=== PATIENT | male | born 1995 | race African-American/Black ===

== ENCOUNTER 2016-08-12 23:41 | Emergency (ER) | payer SELFPAY ==
[~2016-08-12] VITALS: Ht 175.3 cm; Wt 57.2 kg
[2016-08-13] MEDS ORDERED: NKM (00:04)
[2016-08-13 00:05] VITALS: BP 116/46
[2016-08-13 01:30] VITALS: BP 120/60
[2016-08-13 02:30] VITALS: BP 122/64
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
--- NOTE | 2016-08-13 10:04 | Diagnostic Imaging Report ---
Indication: Chest Pain Comparison: None A single view chest radiograph was obtained. Findings: Dense opacification of the left parahilar region are demonstrated. Findings suspicious for pneumonia. There is some volume loss as well with elevation of the left hemidiaphragm noted. Bones are unremarkable. Impression: Pneumonia in the left lung. Superimposed atelectasis and volume loss suspected as well.
== END 2016-08-13 02:30 | disposition home or self-care (01) ==
LOC: EMR 08-13 01:00
DX: D17.1 Benign lipomatous neoplasm of skin and subcutaneous tissue of trunk (principal); F17.200 Nicotine dependence, unspecified, uncomplicated
CPT/HCPCS: 71010; 99283

== ENCOUNTER 2016-08-20 00:22 | Inpatient (IN) | payer MEDICAID ==
[~2016-08-20] VITALS: Ht 175.3 cm; Wt 56.7 kg
[~2016-08-20 00:22] MED LIST: NKM
[2016-08-20] MEDS ORDERED: Piperacillin/Tazobactam 3.375 GM in NS 110 ML IVPB ONE (03:15)
[2016-08-20] MEDS ORDERED: Zosyn 3.375gm inj ONE (03:25)
[2016-08-20 03:31] LABS: BASOPHILS % (AUTO) 0.6 % (0.0-2.0); EOSINOPHILS % (AUTO) 1.3 % (0.0-3.0); LYMPHOCYTES % (AUTO) 23.3 % (20.0-45.0); MEAN CORPUSCULAR HEMOGLOBIN 28.7 PG (27.0-31.0); MEAN CORPUSCULAR HGB CONC 33.1 G/DL (32.0-36.0); MEAN CORPUSCULAR VOLUME 87 FL (80-99); MEAN PLATELET VOLUME 5.5 FL (6.5-10.1); MONOCYTES % (AUTO) 6.5 % (1.0-10.0); NEUTROPHILS % (AUTO) 68.3 % (45.0-75.0); PLATELET COUNT 466 K/UL (150-450); RED BLOOD COUNT 5.08 M/UL (4.70-6.10); RED CELL DISTRIBUTION WIDTH 12.7 % (11.6-14.8)
[2016-08-20 03:54] LABS: ALANINE AMINOTRANSFERASE 13 U/L (3-41); ALBUMIN/GLOBULIN RATIO 1.2 (1.0-2.7); ANION GAP 16 (5-15); ASPARTATE AMINO TRANSFERASE 16 U/L (5-40); CALCIUM 9.9 mg/dL (8.6-10.2); CARBON DIOXIDE 27 mEQ/L (20-30); CHLORIDE 96 mEQ/L (98-107); CREATININE 0.6 mg/dL (0.7-1.2); GLOMERULAR FILTRATION RATE > 60 mL/min (>60); HEMOLYSIS 5; SODIUM 139 mEQ/L (135-145); TOTAL PROTEIN 8.4 g/dL (6.6-8.7)
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
[2016-08-20 05:52] VITALS: BP 106/65
[2016-08-20] MEDS ORDERED: Morphine Sulfate 2mg/ml Inj IVP PRN (06:30)
[2016-08-20] MEDS ORDERED: LORazepam Inj 2mg/ml 1ml IV PRN (06:30)
[2016-08-20 08:11] VITALS: BP 116/70
[2016-08-20] MEDS ORDERED: Vancomycin 1250mg/D5W 275ml IVPB ONE ×2 (08:30)
--- NOTE | 2016-08-20 09:25 | Infectious Diseases Prog Note ---
Assessment/Plan Problems: (1) Chest wall abscess Assessment & Plan: recommend I&D and fluid culture , fungal and AFB, and cytology, thorasic surgery eval is recommended too, will start vancomycin and zosyn empirically (2) Empyema lung Assessment & Plan: recommend thoracentesis and fluids to be sent for culture , fungal and AFB, and cytology , chest tube is highly recommended (3) Sepsis Assessment & Plan: due to the above, on wide spectrum antibiotics coverage, await culture Subjective Allergies: Coded Allergies: No Known Allergies (Unverified , 08/13/16) Objective Vital Signs Last 24 Hour Vital Signs Date Time Temp Pulse Resp B/P Pulse Ox O2 Delivery O2 Flow Rate FiO2 08/20/16 08:11 97.7 70 18 116/70 100 Room Air 08/20/16 06:35 97.9 62 16 106/65 100 Room Air 08/20/16 05:52 97.9 62 16 106/65 100 Room Air 08/20/16 00:26 97.9 74 16 113/55 100 Room Air Height (Feet): 5 Height (Inches): 9.00 Weight (Pounds): 125 Laboratory Tests Test 08/20/16 02:48 White Blood Count 11.0 K/UL (4.8-10.8) H Red Blood Count 5.08 M/UL (4.70-6.10) Hemoglobin 14.6 G/DL (14.2-18.0) Hematocrit 44.0 % (42.0-52.0) Mean Corpuscular Volume 87 FL (80-99) Mean Corpuscular Hemoglobin 28.7 PG (27.0-31.0) Mean Corpuscular Hemoglobin Concent 33.1 G/DL (32.0-36.0) Red Cell Distribution Width 12.7 % (11.6-14.8) Platelet Count 466 K/UL (150-450) H Mean Platelet Volume 5.5 FL (6.5-10.1) L Neutrophils (%) (Auto) 68.3 % (45.0-75.0) Lymphocytes (%) (Auto) 23.3 % (20.0-45.0) Monocytes (%) (Auto) 6.5 % (1.0-10.0) Eosinophils (%) (Auto) 1.3 % (0.0-3.0) Basophils (%) (Auto) 0.6 % (0.0-2.0) Sodium Level 139 mEQ/L (135-145) Potassium Level 4.0 mEQ/L (3.4-4.9) Chloride Level 96 mEQ/L (98-107) L Carbon Dioxide Level 27 mEQ/L (20-30) Anion Gap 16 (5-15) H Blood Urea Nitrogen 7 mg/dL (7-23) Creatinine 0.6 mg/dL (0.7-1.2) L Estimat Glomerular Filtration Rate > 60 mL/min (>60) Glucose Level 87 mg/dL (74-106) Calcium Level 9.9 mg/dL (8.6-10.2) Total Bilirubin < 0.2 mg/dL (0.0-1.2) Aspartate Amino Transf (AST/SGOT) 16 U/L (5-40) Alanine Aminotransferase (ALT/SGPT) 13 U/L (3-41) Alkaline Phosphatase 86 U/L (40-129) Total Protein 8.4 g/dL (6.6-8.7) Albumin 4.7 g/dL (3.5-5.2) Globulin 3.7 g/dL Albumin/Globulin Ratio 1.2 (1.0-2.7) Current Medications Medications (Trade) Dose Ordered Sig/Patricia Route PRN Reason Start Time Stop Time Status Last Admin Dose Admin Acetaminophen (Tylenol) 650 mg Q4H PRN ORAL T>100.5 08/20/16 06:30 09/19/16 06:29 Al Hydroxide/Mg Hydroxide (Mylanta II) 30 ml Q6H PRN ORAL dyspepsia 08/20/16 06:30 09/19/16 06:29 Cefepime HCl 1 gm/ Dextrose 55 ml @ 110 mls/hr EVERY 8 HOURS IV 08/20/16 12:00 08/27/16 11:59 Dextrose (Dextrose 50%) STAT PRN IV Hypoglycemia 08/20/16 06:30 09/19/16 06:29 Heparin Sodium (Porcine) (Heparin 5000 units/ml) 5,000 units EVERY 12 HOURS SUBQ 08/20/16 09:00 09/19/16 08:59 Lorazepam (Ativan 2mg/ml 1ml) 0.5 mg Q4H PRN IV For Anxiety 08/20/16 06:30 2/6/17 06:29 Morphine Sulfate (Morphine Sulfate) 1 mg Q4H PRN IVP PAIN 4-10 08/20/16 06:30 08/27/16 06:29 Ondansetron HCl (Zofran) 4 mg Q6H PRN IVP Nausea & Vomiting 08/20/16 06:30 09/19/16 06:29 Polyethylene Glycol (Miralax) 17 gm HSPRN PRN ORAL Constipation 08/20/16 21:00 09/19/16 20:59 Vancomycin HCl 1.25 gm/Dextrose 275 ml @ 183.333 mls/hr ONCE ONCE IVPB 08/20/16 08:30 08/20/16 09:59 Vancomycin HCl 1 ea 1 ea DAILY PRN MISC Per rx protocol 08/20/16 06:30 09/19/16 06:29 Vancomycin HCl/ Dextrose (Vancomycin/D5W) 275 ml @ 183.708 mls/hr Q12HR IVPB 08/20/16 21:00 08/25/16 20:59 Zolpidem Tartrate (Ambien) 5 mg HSPRN PRN ORAL Insomnia 08/20/16 21:00 09/19/16 20:59 Srikanth Costello M.D. Aug 20, 2016 09:25
[2016-08-20] MEDS: Heparin 5000 units/ml inj SUBQ SCH ×2 (09:42→21:00)
[2016-08-20 11:32] VITALS: BP 106/52
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
[2016-08-20] MEDS ORDERED: Cefepime HCl 1 GM in D5W 55 ML IV SCH (12:00)
[2016-08-20] MEDS: Piperacillin/Tazobactam 3.375 GM in D5W 110 ML IVPB SCH ×2 (14:22→23:50)
[2016-08-20 19:00] VITALS: BP 111/74
--- NOTE | 2016-08-20 20:58 | History and Physical Report ---
DATE OF ADMISSION: 08/20/2016 Time: 01:00 p.m. CONSULTANTS: 1. Srikanth Costello M.D. 2. Rama Handley M.D. CHIEF COMPLAINT: Chest wall abscess and possible pneumonia, sepsis. BRIEF NOTE: This is a 20-year-old male who lives at home presents with left chest swelling, slightly tender, diagnosed with chest abscess and possible pneumonia, admitted to medical floor for further treatment. Currently, calm in bed, no complaints. PAST MEDICAL HISTORY: Nothing. PAST SURGICAL HISTORY: Nothing. MEDICATIONS: MiraLAX, Ambien, vancomycin, Zosyn, heparin, Tylenol, morphine, Zofran, Ativan, and Mylanta. ALLERGIES: Denied. SOCIAL HISTORY: Positive smoking. No alcohol. No intravenous drug abuse. FAMILY HISTORY: Noncontributory . REVIEW OF SYSTEMS: No chest pain or shortness of breath. No nausea. No vomiting. No diarrhea. PHYSICAL EXAMINATION: GENERAL: Calm in bed, alert and oriented x3, no acute distress. VITAL SIGNS: Temperature is 97 degrees, pulse 64, respiratory rate 19, and blood pressure 106/52. CARDIOVASCULAR: No murmur. LUNGS: Clear to auscultation bilaterally. CHEST: Left chest wall area is about 0.5 inch x 2 inch x 3 inch area, slight fluctuance, slightly swelling, and slightly tender. No redness or warmth noted. ABDOMEN: Positive bowel sounds. Soft, nontender, and nondistended. EXTREMITIES: No cyanosis, clubbing, or edema. LABORATORY AND DIAGNOSTIC DATA: White count is 11 and platelets 466,000. BMP showed chloride is 96, creatinine 0.6, otherwise, BMP is normal. ASSESSMENT: 1. Chest wall abscess. 2. . PLAN: Continue previous wound care and antibiotics per Infectious Disease. Pain control. Dietary followup. CBC and BMP in the morning. We will continue to follow. Dr. Costello and Dr. Handley to consult. Brody Abrams D.O. DR: JEAN JOB#: [id number] CC:
[2016-08-20] MEDS ORDERED: Zolpidem 5mg tab ORAL PRN (21:00)
[2016-08-20] MEDS ORDERED: Miralax 17gm pkt ORAL PRN (21:00)
[2016-08-20] MEDS: Vancomycin 1gm/D5W 275ml IVPB SCH ×2 (21:10)
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
[2016-08-21] VITALS: BP 110/53
[2016-08-21] MEDS: Piperacillin/Tazobactam 3.375 GM in D5W 110 ML IVPB SCH ×3 (06:24→22:32)
[2016-08-21 07:22] LABS: BASOPHILS % (AUTO) 0.5 % (0.0-2.0); EOSINOPHILS % (AUTO) 1.4 % (0.0-3.0); LYMPHOCYTES % (AUTO) 20.8 % (20.0-45.0); MEAN CORPUSCULAR HEMOGLOBIN 29.2 PG (27.0-31.0); MEAN CORPUSCULAR HGB CONC 33.6 G/DL (32.0-36.0); MEAN CORPUSCULAR VOLUME 87 FL (80-99); MEAN PLATELET VOLUME 5.6 FL (6.5-10.1); MONOCYTES % (AUTO) 7.7 % (1.0-10.0); NEUTROPHILS % (AUTO) 69.6 % (45.0-75.0); PLATELET COUNT 381 K/UL (150-450); RED BLOOD COUNT 4.52 M/UL (4.70-6.10); RED CELL DISTRIBUTION WIDTH 12.9 % (11.6-14.8); WHITE BLOOD COUNT 8.8 K/UL (4.8-10.8)
[2016-08-21 07:30] LABS: ALANINE AMINOTRANSFERASE 8 U/L (3-41); ANION GAP 13 (5-15); ASPARTATE AMINO TRANSFERASE 11 U/L (5-40); CALCIUM 9.2 mg/dL (8.6-10.2); CARBON DIOXIDE 25 mEQ/L (20-30); CHLORIDE 104 mEQ/L (98-107); CREATININE 0.6 mg/dL (0.7-1.2); GLOMERULAR FILTRATION RATE > 60 mL/min (>60); HEMOLYSIS 4; SODIUM 142 mEQ/L (135-145); TOTAL PROTEIN 6.7 g/dL (6.6-8.7)
[2016-08-21 07:57] VITALS: BP 124/81
[2016-08-21] MEDS: Heparin 5000 units/ml inj SUBQ SCH ×2 (09:00→21:22)
[2016-08-21] MEDS: Vancomycin 1gm/D5W 275ml IVPB SCH ×4 (10:32→21:13)
[2016-08-21 11:53] VITALS: BP 116/51
--- NOTE | 2016-08-21 13:46 | General Progress Note ---
Assessment/Plan Problem List: (1) Mass of chest wall, left ICD Codes: R22.2 - Localized swelling, mass and lump, trunk SNOMED: 528653206 (2) Pneumonia ICD Codes: J18.9 - Pneumonia, unspecified organism SNOMED: 776082330 Status: stable, progressing, tolerating diet Assessment/Plan abx per id dc if clear by id Subjective Constitutional: Reports: weakness Allergies: Coded Allergies: No Known Allergies (Unverified , 08/13/16) All Systems: reviewed and negative except above Subjective calm no compaints Objective Last 24 Hour Vital Signs Date Time Temp Pulse Resp B/P Pulse Ox O2 Delivery O2 Flow Rate FiO2 08/21/16 11:53 98.2 102 21 116/51 97 Room Air 08/21/16 07:57 98.3 69 21 124/81 95 Room Air 08/21/16 00:00 97.3 63 18 110/53 99 Room Air 08/20/16 19:00 97.3 74 20 111/74 100 Room Air Intake and Output 08/20/16 08/21/16 19:00 07:00 Intake Total 420 ml 220 ml Balance 420 ml 220 ml Intake Oral 420 ml 220 ml # Voids 2 4 Laboratory Tests 08/21/16 06:35: White Blood Count 8.8, Red Blood Count 4.52L, Hemoglobin 13.2L, Hematocrit 39.3L , Mean Corpuscular Volume 87, Mean Corpuscular Hemoglobin 29.2, Mean Corpuscular Hemoglobin Concent 33.6, Red Cell Distribution Width 12.9, Platelet Count 381, Mean Platelet Volume 5.6L, Neutrophils (%) (Auto) 69.6, Lymphocytes ( %) (Auto) 20.8, Monocytes (%) (Auto) 7.7, Eosinophils (%) (Auto) 1.4, Basophils (%) (Auto) 0.5, Sodium Level 142, Potassium Level 4.0, Chloride Level 104, Carbon Dioxide Level 25, Anion Gap 13, Blood Urea Nitrogen 9, Creatinine 0.6L, Estimat Glomerular Filtration Rate > 60, Glucose Level 90, Hemoglobin A1c [ Pending], Calcium Level 9.2, Total Bilirubin 0.3, Aspartate Amino Transf (AST/ SGOT) 11, Alanine Aminotransferase (ALT/SGPT) 8, Alkaline Phosphatase 65, Total Protein 6.7, Albumin 3.5, Globulin 3.2, Albumin/Globulin Ratio 1.0, Triglycerides Level [Pending], Cholesterol Level [Pending], LDL Cholesterol [ Pending], HDL Cholesterol [Pending], Cholesterol/HDL Ratio [Pending], Thyroid Stimulating Hormone (TSH) [Pending] Height (Feet): 5 Height (Inches): 9.00 Weight (Pounds): 125 General Appearance: alert EENT: normal ENT inspection Neck: normal alignment Cardiovascular: normal peripheral pulses, normal rate, regular rhythm Respiratory/Chest: chest wall non-tender, lungs clear, normal breath sounds Abdomen: normal bowel sounds, non tender, soft Extremities: normal inspection Edema: no edema noted Arm (L), no edema noted Arm (R), no edema noted Leg (L), no edema noted Leg (R), no edema noted Pedal (L), no edema noted Pedal (R), no edema noted Generalized Neurologic: responsive, motor weakness Skin: normal pigmentation, warm/dry Objective l chest soft mass noted caudal to l nipple area VALENTIN SCHRADER Aug 21, 2016 13:46
[2016-08-21 16:00] VITALS: BP 103/52
--- NOTE | 2016-08-21 16:12 | Diagnostic Imaging Report ---
Indication: Left chest wall fluid collection demonstrated on recent CT Technique: Informed consent obtained prior to commencement of procedure. Prior imaging studies reviewed. Procedure timeout was performed. Sterile prepping and draping. Local anesthesia with lidocaine. Under real-time ultrasound guidance, a Yueh needle was placed into the left chest fluid collection, immediately inferior and medial to the left nipple. A small amount of hemalatha pus was aspirated. A .035 guidewire was inserted, and over this was passed a 7 Filipino pigtail catheter. Stiffener and guidewire were withdrawn. Approximately 30 mL of pus aspirated. Specimen was sent to the lab for microbial analysis. Catheter was fixed to the skin and placed to accordion bag drainage The patient tolerated the procedure well, without immediate complication. Comparison: Reference made to CT scan of earlier the same day Findings: As above Impression: Aspiration and catheter drainage of left chest wall abscess with 7 Filipino drainage catheter, as described. Specimen sent to lab for microbial analysis
--- NOTE | 2016-08-21 16:48 | Infectious Diseases Prog Note ---
Assessment/Plan Problems: (1) Chest wall abscess Assessment & Plan: S/P I&D, fluid culture is pending , thoracic surgery eval is recommended , continue vancomycin and zosyn empirically pending culture results (2) Empyema lung Assessment & Plan: recommend thoracentesis and fluids to be sent for culture , fungal and AFB, and cytology , chest tube is highly recommended (3) Sepsis Assessment & Plan: due to the above, on wide spectrum antibiotics coverage, await culture (4) Pneumonia Assessment & Plan: on wide spectrum antibiotics, await culture . Subjective Constitutional: Denies: anorexia, chills, drenching sweats, fatigue, fever, no symptoms, other HEENT: Denies: congestion, coryza, dysphagia, hearing change, no symptoms, other, visual change Respiratory: Denies: dry cough, no symptoms, other, productive cough, shortness of breath Breasts: Denies: discharge, no symptoms, other, swelling, tenderness Cardiovascular: Denies: chest pain, dyspnea on exertion, no symptoms, other, palpitations Gastrointestinal/Abdominal: Denies: bloating, blood in stool, constipation, diarrhea, nausea, no symptoms, other, vomiting Genitourinary: Denies: dysuria, frequency, hematuria, no symptoms, nocturia, other Neurologic: Denies: confusion, headache, no symptoms, numbness, other, weakness Psychiatric: Denies: anxiety, depression, no symptoms, other Skin: Denies: no symptoms, other, rash, ulcer Endocrine: Denies: feels cold, feels warm, no symptoms, other Hematologic: Denies: bleeding, no symptoms, other, swollen lymph nodes Musculoskeletal: Denies: no symptoms, other, pain, stiffness, swelling Allergies: Coded Allergies: No Known Allergies (Unverified , 08/13/16) Subjective he was doing better, had drainage in his left chest abscess. Objective Vital Signs Last 24 Hour Vital Signs Date Time Temp Pulse Resp B/P Pulse Ox O2 Delivery O2 Flow Rate FiO2 08/21/16 16:00 96.8 67 20 103/52 99 Room Air 08/21/16 11:53 98.2 102 21 116/51 97 Room Air 08/21/16 07:57 98.3 69 21 124/81 95 Room Air 08/21/16 00:00 97.3 63 18 110/53 99 Room Air 08/20/16 19:00 97.3 74 20 111/74 100 Room Air Height (Feet): 5 Height (Inches): 9.00 Weight (Pounds): 125 General Appearance: WD/WN, no acute distress HEENT: normocephalic, atraumatic, anicteric, mucous membranes moist Respiratory/Chest: chest wall non-tender, lungs clear, normal breath sounds, no respiratory distress, no accessory muscle use Cardiovascular: normal peripheral pulses, normal rate, regular rhythm, no gallop/murmur Abdomen: normal bowel sounds, soft, non tender, no organomegaly, non distended , no mass, no scars Extremities: no cyanosis, no clubbing Skin: no rash, no lesions, no ulcers Microbiology Date/Time Source Procedure Growth Status 08/20/16 20:00 Body Fluid Gram Stain - Final Resulted 08/20/16 20:00 Body Fluid Aerobic Culture Pending Resulted 08/20/16 20:00 Body Fluid Anaerobic Culture Pending Resulted Laboratory Tests Test 08/21/16 06:35 White Blood Count 8.8 K/UL (4.8-10.8) Red Blood Count 4.52 M/UL (4.70-6.10) L Hemoglobin 13.2 G/DL (14.2-18.0) L Hematocrit 39.3 % (42.0-52.0) L Mean Corpuscular Volume 87 FL (80-99) Mean Corpuscular Hemoglobin 29.2 PG (27.0-31.0) Mean Corpuscular Hemoglobin Concent 33.6 G/DL (32.0-36.0) Red Cell Distribution Width 12.9 % (11.6-14.8) Platelet Count 381 K/UL (150-450) Mean Platelet Volume 5.6 FL (6.5-10.1) L Neutrophils (%) (Auto) 69.6 % (45.0-75.0) Lymphocytes (%) (Auto) 20.8 % (20.0-45.0) Monocytes (%) (Auto) 7.7 % (1.0-10.0) Eosinophils (%) (Auto) 1.4 % (0.0-3.0) Basophils (%) (Auto) 0.5 % (0.0-2.0) Sodium Level 142 mEQ/L (135-145) Potassium Level 4.0 mEQ/L (3.4-4.9) Chloride Level 104 mEQ/L (98-107) Carbon Dioxide Level 25 mEQ/L (20-30) Anion Gap 13 (5-15) Blood Urea Nitrogen 9 mg/dL (7-23) Creatinine 0.6 mg/dL (0.7-1.2) L Estimat Glomerular Filtration Rate > 60 mL/min (>60) Glucose Level 90 mg/dL (74-106) Hemoglobin A1c Pending Calcium Level 9.2 mg/dL (8.6-10.2) Total Bilirubin 0.3 mg/dL (0.0-1.2) Aspartate Amino Transf (AST/SGOT) 11 U/L (5-40) Alanine Aminotransferase (ALT/SGPT) 8 U/L (3-41) Alkaline Phosphatase 65 U/L (40-129) Total Protein 6.7 g/dL (6.6-8.7) Albumin 3.5 g/dL (3.5-5.2) Globulin 3.2 g/dL Albumin/Globulin Ratio 1.0 (1.0-2.7) Triglycerides Level Pending Cholesterol Level Pending LDL Cholesterol Pending HDL Cholesterol Pending Cholesterol/HDL Ratio Pending Thyroid Stimulating Hormone (TSH) Pending Current Medications Medications (Trade) Dose Ordered Sig/Patricia Route PRN Reason Start Time Stop Time Status Last Admin Dose Admin Acetaminophen (Tylenol) 650 mg Q4H PRN ORAL T>100.5 08/20/16 06:30 09/19/16 06:29 Al Hydroxide/Mg Hydroxide (Mylanta II) 30 ml Q6H PRN ORAL dyspepsia 08/20/16 06:30 09/19/16 06:29 Dextrose (Dextrose 50%) STAT PRN IV Hypoglycemia 08/20/16 06:30 09/19/16 06:29 Heparin Sodium (Porcine) (Heparin 5000 units/ml) 5,000 units EVERY 12 HOURS SUBQ 08/20/16 09:00 09/19/16 08:59 08/20/16 09:42 Lorazepam (Ativan 2mg/ml 1ml) 0.5 mg Q4H PRN IV For Anxiety 08/20/16 06:30 08/27/16 06:29 Morphine Sulfate (Morphine Sulfate) 1 mg Q4H PRN IVP PAIN 4-10 08/20/16 06:30 08/27/16 06:29 Ondansetron HCl (Zofran) 4 mg Q6H PRN IVP Nausea & Vomiting 08/20/16 06:30 09/19/16 06:29 Piperacillin Sod/ Tazobactam Sod/ Dextrose (Zosyn/D5W) 110 ml @ 27.5 mls/hr EVERY 8 HOURS IVPB 08/20/16 14:00 08/25/16 13:59 08/21/16 14:32 Polyethylene Glycol (Miralax) 17 gm HSPRN PRN ORAL Constipation 08/20/16 21:00 09/19/16 20:59 Vancomycin HCl 1 ea 1 ea DAILY PRN MISC Per rx protocol 08/20/16 06:30 09/19/16 06:29 Vancomycin HCl 1 gm/Dextrose 275 ml @ 183.708 mls/hr Q12HR IVPB 08/20/16 21:00 08/25/16 20:59 08/21/16 10:32 Zolpidem Tartrate (Ambien) 5 mg HSPRN PRN ORAL Insomnia 08/20/16 21:00 09/19/16 20:59 Srikanth Costello M.D. Aug 21, 2016 16:48
[2016-08-21] MEDS ORDERED: PPD Tuberculin Skin Test 5TU IDERMAL ONE (18:00)
[2016-08-21 18:04] LABS: BASOPHILS % (AUTO) 0.5 % (0.0-2.0); EOSINOPHILS % (AUTO) 1.3 % (0.0-3.0); LYMPHOCYTES % (AUTO) 19.5 % (20.0-45.0); MEAN CORPUSCULAR HEMOGLOBIN 28.7 PG (27.0-31.0); MEAN CORPUSCULAR VOLUME 90 FL (80-99); MEAN PLATELET VOLUME 5.2 FL (6.5-10.1); MONOCYTES % (AUTO) 6.5 % (1.0-10.0); NEUTROPHILS % (AUTO) 72.3 % (45.0-75.0); PLATELET COUNT 420 K/UL (150-450); RED BLOOD COUNT 4.92 M/UL (4.70-6.10); RED CELL DISTRIBUTION WIDTH 12.7 % (11.6-14.8); WHITE BLOOD COUNT 8.4 K/UL (4.8-10.8)
[2016-08-21 19:00] VITALS: BP 111/61
[2016-08-21] MEDS ORDERED: Tubing IV Secondary IV ONE (19:45)
[2016-08-22] VITALS (12 sets, daily range): BP systolic 100–120; BP diastolic 49–71
[2016-08-22] MEDS: Vancomycin 1gm/D5W 275ml IVPB SCH ×6 (04:14→21:02)
[2016-08-22] MEDS: Piperacillin/Tazobactam 3.375 GM in D5W 110 ML IVPB SCH ×3 (06:14→22:15)
[2016-08-22 07:40] LABS: BASOPHILS % (AUTO) 0.7 % (0.0-2.0); EOSINOPHILS % (AUTO) 1.7 % (0.0-3.0); LYMPHOCYTES % (AUTO) 19.6 % (20.0-45.0); MEAN CORPUSCULAR HEMOGLOBIN 29.2 PG (27.0-31.0); MEAN CORPUSCULAR HGB CONC 33.4 G/DL (32.0-36.0); MEAN CORPUSCULAR VOLUME 88 FL (80-99); MEAN PLATELET VOLUME 5.5 FL (6.5-10.1); MONOCYTES % (AUTO) 7.7 % (1.0-10.0); NEUTROPHILS % (AUTO) 70.5 % (45.0-75.0); PLATELET COUNT 380 K/UL (150-450); RED BLOOD COUNT 4.78 M/UL (4.70-6.10); RED CELL DISTRIBUTION WIDTH 13.1 % (11.6-14.8); WHITE BLOOD COUNT 8.4 K/UL (4.8-10.8)
[2016-08-22 07:57] LABS: ANION GAP 14 (5-15); CALCIUM 9.4 mg/dL (8.6-10.2); CARBON DIOXIDE 25 mEQ/L (20-30); CHLORIDE 101 mEQ/L (98-107); CREATININE 0.6 mg/dL (0.7-1.2); GLOMERULAR FILTRATION RATE > 60 mL/min (>60); HEMOLYSIS 6; POTASSIUM 4.1 mEQ/L (3.4-4.9); SODIUM 140 mEQ/L (135-145)
[2016-08-22] MEDS ORDERED: Lidocaine 1% Plain 30 ml INJ PRN (09:30)
[2016-08-22] MEDS: Heparin 5000 units/ml inj SUBQ SCH ×2 (09:55→21:02)
[2016-08-22 10:42] LABS: INR 1.1 (0.9-1.1); PROTHROMBIN TIME 11.7 SEC (9.30-11.50)
--- NOTE | 2016-08-22 12:32 | Pre-Procedure Note/Attestation ---
Pre-Procedure Note/Attestation Complete Prior to Procedure Planned Procedure: left Procedure Narrative: CT guided lung biopsy Indications for Procedure Pre-Operative Diagnosis: L lung mass or infiltrate Attestation I attest that I discussed the nature of the procedure; its benefits; risks and complications; and alternatives (and the risks and benefits of such alternatives ), prior to the procedure, with the patient (or the patient's legal containers sales representative). I attest that, if there was a reasonable possibility of needing a blood transfusion, the patient (or the patient's legal containers sales representative) was given the [facility] standardized written summary, pursuant to the Conrad Leah Blood Safety Act ([place] Health and Safety Code # 1645, as amended). I attest that I re-evaluated the patient just prior to the surgery and that there has been no change in the patient's H&P, except as documented below: SUJIT KAY M.D. Aug 22, 2016 12:32
--- NOTE | 2016-08-22 14:34 | General Progress Note ---
Assessment/Plan Problem List: (1) Mass of chest wall, left ICD Codes: R22.2 - Localized swelling, mass and lump, trunk SNOMED: 637942069 (2) Pneumonia ICD Codes: J18.9 - Pneumonia, unspecified organism SNOMED: [id number] Status: stable, progressing, tolerating diet Assessment/Plan abx per id cbc bmp am dc if clear by id Subjective Constitutional: Reports: weakness Allergies: Coded Allergies: No Known Allergies (Unverified , 08/13/16) All Systems: reviewed and negative except above Subjective calm no compaints Objective Last 24 Hour Vital Signs Date Time Temp Pulse Resp B/P Pulse Ox O2 Delivery O2 Flow Rate FiO2 08/22/16 13:20 96.7 71 19 113/58 100 Room Air 08/22/16 08:00 96.6 86 20 100/54 100 Room Air 08/22/16 04:00 97.5 62 18 106/49 96 Room Air 08/22/16 00:00 97.7 62 18 106/64 100 Room Air 08/21/16 19:00 97.7 73 20 111/61 100 Room Air 08/21/16 16:00 96.8 67 20 103/52 99 Room Air Intake and Output 08/21/16 08/22/16 19:00 07:00 Intake Total 802.5 ml 511.000 ml Output Total 5 ml 10 ml Balance 797.5 ml 501.000 ml Intake Oral 720 ml 120 ml IV Total 82.5 ml 391.000 ml Output Drainage Total 10 ml Other 5 ml # Voids 3 2 Laboratory Tests 08/21/16 17:30: White Blood Count 8.4, Red Blood Count 4.92, Hemoglobin 14.1L, Hematocrit 44.1, Mean Corpuscular Volume 90, Mean Corpuscular Hemoglobin 28.7, Mean Corpuscular Hemoglobin Concent 32.0, Red Cell Distribution Width 12.7, Platelet Count 420, Mean Platelet Volume 5.2L, Neutrophils (%) (Auto) 72.3, Lymphocytes (%) (Auto) 19.5L, Monocytes (%) (Auto) 6.5, Eosinophils (%) (Auto) 1.3, Basophils (%) (Auto ) 0.5, Lactate Dehydrogenase [Pending], Carcinoembryonic Antigen [Pending], Blastomyces Ab Immunodiffusion [Pending], Cryptococcus Antigen [Pending], Histoplasma Mycelial Antibody [Pending], Histoplasma Antibody w Mycelial Ag [ Pending], Histoplasma Antibody with Yeast Ag [Pending] 08/21/16 19:40: Vancomycin Level Trough 7.5 08/22/16 06:15: White Blood Count 8.4, Red Blood Count 4.78, Hemoglobin 13.9L, Hematocrit 41.8L , Mean Corpuscular Volume 88, Mean Corpuscular Hemoglobin 29.2, Mean Corpuscular Hemoglobin Concent 33.4, Red Cell Distribution Width 13.1, Platelet Count 380, Mean Platelet Volume 5.5L, Neutrophils (%) (Auto) 70.5, Lymphocytes ( %) (Auto) 19.6L, Monocytes (%) (Auto) 7.7, Eosinophils (%) (Auto) 1.7, Basophils (%) (Auto) 0.7, Sodium Level 140, Potassium Level 4.1, Chloride Level 101, Carbon Dioxide Level 25, Anion Gap 14, Blood Urea Nitrogen 7, Creatinine 0.6L, Estimat Glomerular Filtration Rate > 60, Glucose Level 92, Calcium Level 9.4, TB Test (T-Spot) [Pending], TB Test Nil Control (T-Spot) [Pending], TB Test Panel A (T-Spot) [Pending], TB Test Panel B (T-Spot) [Pending], TB Test Positive Control (T-Spot) [Pending] 08/22/16 09:30: Prothrombin Time 11.7H, Prothromb Time International Ratio 1.1, Activated Partial Thromboplast Time 29 Height (Feet): 5 Height (Inches): 9.00 Weight (Pounds): 125 General Appearance: alert EENT: normal ENT inspection Neck: normal alignment Cardiovascular: normal peripheral pulses, normal rate, regular rhythm Respiratory/Chest: chest wall non-tender, lungs clear, normal breath sounds Abdomen: normal bowel sounds, non tender, soft Extremities: normal inspection Edema: no edema noted Arm (L), no edema noted Arm (R), no edema noted Leg (L), no edema noted Leg (R), no edema noted Pedal (L), no edema noted Pedal (R), no edema noted Generalized Neurologic: responsive, motor weakness Skin: normal pigmentation, warm/dry Objective l chest soft mass noted caudal to l nipple area VALENTIN SCHRADER Aug 22, 2016 14:34
[2016-08-22 14:36] LABS: HEMOGLOBIN A1C 4.9 % (< 6.0)
[2016-08-22 14:41] LABS: CHOLESTEROL 107 mg/dL (< 200); CHOLESTEROL/HDL RATIO 3.7 (3.3-4.4); LDL CHOLESTEROL (CALC.) 66 mg/dL (60-99)
--- NOTE | 2016-08-22 15:03 | Diagnostic Imaging Report ---
Clinical Indication: Cough, chest pain, evaluation of left lung infiltrate and left chest wall abscess Technique: IV administration nonionic contrast. Spiral acquisition obtained through the chest. Multiplanar reconstructions generated. Total dose length product 654 mGycm. CTDIvol(s) 8, 8, 18 mGy Comparison: Noncontrast CT chest dated 08/20/2016 Findings: Dense consolidation of the posterior inferior left upper lobe, extending into the suprahilar region, is again demonstrated. There is less extensive opacity involving the adjacent anterior left lower lobe. This area contains air bronchograms. In addition, blood vessel is seen running through it. The area consolidation is generally hypoattenuating centrally within the consolidated lung, there is a 2 x 1 by this 2 cm area of the lower attenuation in which likely represents fluid within the major fissure. The overall lesion measures approximately 7.4 cm transverse by 5.9 cm AP by 7.6 cm craniocaudad. There is an artery which comes off of the celiac axis, traverses the left hemidiaphragm, and courses along the lateral heart border, appearing to feed a portion of the consolidated area. The venous drainage is not identifiable. Inferior to the consolidated lung, there is a somewhat discrete fluid collection which measures approximately 2.3 cm AP by 2 cm transverse by 2.3 cm craniocaudad. The infiltrate and pleural collections appear identical in size and extent to the previous exam. There is a pigtail catheter now within the previously reported left chest wall fluid collection. The fluid collection appears completely evacuated. There is still some abnormal soft tissue in the left chest wall which probably represents residual phlegmon. On the current images, the soft tissue planes between the chest wall and pleural space appear blurred, and communication between the tube is in the possibility. As reported previously, no osseous erosion is demonstrated. The remainder of the lungs are clear. The heart size is normal. There is no pericardial effusion. There is no mediastinal or hilar mass or adenopathy. The included thyroid is unremarkable. No axillary or chest wall mass or adenopathy. The included upper abdominal viscera are unremarkable. Impression: Extensive pulmonary parenchymal opacity, as described, unchanged since 08/20/2016. Suspect that this is mostly due to infiltrate, but scarring or tumor are also a possibility There is an artery extending from the celiac axis to the medial inferior left lung. This indicates that a component of the parenchymal opacity represents a pulmonary sequestration, probably an intralobar sequestration within the left upper lobe. The extent of the sequestration is uncertain. A considerable portion of the opacified parenchyma exist outside the sequestration however, as air bronchograms are seen running through the area of opacity; sequestrations do not communicate with the bronchial tree Small amount of pleural fluid inferior to the consolidated lung. There is also a small collection of fluid within the consolidated lung which is in the expected region of the may fissure and probably represents fluid within the major fissure. Both of these likely represent infected collections, either parapneumonic pleural effusions or empyemas Previously demonstrated left chest wall fluid collection now has a drainage catheter and and appears largely drained. It is quite possible given the contiguity and poor definition of tissue planes from the pleural/clinical process that this represents an empyema necessitans. Other than the drainage of the chest wall abscess, there is no significant interim change from the prior study of 08/20/2016 Findings discussed by phone with Dr. Handley at the time of interpretation The CT scanner at [facility] is accredited by the [employer] and the scans are performed using protocols designed to limit radiation exposure to -- as low as reasonably achievable to attain images of sufficient resolution adequate for diagnostic evaluation.
--- NOTE | 2016-08-22 16:18 | Infectious Diseases Prog Note ---
Assessment/Plan Problems: (1) Chest wall abscess Assessment & Plan: S/P I&D, fluid culture is pending , thoracic surgery eval is recommended , continue vancomycin and zosyn empirically pending culture results (2) Empyema lung Assessment & Plan: recommend thoracentesis and fluids to be sent for culture , fungal and AFB, and cytology , chest tube is highly recommended (3) Sepsis Assessment & Plan: due to the above, on wide spectrum antibiotics coverage, await culture (4) Pneumonia Assessment & Plan: on wide spectrum antibiotics, await culture . Subjective Constitutional: Denies: anorexia, chills, drenching sweats, fatigue, fever, no symptoms, other HEENT: Denies: congestion, coryza, dysphagia, hearing change, no symptoms, other, visual change Respiratory: Reports: dry cough Breasts: Reports: tenderness Cardiovascular: Denies: chest pain, dyspnea on exertion, no symptoms, other, palpitations Gastrointestinal/Abdominal: Denies: bloating, blood in stool, constipation, diarrhea, nausea, no symptoms, other, vomiting Genitourinary: Denies: dysuria, frequency, hematuria, no symptoms, nocturia, other Neurologic: Denies: confusion, headache, no symptoms, numbness, other, weakness Psychiatric: Denies: anxiety, depression, no symptoms, other Skin: Denies: no symptoms, other, rash, ulcer Endocrine: Denies: feels cold, feels warm, no symptoms, other Hematologic: Denies: bleeding, no symptoms, other, swollen lymph nodes Musculoskeletal: Denies: no symptoms, other, pain, stiffness, swelling Allergies: Coded Allergies: No Known Allergies (Unverified , 08/13/16) Subjective he was doing better, had drainage in his left chest abscess. Objective Vital Signs Last 24 Hour Vital Signs Date Time Temp Pulse Resp B/P Pulse Ox O2 Delivery O2 Flow Rate FiO2 08/22/16 14:35 96.8 64 20 115/60 100 Room Air 08/22/16 14:05 96.6 69 20 120/61 100 Room Air 08/22/16 13:35 98.1 72 20 104/63 100 Room Air 08/22/16 13:20 96.7 71 19 113/58 100 Room Air 08/22/16 13:05 97.6 67 20 111/49 100 Room Air 08/22/16 12:50 97.6 72 20 106/71 100 Room Air 08/22/16 08:00 96.6 86 20 100/54 100 Room Air 08/22/16 04:00 97.5 62 18 106/49 96 Room Air 08/22/16 00:00 97.7 62 18 106/64 100 Room Air 08/21/16 19:00 97.7 73 20 111/61 100 Room Air Height (Feet): 5 Height (Inches): 9.00 Weight (Pounds): 125 General Appearance: WD/WN, no acute distress HEENT: normocephalic, atraumatic, anicteric, mucous membranes moist Respiratory/Chest: chest wall non-tender, lungs clear, normal breath sounds, no respiratory distress, no accessory muscle use Breasts: other Cardiovascular: normal peripheral pulses, normal rate, regular rhythm, no gallop/murmur, no JVD Abdomen: normal bowel sounds, soft, non tender, no organomegaly, non distended , no mass, no scars Extremities: no cyanosis, no clubbing Skin: no rash, no lesions, no ulcers Microbiology Date/Time Source Procedure Growth Status 08/20/16 20:00 Body Fluid Gram Stain - Final Resulted 08/20/16 20:00 Body Fluid Aerobic Culture - Preliminary NO GROWTH AFTER 24 HOURS Resulted 08/20/16 20:00 Body Fluid Anaerobic Culture Pending Resulted Laboratory Tests Test 08/21/16 17:30 08/21/16 19:40 08/22/16 06:15 08/22/16 09:30 White Blood Count 8.4 K/UL (4.8-10.8) 8.4 K/UL (4.8-10.8) Red Blood Count 4.92 M/UL (4.70-6.10) 4.78 M/UL (4.70-6.10) Hemoglobin 14.1 G/DL (14.2-18.0) L 13.9 G/DL (14.2-18.0) L Hematocrit 44.1 % (42.0-52.0) 41.8 % (42.0-52.0) L Mean Corpuscular Volume 90 FL (80-99) 88 FL (80-99) Mean Corpuscular Hemoglobin 28.7 PG (27.0-31.0) 29.2 PG (27.0-31.0) Mean Corpuscular Hemoglobin Concent 32.0 G/DL (32.0-36.0) 33.4 G/DL (32.0-36.0) Red Cell Distribution Width 12.7 % (11.6-14.8) 13.1 % (11.6-14.8) Platelet Count 420 K/UL (150-450) 380 K/UL (150-450) Mean Platelet Volume 5.2 FL (6.5-10.1) L 5.5 FL (6.5-10.1) L Neutrophils (%) (Auto) 72.3 % (45.0-75.0) 70.5 % (45.0-75.0) Lymphocytes (%) (Auto) 19.5 % (20.0-45.0) L 19.6 % (20.0-45.0) L Monocytes (%) (Auto) 6.5 % (1.0-10.0) 7.7 % (1.0-10.0) Eosinophils (%) (Auto) 1.3 % (0.0-3.0) 1.7 % (0.0-3.0) Basophils (%) (Auto) 0.5 % (0.0-2.0) 0.7 % (0.0-2.0) Lactate Dehydrogenase 168 U/L (135-230) Carcinoembryonic Antigen 1.0 ng/mL Blastomyces Ab Immunodiffusion Pending Cryptococcus Antigen Pending Histoplasma Mycelial Antibody Pending Histoplasma Antibody w Mycelial Ag Pending Histoplasma Antibody with Yeast Ag Pending Vancomycin Level Trough 7.5 ug/mL (5.0-12.0) Sodium Level 140 mEQ/L (135-145) Potassium Level 4.1 mEQ/L (3.4-4.9) Chloride Level 101 mEQ/L (98-107) Carbon Dioxide Level 25 mEQ/L (20-30) Anion Gap 14 (5-15) Blood Urea Nitrogen 7 mg/dL (7-23) Creatinine 0.6 mg/dL (0.7-1.2) L Estimat Glomerular Filtration Rate > 60 mL/min (>60) Glucose Level 92 mg/dL (74-106) Calcium Level 9.4 mg/dL (8.6-10.2) TB Test (T-Spot) Pending TB Test Nil Control (T-Spot) Pending TB Test Panel A (T-Spot) Pending TB Test Panel B (T-Spot) Pending TB Test Positive Control (T-Spot) Pending Prothrombin Time 11.7 SEC (9.30-11.50) H Prothromb Time International Ratio 1.1 (0.9-1.1) Activated Partial Thromboplast Time 29 SEC (23-33) Current Medications Medications (Trade) Dose Ordered Sig/Patricia Route PRN Reason Start Time Stop Time Status Last Admin Dose Admin Acetaminophen (Tylenol) 650 mg Q4H PRN ORAL T>100.5 08/20/16 06:30 09/19/16 06:29 Al Hydroxide/Mg Hydroxide (Mylanta II) 30 ml Q6H PRN ORAL dyspepsia 08/20/16 06:30 09/19/16 06:29 Dextrose (Dextrose 50%) STAT PRN IV Hypoglycemia 08/20/16 06:30 09/19/16 06:29 Heparin Sodium (Porcine) (Heparin 5000 units/ml) 5,000 units EVERY 12 HOURS SUBQ 08/20/16 09:00 09/19/16 08:59 08/22/16 09:55 Lidocaine HCl (Xylocaine 1% 30ml) 30 ml ONCE PRN INJ FOR USE DURING BIOPSY 08/22/16 09:30 08/23/16 23:59 Lorazepam (Ativan 2mg/ml 1ml) 0.5 mg Q4H PRN IV For Anxiety 08/20/16 06:30 08/27/16 06:29 Morphine Sulfate (Morphine Sulfate) 1 mg Q4H PRN IVP PAIN 4-10 08/20/16 06:30 08/27/16 06:29 Ondansetron HCl (Zofran) 4 mg Q6H PRN IVP Nausea & Vomiting 08/20/16 06:30 09/19/16 06:29 Piperacillin Sod/ Tazobactam Sod 3.375 gm/Dextrose 110 ml @ 27.5 mls/hr EVERY 8 HOURS IVPB 08/20/16 14:00 08/25/16 13:59 08/22/16 14:30 Polyethylene Glycol (Miralax) 17 gm HSPRN PRN ORAL Constipation 08/20/16 21:00 09/19/16 20:59 Vancomycin HCl 1 ea 1 ea DAILY PRN MISC Per rx protocol 08/20/16 06:30 09/19/16 06:29 Vancomycin HCl/ Dextrose (Vancomycin/D5W) 275 ml @ 183.708 mls/hr Q8H IVPB 08/21/16 21:00 08/26/16 20:59 08/22/16 12:57 Zolpidem Tartrate (Ambien) 5 mg HSPRN PRN ORAL Insomnia 08/20/16 21:00 09/19/16 20:59 Srikanth Costello M.D. Aug 22, 2016 16:18
--- NOTE | 2016-08-22 16:56 | Diagnostic Imaging Report ---
Indication: MASS Technique: Informed consent obtained prior to this and of the procedure. Prior imaging studies reviewed.. Spiral acquisitions obtained through the chest for localizing purposes.. Intended puncture site sterilely prepped and draped. Local anesthesia with lidocaine. Under CT guidance, consolidated lung in the left upper lobe was accessed using a 16-gauge guide needle. CT scan confirms satisfactory needle tip position Multiple specimens then obtained using and automated biopsy gun, using semi-automatic configuration. Specimens were sent for histology, culture, sensitivity, acid-fast bacteria, and fungal analysis. Completion CT performed, demonstrating no evidence of hemorrhage or pneumothorax. Total dose length product 480 mGycm. CTDIvol(s) 11x2, 10x3 mGy. Radiation dose was minimized using automated exposure control Comparison: Reference made to CT scan performed immediately prior Findings: Intraprocedural images demonstrate tip of the guide needle at the periphery of the target area of parenchymal abnormality. Completion images demonstrate no evidence of hemorrhage or pneumothorax Impression: Apparently successful biopsy of consolidated left upper lobe, as described. Specimens sent for histological and microbial analysis The CT scanner at [facility] is accredited by the [employer] and the scans are performed using protocols designed to limit radiation exposure to as low as reasonably achievable to attain images of sufficient resolution adequate for diagnostic evaluation.
[2016-08-23] VITALS: BP 112/60
[2016-08-23 04:00] VITALS: BP 95/50
[2016-08-23] MEDS: Vancomycin 1gm/D5W 275ml IVPB SCH ×6 (04:07→21:21)
[2016-08-23] MEDS: Piperacillin/Tazobactam 3.375 GM in D5W 110 ML IVPB SCH ×3 (05:50→22:00)
[2016-08-23 08:01] LABS: BASOPHILS % (AUTO) 0.4 % (0.0-2.0); EOSINOPHILS % (AUTO) 1.3 % (0.0-3.0); LYMPHOCYTES % (AUTO) 17.9 % (20.0-45.0); MEAN CORPUSCULAR HEMOGLOBIN 28.4 PG (27.0-31.0); MEAN CORPUSCULAR HGB CONC 32.6 G/DL (32.0-36.0); MEAN CORPUSCULAR VOLUME 87 FL (80-99); MEAN PLATELET VOLUME 5.4 FL (6.5-10.1); MONOCYTES % (AUTO) 7.3 % (1.0-10.0); NEUTROPHILS % (AUTO) 73.1 % (45.0-75.0); PLATELET COUNT 430 K/UL (150-450); RED BLOOD COUNT 4.76 M/UL (4.70-6.10); WHITE BLOOD COUNT 8.4 K/UL (4.8-10.8)
[2016-08-23 08:38] VITALS: BP 100/55
[2016-08-23] MEDS: Heparin 5000 units/ml inj SUBQ SCH ×2 (09:00→20:17)
[2016-08-23 11:59] VITALS: BP 105/58
--- NOTE | 2016-08-23 12:59 | Diagnostic Imaging Report ---
Clinical Indication: MASS chest pain Technique: Spiral acquisitions obtained through the chest. No IV contrast utilized, reason not stated. Multiplanar reconstructions generated. Total dose length product 469 mGycm. CTDIvol(s) 12 mGy Comparison: Reference made to chest radiograph of 08/13/2016 Findings:Dense opacity with some central air bronchograms is seen within the inferior lingula and crossing the major fissure into the adjacent anterior left lower lobe. This overall measures 7.5 cm transverse by 8.4 cm AP by 12 cm craniocaudad. No associated pleural fluid. There is a very small patchy opacity at the left lung base. The right lung and pleural space are clear. Normal heart size. No mediastinal or hilar mass or adenopathy. There is a prominent prevascular space node which measures 10 mm in diameter. The included thyroid is unremarkable. There is a soft tissue opacity involving the anterolateral left chest wall in the region of the breast below the pectoralis muscle, appearing contiguous with the pectoralis. This demonstrates central low-attenuation. This measures approximately 9 cm transverse by 2.5 cm thick by 10 cm craniocaudad. This is superficial to the pulmonary process, although not clearly contiguous with it. The bones are unremarkable. The included upper abdominal viscera are unremarkable. Impression: Left chest wall mass/fluid collection, central low attenuation suspicious for abscess. Extensive pulmonary parenchymal consolidation immediately deep to the chest wall process. It is unclear as to other the chest wall process invades through the thoracic wall, so it is uncertain whether these represent a contiguous process or are 2 separate processes. This agrees with the preliminary interpretation provided overnight by [facility]. The CT scanner at [facility] is accredited by the [employer] and the scans are performed using protocols designed to limit radiation exposure to as low as reasonably achievable to attain images of sufficient resolution adequate for diagnostic evaluation.
--- NOTE | 2016-08-23 13:00 | Diagnostic Imaging Report ---
Indication: Status post lung biopsy Technique: One view of the chest Comparison: 08/13/2016 Findings: There is no evidence of pneumothorax. Extensive consolidation of the mid left mid and lower lung is again demonstrated. 2 metallic foreign bodies project over the left lower border, not evident previously, likely external to the patient. A pigtail drainage catheter is seen draining a chest wall abscess. The pleural spaces, right lung are clear. Impression: No postbiopsy pneumothorax demonstrated Left chest wall drainage catheter now in place Persistent left lung infiltrates
--- NOTE | 2016-08-23 13:01 | General Progress Note ---
Assessment/Plan Problem List: (1) Mass of chest wall, left ICD Codes: R22.2 - Localized swelling, mass and lump, trunk SNOMED: 782046079 (2) Pneumonia ICD Codes: J18.9 - Pneumonia, unspecified organism SNOMED: 773943033 Status: stable, progressing, tolerating diet Assessment/Plan abx per id cbc bmp am dc if clear by id Subjective Constitutional: Reports: weakness Allergies: Coded Allergies: No Known Allergies (Unverified , 08/13/16) All Systems: reviewed and negative except above Subjective calm no compaints Objective Last 24 Hour Vital Signs Date Time Temp Pulse Resp B/P Pulse Ox O2 Delivery O2 Flow Rate FiO2 08/23/16 11:59 98.4 72 20 105/58 100 Room Air 08/23/16 08:38 98.0 70 20 100/55 100 Room Air 08/23/16 04:00 97.5 62 16 95/50 99 Room Air 08/23/16 00:00 97.7 79 18 112/60 100 Room Air 08/22/16 20:00 97.3 64 18 103/67 100 Room Air 08/22/16 16:30 96.1 65 19 106/55 100 Room Air 08/22/16 15:35 97.0 65 20 113/63 100 Room Air 08/22/16 14:35 96.8 64 20 115/60 100 Room Air 08/22/16 14:05 96.6 69 20 120/61 100 Room Air 08/22/16 13:35 98.1 72 20 104/63 100 Room Air 08/22/16 13:20 96.7 71 19 113/58 100 Room Air 08/22/16 13:05 97.6 67 20 111/49 100 Room Air Intake and Output 08/22/16 08/23/16 19:00 07:00 Intake Total 1077.416 ml 852.5 ml Output Total 5 ml 10 ml Balance 1072.416 ml 842.5 ml Intake Oral 600 ml 440 ml IV Total 477.416 ml 412.5 ml Output Drainage Total 10 ml Other 5 ml # Voids 3 3 # Bowel Movements 1 Laboratory Tests 08/23/16 06:05: M. tuberculosis Complex DNA (PCR) [Pending] 08/23/16 07:35: White Blood Count 8.4, Red Blood Count 4.76, Hemoglobin 13.5L, Hematocrit 41.4L , Mean Corpuscular Volume 87, Mean Corpuscular Hemoglobin 28.4, Mean Corpuscular Hemoglobin Concent 32.6, Red Cell Distribution Width 13.0, Platelet Count 430, Mean Platelet Volume 5.4L, Neutrophils (%) (Auto) 73.1, Lymphocytes ( %) (Auto) 17.9L, Monocytes (%) (Auto) 7.3, Eosinophils (%) (Auto) 1.3, Basophils (%) (Auto) 0.4 08/23/16 09:00: TB Test (T-Spot) [Pending], TB Test Nil Control (T-Spot) [Pending], TB Test Panel A (T-Spot) [Pending], TB Test Panel B (T-Spot) [Pending], TB Test Positive Control (T-Spot) [Pending] Height (Feet): 5 Height (Inches): 9.00 Weight (Pounds): 125 General Appearance: lethargic EENT: normal ENT inspection Neck: normal alignment Cardiovascular: normal peripheral pulses, normal rate, regular rhythm Respiratory/Chest: chest wall non-tender, lungs clear, normal breath sounds Abdomen: normal bowel sounds, non tender, soft Extremities: normal inspection Edema: no edema noted Arm (L), no edema noted Arm (R), no edema noted Leg (L), no edema noted Leg (R), no edema noted Pedal (L), no edema noted Pedal (R), no edema noted Generalized Neurologic: responsive, motor weakness Skin: normal pigmentation, warm/dry Objective l chest soft mass noted caudal to l nipple area VALENTIN SCHRADER Aug 23, 2016 13:01
[2016-08-23 16:07] VITALS: BP 105/68
--- NOTE | 2016-08-23 19:26 | Infectious Diseases Prog Note ---
Assessment/Plan Problems: (1) Chest wall abscess Assessment & Plan: S/P I&D, fluid culture is pending , will continue vancomycin and zosyn empirically for now pending culture results (2) Empyema lung Assessment & Plan: due to bacterial VS fungal VS TB , had lung biopsy , await culture results and pathology . may need chest tube . (3) Sepsis Assessment & Plan: due to the above, on wide spectrum antibiotics coverage, await culture (4) Pneumonia Assessment & Plan: had lung biopsy, with culture is pending , continue wide spectrum antibiotics. Subjective Constitutional: Denies: anorexia, chills, drenching sweats, fatigue, fever, no symptoms, other Respiratory: Denies: dry cough, no symptoms, other, productive cough, shortness of breath Cardiovascular: Denies: chest pain, dyspnea on exertion, no symptoms, other, palpitations Gastrointestinal/Abdominal: Denies: bloating, blood in stool, constipation, diarrhea, nausea, no symptoms, other, vomiting Genitourinary: Denies: dysuria, frequency, hematuria, no symptoms, nocturia, other Neurologic: Denies: confusion, headache, no symptoms, numbness, other, weakness Psychiatric: Denies: anxiety, depression, no symptoms, other Skin: Denies: no symptoms, other, rash, ulcer Endocrine: Denies: feels cold, feels warm, no symptoms, other Hematologic: Denies: bleeding, no symptoms, other, swollen lymph nodes Musculoskeletal: Reports: pain Allergies: Coded Allergies: No Known Allergies (Unverified , 08/13/16) Subjective he had lung biopsy , still has drainage in his left chest abscess. Objective Vital Signs Last 24 Hour Vital Signs Date Time Temp Pulse Resp B/P Pulse Ox O2 Delivery O2 Flow Rate FiO2 08/23/16 16:07 97.3 68 19 105/68 100 Room Air 08/23/16 11:59 98.4 72 20 105/58 100 Room Air 08/23/16 08:38 98.0 70 20 100/55 100 Room Air 08/23/16 04:00 97.5 62 16 95/50 99 Room Air 08/23/16 00:00 97.7 79 18 112/60 100 Room Air 08/22/16 20:00 97.3 64 18 103/67 100 Room Air Height (Feet): 5 Height (Inches): 9.00 Weight (Pounds): 125 General Appearance: WD/WN, no acute distress HEENT: normocephalic, atraumatic, anicteric, mucous membranes moist Respiratory/Chest: normal breath sounds, no respiratory distress, no accessory muscle use, decreased breath sounds, crackles/rales Cardiovascular: normal peripheral pulses, normal rate, regular rhythm, no gallop/murmur, no JVD Abdomen: normal bowel sounds, soft, non tender, no organomegaly, non distended , no mass Extremities: no cyanosis, no clubbing Skin: no rash, no lesions, no ulcers Microbiology Date/Time Source Procedure Growth Status 08/20/16 20:00 Body Fluid AFB Specimen Processing Tissue - Final Resulted 08/20/16 20:00 Body Fluid Acid Fast Bacilli Smear - Final Resulted 08/20/16 20:00 Body Fluid Acid Fast Bacilli Culture Pending Resulted 08/20/16 20:00 Body Fluid Gram Stain - Final Resulted 08/20/16 20:00 Body Fluid Aerobic Culture - Preliminary NO GROWTH AFTER 48 HOURS Resulted 08/20/16 20:00 Body Fluid Anaerobic Culture Pending Resulted 08/22/16 01:30 Sputum Expectorated AFB Specimen Processing Tissue - Final Resulted 08/22/16 01:30 Sputum Expectorated Acid Fast Bacilli Smear - Final Resulted 08/22/16 01:30 Sputum Expectorated Acid Fast Bacilli Culture Pending Resulted 08/22/16 13:05 Lung Left Lower Lobe Gram Stain - Final Resulted 08/22/16 13:05 Lung Left Lower Lobe Surgical Biopsy Culture - Preliminary NO GROWTH AFTER 24 HOURS Resulted Laboratory Tests Test 08/23/16 06:05 08/23/16 07:35 08/23/16 09:00 M. tuberculosis Complex DNA (PCR) Pending White Blood Count 8.4 K/UL (4.8-10.8) Red Blood Count 4.76 M/UL (4.70-6.10) Hemoglobin 13.5 G/DL (14.2-18.0) L Hematocrit 41.4 % (42.0-52.0) L Mean Corpuscular Volume 87 FL (80-99) Mean Corpuscular Hemoglobin 28.4 PG (27.0-31.0) Mean Corpuscular Hemoglobin Concent 32.6 G/DL (32.0-36.0) Red Cell Distribution Width 13.0 % (11.6-14.8) Platelet Count 430 K/UL (150-450) Mean Platelet Volume 5.4 FL (6.5-10.1) L Neutrophils (%) (Auto) 73.1 % (45.0-75.0) Lymphocytes (%) (Auto) 17.9 % (20.0-45.0) L Monocytes (%) (Auto) 7.3 % (1.0-10.0) Eosinophils (%) (Auto) 1.3 % (0.0-3.0) Basophils (%) (Auto) 0.4 % (0.0-2.0) TB Test (T-Spot) Pending TB Test Nil Control (T-Spot) Pending TB Test Panel A (T-Spot) Pending TB Test Panel B (T-Spot) Pending TB Test Positive Control (T-Spot) Pending Current Medications Medications (Trade) Dose Ordered Sig/Patricia Route PRN Reason Start Time Stop Time Status Last Admin Dose Admin Acetaminophen (Tylenol) 650 mg Q4H PRN ORAL T>100.5 08/20/16 06:30 09/19/16 06:29 Al Hydroxide/Mg Hydroxide (Mylanta II) 30 ml Q6H PRN ORAL dyspepsia 08/20/16 06:30 09/19/16 06:29 Dextrose (Dextrose 50%) STAT PRN IV Hypoglycemia 08/20/16 06:30 09/19/16 06:29 Heparin Sodium (Porcine) (Heparin 5000 units/ml) 5,000 units EVERY 12 HOURS SUBQ 08/20/16 09:00 09/19/16 08:59 08/22/16 21:02 Lidocaine HCl (Xylocaine 1% 30ml) 30 ml ONCE PRN INJ FOR USE DURING BIOPSY 08/22/16 09:30 08/23/16 23:59 Lorazepam (Ativan 2mg/ml 1ml) 0.5 mg Q4H PRN IV For Anxiety 08/20/16 06:30 08/27/16 06:29 Morphine Sulfate (Morphine Sulfate) 1 mg Q4H PRN IVP PAIN 4-10 08/20/16 06:30 2 06:29 Ondansetron HCl (Zofran) 4 mg Q6H PRN IVP Nausea & Vomiting 08/20/16 06:30 3/1/17 06:29 08/23/16 12:49 Piperacillin Sod/ Tazobactam Sod 3.375 gm/Dextrose 110 ml @ 27.5 mls/hr EVERY 8 HOURS IVPB 08/20/16 14:00 08/25/16 13:59 08/23/16 14:27 Polyethylene Glycol (Miralax) 17 gm HSPRN PRN ORAL Constipation 08/20/16 21:00 09/19/16 20:59 Vancomycin HCl 1 ea 1 ea DAILY PRN MISC Per rx protocol 08/20/16 06:30 09/19/16 06:29 Vancomycin HCl/ Dextrose (Vancomycin/D5W) 275 ml @ 183.708 mls/hr Q8H IVPB 08/21/16 21:00 08/26/16 20:59 08/23/16 12:37 Zolpidem Tartrate (Ambien) 5 mg HSPRN PRN ORAL Insomnia 08/20/16 21:00 09/19/16 20:59 Srikanth Costello M.D. Aug 23, 2016 19:26
[2016-08-23 20:22] VITALS: BP 93/59
[2016-08-23] MEDS: Mylanta II UD 30ml ORAL PRN (23:19)
[2016-08-24] VITALS: BP 104/53
[2016-08-24 04:00] VITALS: BP 98/46
[2016-08-24] MEDS: Piperacillin/Tazobactam 3.375 GM in D5W 110 ML IVPB SCH ×2 (05:05→14:03)
[2016-08-24 06:40] LABS: BASOPHILS % (AUTO) 0.4 % (0.0-2.0); EOSINOPHILS % (AUTO) 0.6 % (0.0-3.0); LYMPHOCYTES % (AUTO) 12.3 % (20.0-45.0); MEAN CORPUSCULAR HEMOGLOBIN 28.8 PG (27.0-31.0); MEAN CORPUSCULAR HGB CONC 32.9 G/DL (32.0-36.0); MEAN CORPUSCULAR VOLUME 88 FL (80-99); MEAN PLATELET VOLUME 5.6 FL (6.5-10.1); MONOCYTES % (AUTO) 9.2 % (1.0-10.0); NEUTROPHILS % (AUTO) 77.6 % (45.0-75.0); PLATELET COUNT 400 K/UL (150-450); RED BLOOD COUNT 4.67 M/UL (4.70-6.10); RED CELL DISTRIBUTION WIDTH 12.8 % (11.6-14.8); WHITE BLOOD COUNT 12.6 K/UL (4.8-10.8)
[2016-08-24 07:08] LABS: CALCIUM 9.6 mg/dL (8.6-10.2); CREATININE 1.8 mg/dL (0.7-1.2); GLOMERULAR FILTRATION RATE 58.5 mL/min (>60); POTASSIUM 4.1 mEQ/L (3.4-4.9)
[2016-08-24 08:00] VITALS: BP 105/53
[2016-08-24] MEDS: Heparin 5000 units/ml inj SUBQ SCH ×2 (09:13→21:00)
[2016-08-24] MEDS ORDERED: Vancomycin 1 GM in D5W 275 ML IVPB SCH (10:00)
--- NOTE | 2016-08-24 11:18 | Diagnostic Imaging Report ---
Indication: Shortness of breath Technique: One view of the chest Comparison: 08/22/2016 Findings: Vague area of lucency has developed in the new portion of the previously described left mid and lower lung infiltrate. Left chest wall catheter remains. Right lung, bilateral pleural spaces remain clear. Impression: Vague area of lucency developing in the medial aspect of previously demonstrated left mid and lower lung infiltrate, could represent area of clearing or developing area of cavitation. Further followup chest radiographs are recommended Other findings as noted
[2016-08-24 12:00] VITALS: BP 104/51
[2016-08-24 12:15] LABS: CRYPTOCOCCAL ANTIGEN SERUM Negative (Negative)
--- NOTE | 2016-08-24 13:24 | General Progress Note ---
Assessment/Plan Problem List: (1) Mass of chest wall, left ICD Codes: R22.2 - Localized swelling, mass and lump, trunk SNOMED: 994942361 (2) Pneumonia ICD Codes: J18.9 - Pneumonia, unspecified organism SNOMED: 848556471 Status: stable, progressing, tolerating diet Assessment/Plan abx per id cbc bmp am dc if clear by id Subjective Constitutional: Reports: weakness Allergies: Coded Allergies: No Known Allergies (Unverified , 08/13/16) All Systems: reviewed and negative except above Subjective calm no complaints Objective Last 24 Hour Vital Signs Date Time Temp Pulse Resp B/P Pulse Ox O2 Delivery O2 Flow Rate FiO2 08/24/16 12:00 97.9 63 20 104/51 100 Room Air 08/24/16 08:00 98.0 66 20 105/53 100 Room Air 08/24/16 04:00 98.1 55 18 98/46 100 Room Air 08/24/16 00:00 97.9 55 18 104/53 100 Room Air 08/23/16 20:22 97.0 62 18 93/59 100 Room Air 08/23/16 16:07 97.3 68 19 105/68 100 Room Air Intake and Output 08/23/16 08/24/16 18:59 06:59 Intake Total 1515.0 ml 801.238 ml Output Total 5 ml 10 ml Balance 1510.0 ml 791.238 ml Intake Oral 1130 ml 480 ml IV Total 385.0 ml 321.238 ml Output Drainage Total 5 ml 10 ml # Voids 4 2 Laboratory Tests 08/24/16 05:55: White Blood Count 12.6H, Red Blood Count 4.67L, Hemoglobin 13.5L, Hematocrit 40.9L, Mean Corpuscular Volume 88, Mean Corpuscular Hemoglobin 28.8, Mean Corpuscular Hemoglobin Concent 32.9, Red Cell Distribution Width 12.8, Platelet Count 400, Mean Platelet Volume 5.6L, Neutrophils (%) (Auto) 77.6H, Lymphocytes (%) (Auto) 12.3L, Monocytes (%) (Auto) 9.2, Eosinophils (%) (Auto) 0.6, Basophils (%) (Auto) 0.4, Sodium Level 142, Potassium Level 4.1, Chloride Level 101, Carbon Dioxide Level 27, Anion Gap 14, Blood Urea Nitrogen 9, Creatinine 1.8H, Estimat Glomerular Filtration Rate 58.5, Glucose Level 91, Calcium Level 9.6 Height (Feet): 5 Height (Inches): 9.00 Weight (Pounds): 125 General Appearance: alert EENT: normal ENT inspection Neck: normal alignment Cardiovascular: normal peripheral pulses, normal rate, regular rhythm Respiratory/Chest: chest wall non-tender, lungs clear, normal breath sounds Abdomen: normal bowel sounds, non tender, soft Extremities: normal inspection Edema: no edema noted Arm (L), no edema noted Arm (R), no edema noted Leg (L), no edema noted Leg (R), no edema noted Pedal (L), no edema noted Pedal (R), no edema noted Generalized Neurologic: responsive, motor weakness Skin: normal pigmentation, warm/dry Objective l chest soft mass noted caudal to l nipple area VALENTIN SCHRADER Aug 24, 2016 13:24
[2016-08-24 16:23] VITALS: BP 104/56
--- NOTE | 2016-08-24 16:25 | Pulmonology Progress Note ---
Assessment/Plan Assessment/Plan ASSESSMENT sepsis L chest wall mass vs abscess possible empyema ( etiology -bacterial vs fungal vs TB ) PNA s/p US guided percutaneous catheter drainage placement 08/20 s/[address] CT guided ALICIA lung biopsy 08/22 PLAN OF CARE MS floor isolation IV abx ID follows s/ percutaneous drainage catheter placement, small output-15 ml serosanguineous drainage s/p biopsy ALICIA - biopsy negative for malignancy, GMS, PAS, AFB stains all negative biopsy c/w necrotizing granulomatous inflammation HIV test negative pain management TB testing pending AFB smear x 2 negative fluid and biopsy cx preliminary negative, gram stain unremarkable hepatitis panel negative fup with PPD Subjective Allergies: Coded Allergies: No Known Allergies (Unverified , 08/13/16) Subjective leukocytosis today, afebrile biopsy negative for malignancy denies chest pain, SOB, palpitations Objective Last 24 Hour Vital Signs Date Time Temp Pulse Resp B/P Pulse Ox O2 Delivery O2 Flow Rate FiO2 08/24/16 12:00 97.9 63 20 104/51 100 Room Air 08/24/16 08:00 98.0 66 20 105/53 100 Room Air 08/24/16 04:00 98.1 55 18 98/46 100 Room Air 08/24/16 00:00 97.9 55 18 104/53 100 Room Air 08/23/16 20:22 97.0 62 18 93/59 100 Room Air Intake and Output 08/23/16 08/24/16 19:00 07:00 Intake Total 1515.0 ml 828.738 ml Output Total 5 ml 10 ml Balance 1510.0 ml 818.738 ml Intake Oral 1130 ml 480 ml IV Total 385.0 ml 348.738 ml Output Drainage Total 5 ml 10 ml # Voids 4 2 General Appearance: no acute distress, cachetic HEENT: normocephalic, atraumatic, anicteric, mucous membranes moist, PERRL Respiratory/Chest: chest wall non-tender, lungs clear, normal breath sounds, no respiratory distress, no accessory muscle use, other - L chest percutaneous drainage catheter with serosanguinous drainage Cardiovascular: regular rhythm, no JVD Abdomen: normal bowel sounds, soft, non tender, non distended Genitourinary: normal external genitalia Extremities: no edema, pedal pulses normal 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, no motor/sensory deficits, alert, oriented x 3, responsive Musculoskeletal: normal muscle bulk Microbiology Date/Time Source Procedure Growth Status 08/22/16 01:30 Sputum Expectorated AFB Specimen Processing Tissue - Final Resulted 08/22/16 01:30 Sputum Expectorated Acid Fast Bacilli Smear - Final Resulted 08/22/16 01:30 Sputum Expectorated Acid Fast Bacilli Culture Pending Resulted 08/22/16 13:05 Lung Left Lower Lobe Gram Stain - Final Resulted 08/22/16 13:05 Lung Left Lower Lobe Surgical Biopsy Culture - Preliminary Resulted Laboratory Tests 08/24/16 05:55: White Blood Count 12.6H, Red Blood Count 4.67L, Hemoglobin 13.5L, Hematocrit 40.9L, Mean Corpuscular Volume 88, Mean Corpuscular Hemoglobin 28.8, Mean Corpuscular Hemoglobin Concent 32.9, Red Cell Distribution Width 12.8, Platelet Count 400, Mean Platelet Volume 5.6L, Neutrophils (%) (Auto) 77.6H, Lymphocytes (%) (Auto) 12.3L, Monocytes (%) (Auto) 9.2, Eosinophils (%) (Auto) 0.6, Basophils (%) (Auto) 0.4, Sodium Level 142, Potassium Level 4.1, Chloride Level 101, Carbon Dioxide Level 27, Anion Gap 14, Blood Urea Nitrogen 9, Creatinine 1.8H, Estimat Glomerular Filtration Rate 58.5, Glucose Level 91, Calcium Level 9.6 Current Medications Medications (Trade) Dose Ordered Sig/Patricia Route PRN Reason Start Time Stop Time Status Last Admin Dose Admin Acetaminophen (Tylenol) 650 mg Q4H PRN ORAL T>100.5 08/20/16 06:30 09/19/16 06:29 Al Hydroxide/Mg Hydroxide (Mylanta II) 30 ml Q6H PRN ORAL dyspepsia 08/20/16 06:30 09/19/16 06:29 08/23/16 23:19 Dextrose (Dextrose 50%) STAT PRN IV Hypoglycemia 08/20/16 06:30 09/19/16 06:29 Heparin Sodium (Porcine) (Heparin 5000 units/ml) 5,000 units EVERY 12 HOURS SUBQ 08/20/16 09:00 09/19/16 08:59 08/24/16 09:13 Lorazepam (Ativan 2mg/ml 1ml) 0.5 mg Q4H PRN IV For Anxiety 08/20/16 06:30 08/27/16 06:29 Morphine Sulfate (Morphine Sulfate) 1 mg Q4H PRN IVP PAIN 4-10 08/20/16 06:30 08/27/16 06:29 Ondansetron HCl (Zofran) 4 mg Q6H PRN IVP Nausea & Vomiting 08/20/16 06:30 09/19/16 06:29 08/23/16 21:46 Piperacillin Sod/ Tazobactam Sod 3.375 gm/Dextrose 110 ml @ 27.5 mls/hr EVERY 8 HOURS IVPB 08/20/16 14:00 08/25/16 13:59 08/24/16 14:03 Polyethylene Glycol (Miralax) 17 gm HSPRN PRN ORAL Constipation 08/20/16 21:00 09/19/16 20:59 Vancomycin HCl 1 ea 1 ea DAILY PRN MISC Per rx protocol 08/20/16 06:30 09/19/16 06:29 Vancomycin HCl/ Dextrose (Vancomycin/D5W) 275 ml @ 183.708 mls/hr Q8H IVPB 08/24/16 10:00 08/29/16 09:59 08/24/16 09:30 Zolpidem Tartrate (Ambien) 5 mg HSPRN PRN ORAL Insomnia 08/20/16 21:00 09/19/16 20:59 Dora Mitchell NP (Vanchtein) Aug 24, 2016 16:25
--- NOTE | 2016-08-24 17:09 | Infectious Diseases Prog Note ---
Assessment/Plan Problems: (1) Chest wall abscess Assessment & Plan: S/P I&D, fluid culture is pending , will continue vancomycin and zosyn empirically for now pending culture results (2) Empyema lung Assessment & Plan: due to bacterial VS fungal VS TB , had lung biopsy , await culture results and pathology . may need chest tube . (3) Sepsis Assessment & Plan: due to the above, on wide spectrum antibiotics coverage, await culture (4) Pneumonia Assessment & Plan: S/P lung biopsy, with culture is pending , continue wide spectrum antibiotics. repeated CXR showed small area of lucency at the previously left mid lower area, pulmonary is following . Subjective Constitutional: Reports: anorexia Respiratory: Reports: dry cough Gastrointestinal/Abdominal: Reports: nausea Allergies: Coded Allergies: No Known Allergies (Unverified , 08/13/16) All Systems: reviewed and negative except above Subjective he had lung biopsy , still has drainage in his left chest abscess. Objective Vital Signs Last 24 Hour Vital Signs Date Time Temp Pulse Resp B/P Pulse Ox O2 Delivery O2 Flow Rate FiO2 08/24/16 16:23 97.9 68 20 104/56 Room Air 08/24/16 12:00 97.9 63 20 104/51 100 Room Air 08/24/16 08:00 98.0 66 20 105/53 100 Room Air 08/24/16 04:00 98.1 55 18 98/46 100 Room Air 08/24/16 00:00 97.9 55 18 104/53 100 Room Air 08/23/16 20:22 97.0 62 18 93/59 100 Room Air Height (Feet): 5 Height (Inches): 9.00 Weight (Pounds): 125 General Appearance: WD/WN, no acute distress HEENT: normocephalic, atraumatic, anicteric, mucous membranes moist Respiratory/Chest: normal breath sounds, no respiratory distress, no accessory muscle use, decreased breath sounds, crackles/rales Cardiovascular: normal peripheral pulses, normal rate, regular rhythm, no gallop/murmur, no JVD Abdomen: normal bowel sounds, soft, non tender, no organomegaly, non distended , no mass, no scars Extremities: no cyanosis, no clubbing Skin: no rash, no lesions, no ulcers Microbiology Date/Time Source Procedure Growth Status 08/22/16 01:30 Sputum Expectorated AFB Specimen Processing Tissue - Final Resulted 08/22/16 01:30 Sputum Expectorated Acid Fast Bacilli Smear - Final Resulted 08/22/16 01:30 Sputum Expectorated Acid Fast Bacilli Culture Pending Resulted 08/22/16 13:05 Lung Left Lower Lobe Gram Stain - Final Resulted 08/22/16 13:05 Lung Left Lower Lobe Surgical Biopsy Culture - Preliminary Resulted Laboratory Tests Test 08/24/16 05:55 White Blood Count 12.6 K/UL (4.8-10.8) H Red Blood Count 4.67 M/UL (4.70-6.10) L Hemoglobin 13.5 G/DL (14.2-18.0) L Hematocrit 40.9 % (42.0-52.0) L Mean Corpuscular Volume 88 FL (80-99) Mean Corpuscular Hemoglobin 28.8 PG (27.0-31.0) Mean Corpuscular Hemoglobin Concent 32.9 G/DL (32.0-36.0) Red Cell Distribution Width 12.8 % (11.6-14.8) Platelet Count 400 K/UL (150-450) Mean Platelet Volume 5.6 FL (6.5-10.1) L Neutrophils (%) (Auto) 77.6 % (45.0-75.0) H Lymphocytes (%) (Auto) 12.3 % (20.0-45.0) L Monocytes (%) (Auto) 9.2 % (1.0-10.0) Eosinophils (%) (Auto) 0.6 % (0.0-3.0) Basophils (%) (Auto) 0.4 % (0.0-2.0) Sodium Level 142 mEQ/L (135-145) Potassium Level 4.1 mEQ/L (3.4-4.9) Chloride Level 101 mEQ/L (98-107) Carbon Dioxide Level 27 mEQ/L (20-30) Anion Gap 14 (5-15) Blood Urea Nitrogen 9 mg/dL (7-23) Creatinine 1.8 mg/dL (0.7-1.2) H Estimat Glomerular Filtration Rate 58.5 mL/min (>60) Glucose Level 91 mg/dL (74-106) Calcium Level 9.6 mg/dL (8.6-10.2) Current Medications Medications (Trade) Dose Ordered Sig/Patricia Route PRN Reason Start Time Stop Time Status Last Admin Dose Admin Acetaminophen (Tylenol) 650 mg Q4H PRN ORAL T>100.5 08/20/16 06:30 09/19/16 06:29 Al Hydroxide/Mg Hydroxide (Mylanta II) 30 ml Q6H PRN ORAL dyspepsia 08/20/16 06:30 09/19/16 06:29 08/23/16 23:19 Dextrose (Dextrose 50%) STAT PRN IV Hypoglycemia 08/20/16 06:30 09/19/16 06:29 Heparin Sodium (Porcine) (Heparin 5000 units/ml) 5,000 units EVERY 12 HOURS SUBQ 08/20/16 09:00 09/19/16 08:59 08/24/16 09:13 Lorazepam (Ativan 2mg/ml 1ml) 0.5 mg Q4H PRN IV For Anxiety 08/20/16 06:30 08/27/16 06:29 Morphine Sulfate (Morphine Sulfate) 1 mg Q4H PRN IVP PAIN 4-10 08/20/16 06:30 08/27/16 06:29 Ondansetron HCl (Zofran) 4 mg Q6H PRN IVP Nausea & Vomiting 08/20/16 06:30 09/19/16 06:29 08/24/16 16:16 Piperacillin Sod/ Tazobactam Sod/ Dextrose (Zosyn/D5W) 110 ml @ 27.5 mls/hr EVERY 8 HOURS IVPB 08/20/16 14:00 08/25/16 13:59 08/24/16 14:03 Polyethylene Glycol (Miralax) 17 gm HSPRN PRN ORAL Constipation 08/20/16 21:00 09/19/16 20:59 Vancomycin HCl 1 ea 1 ea DAILY PRN MISC Per rx protocol 08/20/16 06:30 09/19/16 06:29 Zolpidem Tartrate (Ambien) 5 mg HSPRN PRN ORAL Insomnia 08/20/16 21:00 09/19/16 20:59 Srikanth Costello M.D. Aug 24, 2016 17:09
[2016-08-24 20:00] VITALS: BP 106/58
[2016-08-24] MEDS: Mylanta II UD 30ml ORAL PRN (22:15)
[2016-08-24] MEDS: Cefepime HCl 1 GM in D5W 55 ML IVPB SCH (22:47)
[2016-08-25] VITALS: BP 105/55
[2016-08-25 04:00] VITALS: BP 103/68
[2016-08-25 07:12] LABS: BASOPHILS % (AUTO) 0.3 % (0.0-2.0); EOSINOPHILS % (AUTO) 0.1 % (0.0-3.0); LYMPHOCYTES % (AUTO) 6.8 % (20.0-45.0); MEAN CORPUSCULAR HEMOGLOBIN 28.7 PG (27.0-31.0); MEAN CORPUSCULAR HGB CONC 33.1 G/DL (32.0-36.0); MEAN CORPUSCULAR VOLUME 87 FL (80-99); MEAN PLATELET VOLUME 5.8 FL (6.5-10.1); MONOCYTES % (AUTO) 8.1 % (1.0-10.0); NEUTROPHILS % (AUTO) 84.7 % (45.0-75.0); PLATELET COUNT 403 K/UL (150-450); RED BLOOD COUNT 4.79 M/UL (4.70-6.10); RED CELL DISTRIBUTION WIDTH 12.9 % (11.6-14.8)
[2016-08-25 07:31] LABS: CALCIUM 9.7 mg/dL (8.6-10.2); CREATININE 2.5 mg/dL (0.7-1.2); GLOMERULAR FILTRATION RATE 40.1 mL/min (>60); POTASSIUM 4.2 mEQ/L (3.4-4.9)
[2016-08-25 08:00] VITALS: BP 110/61
--- NOTE | 2016-08-25 08:29 | General Progress Note ---
Assessment/Plan Problem List: (1) Mass of chest wall, left ICD Codes: R22.2 - Localized swelling, mass and lump, trunk SNOMED: 666857558 (2) Pneumonia ICD Codes: J18.9 - Pneumonia, unspecified organism SNOMED: 056182002 Status: stable, progressing, tolerating diet Assessment/Plan abx per id cbc bmp am dc if clear by id Subjective Constitutional: Reports: weakness Allergies: Coded Allergies: No Known Allergies (Unverified , 08/13/16) All Systems: reviewed and negative except above Subjective calm no complaints Objective Last 24 Hour Vital Signs Date Time Temp Pulse Resp B/P Pulse Ox O2 Delivery O2 Flow Rate FiO2 08/25/16 04:00 99.0 80 19 103/68 99 Room Air 08/25/16 00:00 97.9 72 20 105/55 94 Room Air 08/24/16 20:00 97.9 63 20 106/58 100 Room Air 08/24/16 16:23 97.9 68 20 104/56 Room Air 08/24/16 12:00 97.9 63 20 104/51 100 Room Air Intake and Output 08/24/16 08/25/16 19:00 07:00 Intake Total 357.500 ml 120 ml Output Total 10 ml 5 ml Balance 347.500 ml 115 ml Intake Oral 120 ml IV Total 357.500 ml Output Urine Total 0 ml Drainage Total 10 ml 5 ml # Voids 2 2 Laboratory Tests 08/25/16 06:35: White Blood Count 14.0H, Red Blood Count 4.79, Hemoglobin 13.7L, Hematocrit 41.5L, Mean Corpuscular Volume 87, Mean Corpuscular Hemoglobin 28.7, Mean Corpuscular Hemoglobin Concent 33.1, Red Cell Distribution Width 12.9, Platelet Count 403, Mean Platelet Volume 5.8L, Neutrophils (%) (Auto) 84.7H, Lymphocytes (%) (Auto) 6.8L, Monocytes (%) (Auto) 8.1, Eosinophils (%) (Auto) 0.1, Basophils (%) (Auto) 0.3, Sodium Level 141, Potassium Level 4.2, Chloride Level 99, Carbon Dioxide Level 27, Anion Gap 15, Blood Urea Nitrogen 14, Creatinine 2.5H, Estimat Glomerular Filtration Rate 40.1, Glucose Level 106, Calcium Level 9.7 Height (Feet): 5 Height (Inches): 9.00 Weight (Pounds): 125 General Appearance: alert EENT: normal ENT inspection Neck: normal alignment Cardiovascular: normal peripheral pulses, normal rate, regular rhythm Respiratory/Chest: chest wall non-tender, lungs clear, normal breath sounds Abdomen: normal bowel sounds, non tender, soft Extremities: normal inspection Edema: no edema noted Arm (L), no edema noted Arm (R), no edema noted Leg (L), no edema noted Leg (R), no edema noted Pedal (L), no edema noted Pedal (R), no edema noted Generalized Neurologic: responsive, motor weakness Skin: normal pigmentation, warm/dry VALENTIN SCHRADER Aug 25, 2016 08:28
[2016-08-25] MEDS: Cefepime HCl 1 GM in D5W 55 ML IVPB SCH ×2 (08:50→22:36)
[2016-08-25] MEDS: Heparin 5000 units/ml inj SUBQ SCH ×2 (08:57→22:45)
--- NOTE | 2016-08-25 10:51 | Pulmonology Progress Note ---
Assessment/Plan Assessment/Plan ASSESSMENT sepsis L chest wall mass vs abscess possible empyema PNA s/p US guided percutaneous catheter drainage placement 08/20 s/[address] guided ALICIA lung biopsy 08/22 acute renal failure cachexia, weight loss PLAN OF CARE MS floor isolation IV abx ID follows s/ percutaneous drainage catheter placement, small output-15 ml serosanguineous drainage s/p biopsy ALICIA - biopsy negative for malignancy, GMS, PAS, AFB stains all negative biopsy c/w necrotizing granulomatous inflammation HIV test negative pain management TB testing pending AFB smear x 2 negative fluid and biopsy cx preliminary negative, gram stain unremarkable hepatitis panel negative PPD -15 mm, [place] due to acute renal failure start IVF renal US acute renal failure likely drug induced , discussed with ID will stop vanco nephro eval as per PMD discretion dietary eval case discussed and evaluated by supervising physician Subjective Allergies: Coded Allergies: No Known Allergies (Unverified , 08/13/16) Subjective leukocytosis today with trend up , afebrile biopsy negative for malignancy denies chest pain, SOB, palpitations evidence of acute renal failure this am with creat of 2.5 feeling weak, no appetite Objective Last 24 Hour Vital Signs Date Time Temp Pulse Resp B/P Pulse Ox O2 Delivery O2 Flow Rate FiO2 08/25/16 08:00 97.9 70 20 110/61 100 Room Air 08/25/16 04:00 99.0 80 19 103/68 99 Room Air 08/25/16 00:00 97.9 72 20 105/55 94 Room Air 08/24/16 20:00 97.9 63 20 106/58 100 Room Air 08/24/16 16:23 97.9 68 20 104/56 Room Air 08/24/16 12:00 97.9 63 20 104/51 100 Room Air Intake and Output 08/24/16 08/25/16 19:00 07:00 Intake Total 357.500 ml 120 ml Output Total 10 ml 5 ml Balance 347.500 ml 115 ml Intake Oral 120 ml IV Total 357.500 ml Output Urine Total 0 ml Drainage Total 10 ml 5 ml # Voids 2 2 Objective General Appearance: no acute distress, cachetic HEENT: normocephalic, atraumatic, anicteric, mucous membranes moist, PERRL Respiratory/Chest: chest wall non-tender, lungs clear, normal breath sounds, no respiratory distress, no accessory muscle use, L chest percutaneous drainage catheter with serosanguinous drainage Cardiovascular: regular rhythm, no JVD Abdomen: normal bowel sounds, soft, non tender, non distended Genitourinary: normal external genitalia Extremities: no edema, pedal pulses normal 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, no motor/sensory deficits, alert, oriented x 3, responsive Musculoskeletal: normal muscle bulk Microbiology Date/Time Source Procedure Growth Status 08/22/16 13:05 Lung Left Lower Lobe Gram Stain - Final Resulted 08/22/16 13:05 Lung Left Lower Lobe Surgical Biopsy Culture - Preliminary NO GROWTH AFTER 72 HOURS Resulted Laboratory Tests 08/25/16 06:35: White Blood Count 14.0H, Red Blood Count 4.79, Hemoglobin 13.7L, Hematocrit 41.5L, Mean Corpuscular Volume 87, Mean Corpuscular Hemoglobin 28.7, Mean Corpuscular Hemoglobin Concent 33.1, Red Cell Distribution Width 12.9, Platelet Count 403, Mean Platelet Volume 5.8L, Neutrophils (%) (Auto) 84.7H, Lymphocytes (%) (Auto) 6.8L, Monocytes (%) (Auto) 8.1, Eosinophils (%) (Auto) 0.1, Basophils (%) (Auto) 0.3, Sodium Level 141, Potassium Level 4.2, Chloride Level 99, Carbon Dioxide Level 27, Anion Gap 15, Blood Urea Nitrogen 14, Creatinine 2.5H, Estimat Glomerular Filtration Rate 40.1, Glucose Level 106, Calcium Level 9.7 08/25/16 08:45: Random Vancomycin Level 16.3 Current Medications Medications (Trade) Dose Ordered Sig/Patricia Route PRN Reason Start Time Stop Time Status Last Admin Dose Admin Acetaminophen (Tylenol) 650 mg Q4H PRN ORAL T>100.5 08/20/16 06:30 09/19/16 06:29 Al Hydroxide/Mg Hydroxide (Mylanta II) 30 ml Q6H PRN ORAL dyspepsia 08/20/16 06:30 09/19/16 06:29 08/24/16 22:15 Cefepime HCl 1 gm/ Dextrose 55 ml @ 110 mls/hr Q12HR@1000,2200 IVPB 08/24/16 23:00 08/31/16 22:59 08/25/16 08:50 Dextrose (Dextrose 50%) STAT PRN IV Hypoglycemia 08/20/16 06:30 09/19/16 06:29 Heparin Sodium (Porcine) (Heparin 5000 units/ml) 5,000 units EVERY 12 HOURS SUBQ 08/20/16 09:00 09/19/16 08:59 08/25/16 08:57 Lorazepam (Ativan 2mg/ml 1ml) 0.5 mg Q4H PRN IV For Anxiety 08/20/16 06:30 08/27/16 06:29 Morphine Sulfate (Morphine Sulfate) 1 mg Q4H PRN IVP PAIN 4-10 08/20/16 06:30 08/27/16 06:29 Ondansetron HCl (Zofran) 4 mg Q6H PRN IVP Nausea & Vomiting 08/20/16 06:30 09/19/16 06:29 08/25/16 05:47 Polyethylene Glycol (Miralax) 17 gm HSPRN PRN ORAL Constipation 08/20/16 21:00 09/19/16 20:59 Vancomycin HCl 1 ea 1 ea DAILY PRN MISC Per rx protocol 08/20/16 06:30 09/19/16 06:29 Vancomycin HCl/ Dextrose (Vancomycin/D5W) 275 ml @ 183.708 mls/hr Q24H IVPB 08/25/16 12:00 08/30/16 11:59 Zolpidem Tartrate (Ambien) 5 mg HSPRN PRN ORAL Insomnia 08/20/16 21:00 09/19/16 20:59 Dora Mitchell NP (Vanchtein) Aug 25, 2016 10:51
[2016-08-25] MEDS ORDERED: Vancomycin 750mg/D5W 275ml IVPB SCH ×2 (12:00)
[2016-08-25 12:14] VITALS: BP 100/53
--- NOTE | 2016-08-25 15:44 | Infectious Diseases Prog Note ---
Assessment/Plan Problems: (1) Chest wall abscess Assessment & Plan: S/P I&D, fluid culture so far is negative , will D/C vancomycin since his creatinine is up , and start him on doxycycline , I switched his zosyn to cefepime since he developed nausea while infusion. (2) Empyema lung Assessment & Plan: due to bacterial VS fungal VS TB , had lung biopsy with pathology showed necrotizing granuloma but all stains were negative for infectious cause, needs to rule out Angel granulomatous , will send ANCA titer , he was evaluated by thoracic surgery today , no need for VATS (3) Sepsis Assessment & Plan: due to the above, on wide spectrum antibiotics coverage, await culture (4) Pneumonia Assessment & Plan: romain continue cefepime and start doxycycline empirically for now, had lung biopsy which showed necrotizing granuloma, fungal VS TB VS vascular disease such as Angel , continue wide spectrum antibiotics. repeated CXR showed small area of lucency at the previously left mid lower area, pulmonary is following . (5) ROMAN (acute kidney injury) Assessment & Plan: will stop vancomycin, start IVF for hydration and monitor renal function, avoid nephrotoxic meds Subjective Constitutional: Reports: anorexia Respiratory: Reports: dry cough Gastrointestinal/Abdominal: Reports: nausea Allergies: Coded Allergies: No Known Allergies (Unverified , 08/13/16) All Systems: reviewed and negative except above Subjective he had lung biopsy , still has drainage in his left chest abscess. Objective Vital Signs Last 24 Hour Vital Signs Date Time Temp Pulse Resp B/P Pulse Ox O2 Delivery O2 Flow Rate FiO2 08/25/16 12:14 97.5 66 18 100/53 95 Room Air 08/25/16 08:00 97.9 70 20 110/61 100 Room Air 08/25/16 04:00 99.0 80 19 103/68 99 Room Air 08/25/16 00:00 97.9 72 20 105/55 94 Room Air 08/24/16 20:00 97.9 63 20 106/58 100 Room Air 08/24/16 16:23 97.9 68 20 104/56 Room Air Height (Feet): 5 Height (Inches): 9.00 Weight (Pounds): 125 General Appearance: WD/WN, no acute distress HEENT: normocephalic, atraumatic, anicteric, mucous membranes moist Respiratory/Chest: normal breath sounds, no respiratory distress, no accessory muscle use, decreased breath sounds, crackles/rales Cardiovascular: normal peripheral pulses, normal rate, regular rhythm, no gallop/murmur, no JVD Abdomen: normal bowel sounds, soft, non tender, no organomegaly, non distended , no mass, no scars Extremities: no cyanosis, no clubbing Skin: no lesions, no ulcers Laboratory Tests Test 08/25/16 06:35 08/25/16 08:45 White Blood Count 14.0 K/UL (4.8-10.8) H Red Blood Count 4.79 M/UL (4.70-6.10) Hemoglobin 13.7 G/DL (14.2-18.0) L Hematocrit 41.5 % (42.0-52.0) L Mean Corpuscular Volume 87 FL (80-99) Mean Corpuscular Hemoglobin 28.7 PG (27.0-31.0) Mean Corpuscular Hemoglobin Concent 33.1 G/DL (32.0-36.0) Red Cell Distribution Width 12.9 % (11.6-14.8) Platelet Count 403 K/UL (150-450) Mean Platelet Volume 5.8 FL (6.5-10.1) L Neutrophils (%) (Auto) 84.7 % (45.0-75.0) H Lymphocytes (%) (Auto) 6.8 % (20.0-45.0) L Monocytes (%) (Auto) 8.1 % (1.0-10.0) Eosinophils (%) (Auto) 0.1 % (0.0-3.0) Basophils (%) (Auto) 0.3 % (0.0-2.0) Sodium Level 141 mEQ/L (135-145) Potassium Level 4.2 mEQ/L (3.4-4.9) Chloride Level 99 mEQ/L (98-107) Carbon Dioxide Level 27 mEQ/L (20-30) Anion Gap 15 (5-15) Blood Urea Nitrogen 14 mg/dL (7-23) Creatinine 2.5 mg/dL (0.7-1.2) H Estimat Glomerular Filtration Rate 40.1 mL/min (>60) Glucose Level 106 mg/dL (74-106) Calcium Level 9.7 mg/dL (8.6-10.2) Random Vancomycin Level 16.3 ug/mL Current Medications Medications (Trade) Dose Ordered Sig/Patricia Route PRN Reason Start Time Stop Time Status Last Admin Dose Admin Acetaminophen (Tylenol) 650 mg Q4H PRN ORAL T>100.5 08/20/16 06:30 09/19/16 06:29 Al Hydroxide/Mg Hydroxide (Mylanta II) 30 ml Q6H PRN ORAL dyspepsia 08/20/16 06:30 09/19/16 06:29 08/24/16 22:15 Cefepime HCl 1 gm/ Dextrose 55 ml @ 110 mls/hr Q12HR@1000,2200 IVPB 08/24/16 23:00 08/31/16 22:59 08/25/16 08:50 Dextrose STAT PRN IV Hypoglycemia 08/20/16 06:30 09/19/16 06:29 Heparin Sodium (Porcine) (Heparin 5000 units/ml) 5,000 units EVERY 12 HOURS SUBQ 08/20/16 09:00 09/19/16 08:59 08/25/16 08:57 Lorazepam (Ativan 2mg/ml 1ml) 0.5 mg Q4H PRN IV For Anxiety 08/20/16 06:30 08/27/16 06:29 Morphine Sulfate (Morphine Sulfate) 1 mg Q4H PRN IVP PAIN 4-10 08/20/16 06:30 08/27/16 06:29 Ondansetron HCl (Zofran) 4 mg Q6H PRN IVP Nausea & Vomiting 08/20/16 06:30 09/19/16 06:29 08/25/16 05:47 Polyethylene Glycol (Miralax) 17 gm HSPRN PRN ORAL Constipation 08/20/16 21:00 09/19/16 20:59 Sodium Chloride (0.45% NS 1000ml) 1,000 ml @ 100 mls/hr Q10H IV 08/25/16 11:00 09/24/16 10:59 08/25/16 11:18 Zolpidem Tartrate (Ambien) 5 mg HSPRN PRN ORAL Insomnia 08/20/16 21:00 09/19/16 20:59 Srikanth Costello M.D. Aug 25, 2016 15:44
[2016-08-25 16:00] VITALS: BP 110/55
--- NOTE | 2016-08-25 16:58 | Consultation ---
DATE OF CONSULTATION: 08/20/2016 CONSULTING PHYSICIAN: Joseph Arceo M.D. REFERRING PHYSICIAN: Rama Handley M.D. HISTORY OF PRESENT ILLNESS: The patient is a 20-year-old male, otherwise healthy, who presented to [facility] with left chest wall swelling associated with left upper lobe pneumonia. Workup including a chest CT scan demonstrated a left upper lobe infiltration with a possible intrathoracic empyema and Thoracic Surgery was then consulted for further evaluation. PAST MEDICAL HISTORY: None. PAST SURGICAL HISTORY: None. MEDICATIONS: Reviewed. ALLERGIES: The patient has no known drug allergies. FAMILY/SOCIAL HISTORY: The patient lives with his friend in [place]. He does not smoke, but he is an occasional marijuana user and denies any alcohol use. The family history is notable for the patient is an immigrant from [facility]. PHYSICAL EXAMINATION: VITAL SIGNS: He is noted to be afebrile. Vital signs are within normal limits. CARDIAC: Regular rate and rhythm. No gallops or murmur. RESPIRATIONS: Clear to auscultation bilaterally. ABDOMEN: Soft, nondistended, and nontender with normoactive bowel sounds. EXTREMITIES: No evidence of cyanosis, clubbing, or edema. LABORATORY DATA: Laboratory studies performed on 08/25/2016 showed WBC of 14, hemoglobin of 13, hematocrit of 41, and platelet count 403,000. Sodium is 141, potassium is 4.2, chloride is 99, bicarbonate is 25, BUN is 14, creatinine is 2.5, and glucose is 106. Pathology, a CT-guided biopsy of the left upper lobe infiltrative mass showed granulomatous inflammation with no evidence of malignancy. A chest CT scan performed on 08/22/2016, which showed an infiltrative mass in the inferior portion of the left upper lobe, contiguous to the chest wall. Intrathoracic abscess cannot be ruled out. ASSESSMENT AND PLAN: This is a 20-year-old male who presented to [facility] with a left upper lobe infiltration associated with possible intrathoracic empyema formation. The patient was evaluated at bedside. We reviewed his radiographic imaging studies and clinical database, I will wait for the results of his TB clearance. Furthermore, we will wait for the results of the culture studies prior to any potential surgical intervention. I want to thank you for referring this patient to my attention. If you have any questions in regards to this patient's clinical care, please do not hesitate to contact me. Calderon M.D. DR: PATRICIA JOB#: [id number] CC: DALTON
[2016-08-25 20:00] VITALS: BP_SYST 126; BP_SYST 99; BP_DIAS 66; BP_DIAS 83
[2016-08-25] MEDS: Doxycycline Hyclate 100 MG in D5W 110 ML IV SCH (22:35)
--- NOTE | 2016-08-25 23:59 | Nephrology Progress Note ---
Assessment/Plan Problem List: (1) ROMAN (acute kidney injury) (2) Mass of chest wall, left (3) Pneumonia (4) Sepsis Plan Agree with IVF. MOnitor UOP. Check renal us r.o hydro. will follow. thanks. Subjective Subjective on airborne precaution to r/o TB. other no new c/o. Objective Objective Last 24 Hour Vital Signs Date Time Temp Pulse Resp B/P Pulse Ox O2 Delivery O2 Flow Rate FiO2 08/25/16 20:00 97.5 77 18 99/66 96 Room Air 08/25/16 16:00 98.4 74 18 110/55 Room Air 100.0 08/25/16 12:14 97.5 66 18 100/53 95 Room Air 08/25/16 08:00 97.9 70 20 110/61 100 Room Air 08/25/16 04:00 99.0 80 19 103/68 99 Room Air 08/25/16 00:00 97.9 72 20 105/55 94 Room Air Intake and Output 08/24/16 08/25/16 19:00 07:00 Intake Total 357.500 ml 120 ml Output Total 10 ml 5 ml Balance 347.500 ml 115 ml Intake Oral 120 ml IV Total 357.500 ml Output Urine Total 0 ml Drainage Total 10 ml 5 ml # Voids 2 2 Laboratory Tests 08/25/16 06:35: White Blood Count 14.0H, Red Blood Count 4.79, Hemoglobin 13.7L, Hematocrit 41.5L, Mean Corpuscular Volume 87, Mean Corpuscular Hemoglobin 28.7, Mean Corpuscular Hemoglobin Concent 33.1, Red Cell Distribution Width 12.9, Platelet Count 403, Mean Platelet Volume 5.8L, Neutrophils (%) (Auto) 84.7H, Lymphocytes (%) (Auto) 6.8L, Monocytes (%) (Auto) 8.1, Eosinophils (%) (Auto) 0.1, Basophils (%) (Auto) 0.3, Sodium Level 141, Potassium Level 4.2, Chloride Level 99, Carbon Dioxide Level 27, Anion Gap 15, Blood Urea Nitrogen 14, Creatinine 2.5H, Estimat Glomerular Filtration Rate 40.1, Glucose Level 106, Calcium Level 9.7 08/25/16 08:45: Random Vancomycin Level 16.3 Height (Feet): 5 Height (Inches): 9.00 Weight (Pounds): 125 General Appearance: no apparent distress Cardiovascular: normal rate, regular rhythm Respiratory/Chest: decreased breath sounds Abdomen: non tender, soft Extremities: non-pitting Neurologic: alert ANGIE DING Aug 25, 2016 23:59
[2016-08-26 00:44] VITALS: BP 103/68
[2016-08-26 04:00] VITALS: BP 103/53
[2016-08-26 07:20] LABS: BASOPHILS % (AUTO) 0.5 % (0.0-2.0); EOSINOPHILS % (AUTO) 0.6 % (0.0-3.0); LYMPHOCYTES % (AUTO) 10.2 % (20.0-45.0); MEAN CORPUSCULAR HEMOGLOBIN 29.1 PG (27.0-31.0); MEAN CORPUSCULAR HGB CONC 33.1 G/DL (32.0-36.0); MEAN CORPUSCULAR VOLUME 88 FL (80-99); MEAN PLATELET VOLUME 5.9 FL (6.5-10.1); MONOCYTES % (AUTO) 8.6 % (1.0-10.0); NEUTROPHILS % (AUTO) 80.2 % (45.0-75.0); PLATELET COUNT 345 K/UL (150-450); RED BLOOD COUNT 4.48 M/UL (4.70-6.10); RED CELL DISTRIBUTION WIDTH 12.9 % (11.6-14.8); WHITE BLOOD COUNT 14.2 K/UL (4.8-10.8)
[2016-08-26 08:00] VITALS: BP 105/67
[2016-08-26 08:08] LABS: CALCIUM 9.2 mg/dL (8.6-10.2); CREATININE 2.4 mg/dL (0.7-1.2); GLOMERULAR FILTRATION RATE 42.1 mL/min (>60); POTASSIUM 4.5 mEQ/L (3.4-4.9)
--- NOTE | 2016-08-26 08:10 | General Progress Note ---
Assessment/Plan Problem List: (1) Mass of chest wall, left ICD Codes: R22.2 - Localized swelling, mass and lump, trunk SNOMED: 110608664 (2) Pneumonia ICD Codes: J18.9 - Pneumonia, unspecified organism SNOMED: 518935151 Status: stable, progressing, tolerating diet Assessment/Plan abx per id cbc bmp am dc if clear by id Subjective Constitutional: Reports: weakness Allergies: Coded Allergies: No Known Allergies (Unverified , 08/13/16) All Systems: reviewed and negative except above Subjective calm no complaints Objective Last 24 Hour Vital Signs Date Time Temp Pulse Resp B/P Pulse Ox O2 Delivery O2 Flow Rate FiO2 08/26/16 04:00 97.7 65 20 103/53 99 Room Air 08/26/16 01:09 98.8 08/26/16 00:44 100.0 74 21 103/68 100 Room Air 08/25/16 20:00 97.5 77 18 99/66 96 Room Air 08/25/16 16:00 98.4 74 18 110/55 Room Air 100.0 08/25/16 12:14 97.5 66 18 100/53 95 Room Air Intake and Output 08/25/16 08/26/16 19:00 07:00 Intake Total 1180 ml 1405 ml Output Total 3 ml 0 ml Balance 1177 ml 1405 ml Intake Oral 480 ml 240 ml IV Total 700 ml 1165 ml Output Urine Total 0 ml Other 3 ml 0 ml # Voids 2 3 Laboratory Tests 08/25/16 08:45: Random Vancomycin Level 16.3 08/26/16 06:00: White Blood Count 14.2H, Red Blood Count 4.48L, Hemoglobin 13.0L, Hematocrit 39.3L, Mean Corpuscular Volume 88, Mean Corpuscular Hemoglobin 29.1, Mean Corpuscular Hemoglobin Concent 33.1, Red Cell Distribution Width 12.9, Platelet Count 345, Mean Platelet Volume 5.9L, Neutrophils (%) (Auto) 80.2H, Lymphocytes (%) (Auto) 10.2L, Monocytes (%) (Auto) 8.6, Eosinophils (%) (Auto) 0.6, Basophils (%) (Auto) 0.5, Sodium Level [Pending], Potassium Level [Pending], Chloride Level [Pending], Carbon Dioxide Level [Pending], Blood Urea Nitrogen [ Pending], Creatinine [Pending], Estimat Glomerular Filtration Rate [Pending], Glucose Level [Pending], Calcium Level [Pending], Total Creatine Kinase [Pending ], Rheumatoid Factor Screen [Pending], Anti-Nuclear Antibody Screen [Pending], c -ANCA Titer [Pending], p-ANCA Titer [Pending] Height (Feet): 5 Height (Inches): 9.00 Weight (Pounds): 125 General Appearance: alert EENT: normal ENT inspection Neck: normal alignment Cardiovascular: normal peripheral pulses, normal rate, regular rhythm Respiratory/Chest: chest wall non-tender, lungs clear, normal breath sounds Abdomen: normal bowel sounds, non tender, soft Extremities: normal inspection Edema: no edema noted Arm (L), no edema noted Arm (R), no edema noted Leg (L), no edema noted Leg (R), no edema noted Pedal (L), no edema noted Pedal (R), no edema noted Generalized Neurologic: responsive, motor weakness Skin: normal pigmentation, warm/dry VALENTIN SCHRADER Aug 26, 2016 08:10
[2016-08-26] MEDS: Doxycycline Hyclate 100 MG in D5W 110 ML IV SCH ×2 (08:36→20:52)
[2016-08-26] MEDS: Heparin 5000 units/ml inj SUBQ SCH ×2 (08:42→21:04)
--- NOTE | 2016-08-26 09:17 | Pulmonology Progress Note ---
Assessment/Plan Assessment/Plan ASSESSMENT sepsis L chest wall mass vs abscess possible empyema PNA s/p US guided percutaneous catheter drainage placement 08/20 s/[address] CT guided ALICIA lung biopsy 08/22 acute renal failure cachexia, weight loss PLAN OF CARE MS floor isolation IV abx ID follows s/ percutaneous drainage catheter placement, small output-15 ml serosanguineous drainage s/p biopsy ALICIA - biopsy negative for malignancy, GMS, PAS, AFB stains all negative biopsy c/w necrotizing granulomatous inflammation cardiothoracic surgery eval noted and appreciated HIV test negative pain management TB testing pending AFB smear x 2 negative fluid and biopsy cx preliminary negative, gram stain unremarkable hepatitis panel negative PPD -15 mm, [place] due to acute renal failure 2/4 started IVF , no significant effects on creat acute renal failure likely drug induced , discussed with nephro 2/ and Vanco was stopped nephro eval noted workup for immunological/CVD in progress renal US dietary eval case discussed and evaluated by supervising physician Subjective Allergies: Coded Allergies: No Known Allergies (Unverified , 08/13/16) Subjective leukocytosis , low grade fever at night, currently afebrile biopsy negative for malignancy denies chest pain, SOB, palpitations evidence of acute renal failure this am with creat of 2.4 feeling weak, no appetite cachectic, lost weight recently nonintention, stated after becoming vegan Objective Last 24 Hour Vital Signs Date Time Temp Pulse Resp B/P Pulse Ox O2 Delivery O2 Flow Rate FiO2 08/26/16 04:00 97.7 65 20 103/53 99 Room Air 08/26/16 01:09 98.8 08/26/16 00:44 100.0 74 21 103/68 100 Room Air 08/25/16 20:00 97.5 77 18 99/66 96 Room Air 08/25/16 16:00 98.4 74 18 110/55 Room Air 100.0 08/25/16 12:14 97.5 66 18 100/53 95 Room Air Intake and Output 08/25/16 08/26/16 19:00 07:00 Intake Total 1180 ml 1405 ml Output Total 3 ml 0 ml Balance 1177 ml 1405 ml Intake Oral 480 ml 240 ml IV Total 700 ml 1165 ml Output Urine Total 0 ml Other 3 ml 0 ml # Voids 2 3 Objective General Appearance: no acute distress, cachetic HEENT: normocephalic, atraumatic, anicteric, mucous membranes moist, PERRL Respiratory/Chest: chest wall non-tender, lungs clear, normal breath sounds, no respiratory distress, no accessory muscle use, L chest percutaneous drainage catheter with serosanguinous drainage Cardiovascular: regular rhythm, no JVD Abdomen: normal bowel sounds, soft, non tender, non distended Genitourinary: normal external genitalia Extremities: no edema, pedal pulses normal Neurologic/Psychiatric: manager lean II-XII grossly normal, no motor/sensory deficits, alert, oriented x 3, responsive Musculoskeletal: normal muscle bulk Laboratory Tests 08/26/16 06:00: White Blood Count 14.2H, Red Blood Count 4.48L, Hemoglobin 13.0L, Hematocrit 39.3L, Mean Corpuscular Volume 88, Mean Corpuscular Hemoglobin 29.1, Mean Corpuscular Hemoglobin Concent 33.1, Red Cell Distribution Width 12.9, Platelet Count 345, Mean Platelet Volume 5.9L, Neutrophils (%) (Auto) 80.2H, Lymphocytes (%) (Auto) 10.2L, Monocytes (%) (Auto) 8.6, Eosinophils (%) (Auto) 0.6, Basophils (%) (Auto) 0.5, Sodium Level 138, Potassium Level 4.5, Chloride Level 97L, Carbon Dioxide Level 25, Anion Gap 16H, Blood Urea Nitrogen 15, Creatinine 2.4H, Estimat Glomerular Filtration Rate 42.1, Glucose Level 96, Calcium Level 9.2, Total Creatine Kinase 15L, Rheumatoid Factor Screen [Pending], Anti- Nuclear Antibody Screen [Pending], c-ANCA Titer [Pending], p-ANCA Titer [Pending ] Current Medications Medications (Trade) Dose Ordered Sig/Patricia Route PRN Reason Start Time Stop Time Status Last Admin Dose Admin Acetaminophen (Tylenol) 650 mg Q4H PRN ORAL T>100.5 08/20/16 06:30 09/19/16 06:29 08/26/16 00:10 Al Hydroxide/Mg Hydroxide (Mylanta II) 30 ml Q6H PRN ORAL dyspepsia 08/20/16 06:30 09/19/16 06:29 08/24/16 22:15 Cefepime HCl 1 gm/ Dextrose 55 ml @ 110 mls/hr Q12HR@1000,2200 IVPB 08/24/16 23:00 08/31/16 22:59 08/25/16 22:36 Dextrose STAT PRN IV Hypoglycemia 08/20/16 06:30 09/19/16 06:29 Doxycycline Hyclate/Dextrose (Vibramycin/D5W) 110 ml @ 110 mls/hr Q12HR IV 08/25/16 17:00 09/01/16 16:59 08/26/16 08:36 Heparin Sodium (Porcine) (Heparin 5000 units/ml) 5,000 units EVERY 12 HOURS SUBQ 08/20/16 09:00 09/19/16 08:59 08/26/16 08:42 Lorazepam (Ativan 2mg/ml 1ml) 0.5 mg Q4H PRN IV For Anxiety 08/20/16 06:30 08/27/16 06:29 Morphine Sulfate (Morphine Sulfate) 1 mg Q4H PRN IVP PAIN 4-10 08/20/16 06:30 08/27/16 06:29 Ondansetron HCl (Zofran) 4 mg Q6H PRN IVP Nausea & Vomiting 08/20/16 06:30 09/19/16 06:29 08/25/16 05:47 Polyethylene Glycol (Miralax) 17 gm HSPRN PRN ORAL Constipation 08/20/16 21:00 09/19/16 20:59 Sodium Chloride 1,000 ml @ 100 mls/hr Q10H IV 08/25/16 11:00 09/24/16 10:59 08/26/16 06:29 Zolpidem Tartrate (Ambien) 5 mg HSPRN PRN ORAL Insomnia 08/20/16 21:00 09/19/16 20:59 Stephen Porterlizette)Dora NP Aug 26, 2016 09:17
[2016-08-26] MEDS ORDERED: Tubing IV Secondary IV ONE (09:41)
[2016-08-26] MEDS ORDERED: 1/2 NS 1000ml IV ONE (09:41)
[2016-08-26] MEDS: Cefepime HCl 1 GM in D5W 55 ML IVPB SCH (10:22)
--- NOTE | 2016-08-26 11:14 | Nephrology Progress Note ---
Assessment/Plan Problem List: (1) ROMAN (acute kidney injury) (2) Pneumonia (3) Mass of chest wall, left (4) Sepsis Plan f/u AfB cultures. cont IVF. MOnitor Cr closely. Monitor UOP. Subjective Subjective afebrile. Cr slowly trending down. good UOP. Objective Objective Last 24 Hour Vital Signs Date Time Temp Pulse Resp B/P Pulse Ox O2 Delivery O2 Flow Rate FiO2 08/26/16 08:00 97.5 77 20 105/67 17 Room Air 08/26/16 04:00 97.7 65 20 103/53 99 Room Air 08/26/16 01:09 98.8 08/26/16 00:44 100.0 74 21 103/68 100 Room Air 08/25/16 20:00 97.5 77 18 99/66 96 Room Air 08/25/16 16:00 98.4 74 18 110/55 Room Air 100.0 08/25/16 12:14 97.5 66 18 100/53 95 Room Air Intake and Output 08/25/16 08/26/16 19:00 07:00 Intake Total 1180 ml 1505 ml Output Total 3 ml 0 ml Balance 1177 ml 1505 ml Intake Oral 480 ml 240 ml IV Total 700 ml 1265 ml Output Urine Total 0 ml Other 3 ml 0 ml # Voids 2 3 Laboratory Tests 08/26/16 06:00: White Blood Count 14.2H, Red Blood Count 4.48L, Hemoglobin 13.0L, Hematocrit 39.3L, Mean Corpuscular Volume 88, Mean Corpuscular Hemoglobin 29.1, Mean Corpuscular Hemoglobin Concent 33.1, Red Cell Distribution Width 12.9, Platelet Count 345, Mean Platelet Volume 5.9L, Neutrophils (%) (Auto) 80.2H, Lymphocytes (%) (Auto) 10.2L, Monocytes (%) (Auto) 8.6, Eosinophils (%) (Auto) 0.6, Basophils (%) (Auto) 0.5, Sodium Level 138, Potassium Level 4.5, Chloride Level 97L, Carbon Dioxide Level 25, Anion Gap 16H, Blood Urea Nitrogen 15, Creatinine 2.4H, Estimat Glomerular Filtration Rate 42.1, Glucose Level 96, Calcium Level 9.2, Total Creatine Kinase 15L, Rheumatoid Factor Screen [Pending], Anti- Nuclear Antibody Screen [Pending], c-ANCA Titer [Pending], p-ANCA Titer [Pending ] Height (Feet): 5 Height (Inches): 9.00 Weight (Pounds): 125 General Appearance: no apparent distress Cardiovascular: normal rate, regular rhythm Respiratory/Chest: lungs clear Abdomen: non tender, soft Extremities: non-pitting Neurologic: alert ANGIE DING Aug 26, 2016 11:14
[2016-08-26 12:02] VITALS: BP 99/63
[2016-08-26 16:04] VITALS: BP 106/61
--- NOTE | 2016-08-26 19:22 | Infectious Diseases Prog Note ---
Assessment/Plan Problems: (1) Chest wall abscess Assessment & Plan: S/P I&D, fluid culture so far is negative , will D/C vancomycin since his creatinine is up , and start him on doxycycline , I switched his zosyn to cefepime since he developed nausea while infusion. (2) Empyema lung Assessment & Plan: due to bacterial VS fungal VS TB , had lung biopsy with pathology showed necrotizing granuloma but all stains were negative for infectious cause, needs to rule out Angel granulomatous , will send ANCA titer , he was evaluated by thoracic surgery today , no need for VATS (3) Sepsis Assessment & Plan: due to the above, on wide spectrum antibiotics coverage, await culture (4) Pneumonia Assessment & Plan: on cefepime and doxycycline empirically , had lung biopsy which showed necrotizing granuloma, fungal VS TB VS vascular disease such as Angel , continue wide spectrum antibiotics. repeated CXR showed small area of lucency at the previously left mid lower area, pulmonary is following . (5) ROMAN (acute kidney injury) Assessment & Plan: off vancomycin, continue IVF for hydration and monitor renal function, avoid nephrotoxic meds Subjective Constitutional: Reports: anorexia Allergies: Coded Allergies: No Known Allergies (Unverified , 08/13/16) All Systems: reviewed and negative except above Subjective he was doing better after switching his antibiotics regimen, no nausea or vomiting, still has drainage in his left chest abscess. Objective Vital Signs Last 24 Hour Vital Signs Date Time Temp Pulse Resp B/P Pulse Ox O2 Delivery O2 Flow Rate FiO2 08/26/16 16:04 97.2 70 18 106/61 100 Room Air 08/26/16 12:02 97.7 67 20 99/63 18 Room Air 08/26/16 08:00 97.5 77 20 105/67 17 Room Air 08/26/16 04:00 97.7 65 20 103/53 99 Room Air 08/26/16 01:09 98.8 08/26/16 00:44 100.0 74 21 103/68 100 Room Air 08/25/16 20:00 97.5 77 18 99/66 96 Room Air Height (Feet): 5 Height (Inches): 9.00 Weight (Pounds): 125 General Appearance: WD/WN, no acute distress HEENT: normocephalic, atraumatic, anicteric, mucous membranes moist, PERRL Respiratory/Chest: lungs clear, normal breath sounds, no respiratory distress, no accessory muscle use Cardiovascular: normal peripheral pulses, normal rate, regular rhythm, no gallop/murmur, no JVD Abdomen: normal bowel sounds, soft, non tender, no organomegaly, non distended , no mass, no scars Extremities: no cyanosis, no clubbing Laboratory Tests Test 08/26/16 06:00 White Blood Count 14.2 K/UL (4.8-10.8) H Red Blood Count 4.48 M/UL (4.70-6.10) L Hemoglobin 13.0 G/DL (14.2-18.0) L Hematocrit 39.3 % (42.0-52.0) L Mean Corpuscular Volume 88 FL (80-99) Mean Corpuscular Hemoglobin 29.1 PG (27.0-31.0) Mean Corpuscular Hemoglobin Concent 33.1 G/DL (32.0-36.0) Red Cell Distribution Width 12.9 % (11.6-14.8) Platelet Count 345 K/UL (150-450) Mean Platelet Volume 5.9 FL (6.5-10.1) L Neutrophils (%) (Auto) 80.2 % (45.0-75.0) H Lymphocytes (%) (Auto) 10.2 % (20.0-45.0) L Monocytes (%) (Auto) 8.6 % (1.0-10.0) Eosinophils (%) (Auto) 0.6 % (0.0-3.0) Basophils (%) (Auto) 0.5 % (0.0-2.0) Sodium Level 138 mEQ/L (135-145) Potassium Level 4.5 mEQ/L (3.4-4.9) Chloride Level 97 mEQ/L (98-107) L Carbon Dioxide Level 25 mEQ/L (20-30) Anion Gap 16 (5-15) H Blood Urea Nitrogen 15 mg/dL (7-23) Creatinine 2.4 mg/dL (0.7-1.2) H Estimat Glomerular Filtration Rate 42.1 mL/min (>60) Glucose Level 96 mg/dL (74-106) Calcium Level 9.2 mg/dL (8.6-10.2) Total Creatine Kinase 15 U/L (38-174) L Rheumatoid Factor Screen Pending Anti-Nuclear Antibody Screen Pending c-ANCA Titer Pending p-ANCA Titer Pending Current Medications Medications (Trade) Dose Ordered Sig/Patricia Route PRN Reason Start Time Stop Time Status Last Admin Dose Admin Acetaminophen (Tylenol) 650 mg Q4H PRN ORAL T>100.5 08/20/16 06:30 09/19/16 06:29 08/26/16 00:10 Al Hydroxide/Mg Hydroxide (Mylanta II) 30 ml Q6H PRN ORAL dyspepsia 08/20/16 06:30 09/19/16 06:29 08/24/16 22:15 Cefepime HCl/ Dextrose (Maxipime/D5W) 110 ml @ 220 mls/hr Q24H IV 08/26/16 23:00 09/02/16 22:59 Dextrose STAT PRN IV Hypoglycemia 08/20/16 06:30 09/19/16 06:29 Doxycycline Hyclate 100 mg/ Dextrose 110 ml @ 110 mls/hr Q12HR IV 08/25/16 17:00 09/01/16 16:59 08/26/16 08:36 Heparin Sodium (Porcine) (Heparin 5000 units/ml) 5,000 units EVERY 12 HOURS SUBQ 08/20/16 09:00 09/19/16 08:59 08/26/16 08:42 Lorazepam (Ativan 2mg/ml 1ml) 0.5 mg Q4H PRN IV For Anxiety 08/20/16 06:30 08/27/16 06:29 Morphine Sulfate (Morphine Sulfate) 1 mg Q4H PRN IVP PAIN 4-10 08/20/16 06:30 08/27/16 06:29 Ondansetron HCl (Zofran) 4 mg Q6H PRN IVP Nausea & Vomiting 08/20/16 06:30 09/19/16 06:29 08/25/16 05:47 Polyethylene Glycol (Miralax) 17 gm HSPRN PRN ORAL Constipation 08/20/16 21:00 09/19/16 20:59 Sodium Chloride 1,000 ml @ 100 mls/hr Q10H IV 08/25/16 11:00 09/24/16 10:59 08/26/16 17:08 Zolpidem Tartrate (Ambien) 5 mg HSPRN PRN ORAL Insomnia 08/20/16 21:00 09/19/16 20:59 Srikanth Costello M.D. Aug 26, 2016 19:22
[2016-08-26 20:25] VITALS: BP 110/65
[2016-08-26] MEDS: Mylanta II UD 30ml ORAL PRN (21:18)
[2016-08-26] MEDS: Cefepime 2gm/D5W 110ml IV SCH ×2 (22:38)
[2016-08-27] VITALS: BP 112/57
[2016-08-27 04:00] VITALS: BP 103/47
[2016-08-27 07:11] LABS: BASOPHILS % (AUTO) 0.5 % (0.0-2.0); EOSINOPHILS % (AUTO) 1.7 % (0.0-3.0); LYMPHOCYTES % (AUTO) 13.7 % (20.0-45.0); MEAN CORPUSCULAR HEMOGLOBIN 28.7 PG (27.0-31.0); MEAN CORPUSCULAR HGB CONC 33.1 G/DL (32.0-36.0); MEAN CORPUSCULAR VOLUME 87 FL (80-99); MONOCYTES % (AUTO) 8.8 % (1.0-10.0); NEUTROPHILS % (AUTO) 75.3 % (45.0-75.0); PLATELET COUNT 363 K/UL (150-450); RED BLOOD COUNT 4.32 M/UL (4.70-6.10); RED CELL DISTRIBUTION WIDTH 12.7 % (11.6-14.8); WHITE BLOOD COUNT 10.8 K/UL (4.8-10.8)
[2016-08-27 07:25] LABS: CALCIUM 8.9 mg/dL (8.6-10.2); CREATININE 2.1 mg/dL (0.7-1.2); GLOMERULAR FILTRATION RATE 49.1 mL/min (>60); POTASSIUM 4.2 mEQ/L (3.4-4.9)
[2016-08-27 08:00] VITALS: BP 94/52
[2016-08-27] MEDS: Doxycycline Hyclate 100 MG in D5W 110 ML IV SCH ×2 (08:23→20:23)
[2016-08-27] MEDS: Heparin 5000 units/ml inj SUBQ SCH ×2 (08:27→20:25)
[2016-08-27 08:47] LABS: MTB DETECTION NAA Negative (Negative); MTB PROCESSING Concentration (.)
[2016-08-27 08:47] LABS: BLASTOMYCES AB - ID Negative (Neg:<1:1)
[2016-08-27 10:17] LABS: RHEUMATOID FACTOR SCREEN 13.6 IU/mL (0.0-13.9)
[2016-08-27 12:00] VITALS: BP 107/58
--- NOTE | 2016-08-27 14:45 | Pulmonology Progress Note ---
Assessment/Plan Problems: (1) Mass of chest wall, left (2) Pneumonia Assessment/Plan wbc is normal biopsy showed necrotizing granuloma will review tht pathololy reports with the pathologist. Pt might need 4 anti -TB Subjective ROS Limited/Unobtainable: No Interval Events: feeling better Constitutional: Reports: no symptoms Allergies: Coded Allergies: No Known Allergies (Unverified , 08/13/16) Objective Last 24 Hour Vital Signs Date Time Temp Pulse Resp B/P Pulse Ox O2 Delivery O2 Flow Rate FiO2 08/27/16 12:00 97.2 63 20 107/58 100 Room Air 08/27/16 08:00 97.0 74 20 94/52 100 Room Air 08/27/16 04:00 97.0 67 19 103/47 98 Room Air 08/27/16 00:00 99.0 77 20 112/57 97 Room Air 08/26/16 20:25 97.5 72 19 110/65 98 Room Air 08/26/16 16:04 97.2 70 18 106/61 100 Room Air Intake and Output 08/26/16 08/27/16 19:00 07:00 Intake Total 1200 ml 1150 ml Output Total 0 ml 450 ml Balance 1200 ml 700 ml Intake Oral 300 ml 240 ml IV Total 900 ml 910 ml Output Urine Total 450 ml Other 0 ml # Voids 3 5 General Appearance: WD/WN HEENT: normocephalic Respiratory/Chest: chest wall non-tender, normal breath sounds Abdomen: normal bowel sounds, soft, non tender Microbiology Date/Time Source Procedure Growth Status 08/25/16 06:00 Sputum AFB Specimen Processing Tissue - Final Resulted 08/25/16 06:00 Sputum Acid Fast Bacilli Smear - Final Resulted 08/25/16 06:00 Sputum Acid Fast Bacilli Culture Pending Resulted Laboratory Tests 08/27/16 05:10: White Blood Count 10.8, Red Blood Count 4.32L, Hemoglobin 12.4L, Hematocrit 37.5L, Mean Corpuscular Volume 87, Mean Corpuscular Hemoglobin 28.7, Mean Corpuscular Hemoglobin Concent 33.1, Red Cell Distribution Width 12.7, Platelet Count 363, Mean Platelet Volume 6.0L, Neutrophils (%) (Auto) 75.3H, Lymphocytes (%) (Auto) 13.7L, Monocytes (%) (Auto) 8.8, Eosinophils (%) (Auto) 1.7, Basophils (%) (Auto) 0.5, Sodium Level 140, Potassium Level 4.2, Chloride Level 100, Carbon Dioxide Level 24, Anion Gap 16H, Blood Urea Nitrogen 14, Creatinine 2.1H, Estimat Glomerular Filtration Rate 49.1, Glucose Level 92, Calcium Level 8.9 08/27/16 09:05: TB Test (T-Spot) [Pending], TB Test Nil Control (T-Spot) [Pending], TB Test Panel A (T-Spot) [Pending], TB Test Panel B (T-Spot) [Pending], TB Test Positive Control (T-Spot) [Pending] Current Medications Medications (Trade) Dose Ordered Sig/Patricia Route PRN Reason Start Time Stop Time Status Last Admin Dose Admin Acetaminophen (Tylenol) 650 mg Q4H PRN ORAL T>100.5 08/20/16 06:30 09/19/16 06:29 08/26/16 00:10 Al Hydroxide/Mg Hydroxide (Mylanta II) 30 ml Q6H PRN ORAL dyspepsia 08/20/16 06:30 09/19/16 06:29 08/26/16 21:18 Cefepime HCl/ Dextrose (Maxipime/D5W) 110 ml @ 220 mls/hr Q24H IV 08/26/16 23:00 09/02/16 22:59 08/26/16 22:38 Dextrose STAT PRN IV Hypoglycemia 08/20/16 06:30 09/19/16 06:29 Doxycycline Hyclate 100 mg/ Dextrose 110 ml @ 110 mls/hr Q12HR IV 08/25/16 17:00 09/01/16 16:59 08/27/16 08:23 Heparin Sodium (Porcine) (Heparin 5000 units/ml) 5,000 units EVERY 12 HOURS SUBQ 08/20/16 09:00 09/19/16 08:59 08/27/16 08:27 Ondansetron HCl (Zofran) 4 mg Q6H PRN IVP Nausea & Vomiting 08/20/16 06:30 09/19/16 06:29 08/25/16 05:47 Polyethylene Glycol (Miralax) 17 gm HSPRN PRN ORAL Constipation 08/20/16 21:00 09/19/16 20:59 Sodium Chloride 1,000 ml @ 100 mls/hr Q10H IV 08/25/16 11:00 09/24/16 10:59 08/27/16 12:08 Zolpidem Tartrate (Ambien) 5 mg HSPRN PRN ORAL Insomnia 08/20/16 21:00 09/19/16 20:59 JANETH CORREIA Aug 27, 2016 14:45
--- NOTE | 2016-08-27 15:53 | General Progress Note ---
Assessment/Plan Problem List: (1) Mass of chest wall, left ICD Codes: R22.2 - Localized swelling, mass and lump, trunk SNOMED: 396233436 (2) Pneumonia ICD Codes: J18.9 - Pneumonia, unspecified organism SNOMED: 907123827 Status: stable, progressing, tolerating diet Assessment/Plan abx per id cbc bmp am dc if clear by id Subjective Constitutional: Reports: weakness Allergies: Coded Allergies: No Known Allergies (Unverified , 08/13/16) All Systems: reviewed and negative except above Subjective calm no complaints Objective Last 24 Hour Vital Signs Date Time Temp Pulse Resp B/P Pulse Ox O2 Delivery O2 Flow Rate FiO2 08/27/16 12:00 97.2 63 20 107/58 100 Room Air 08/27/16 08:00 97.0 74 20 94/52 100 Room Air 08/27/16 04:00 97.0 67 19 103/47 98 Room Air 08/27/16 00:00 99.0 77 20 112/57 97 Room Air 08/26/16 20:25 97.5 72 19 110/65 98 Room Air 08/26/16 16:04 97.2 70 18 106/61 100 Room Air Intake and Output 08/26/16 08/27/16 19:00 07:00 Intake Total 1200 ml 1150 ml Output Total 0 ml 450 ml Balance 1200 ml 700 ml Intake Oral 300 ml 240 ml IV Total 900 ml 910 ml Output Urine Total 450 ml Other 0 ml # Voids 3 5 Laboratory Tests 08/27/16 05:10: White Blood Count 10.8, Red Blood Count 4.32L, Hemoglobin 12.4L, Hematocrit 37.5L, Mean Corpuscular Volume 87, Mean Corpuscular Hemoglobin 28.7, Mean Corpuscular Hemoglobin Concent 33.1, Red Cell Distribution Width 12.7, Platelet Count 363, Mean Platelet Volume 6.0L, Neutrophils (%) (Auto) 75.3H, Lymphocytes (%) (Auto) 13.7L, Monocytes (%) (Auto) 8.8, Eosinophils (%) (Auto) 1.7, Basophils (%) (Auto) 0.5, Sodium Level 140, Potassium Level 4.2, Chloride Level 100, Carbon Dioxide Level 24, Anion Gap 16H, Blood Urea Nitrogen 14, Creatinine 2.1H, Estimat Glomerular Filtration Rate 49.1, Glucose Level 92, Calcium Level 8.9 08/27/16 09:05: TB Test (T-Spot) [Pending], TB Test Nil Control (T-Spot) [Pending], TB Test Panel A (T-Spot) [Pending], TB Test Panel B (T-Spot) [Pending], TB Test Positive Control (T-Spot) [Pending] Height (Feet): 5 Height (Inches): 9.00 Weight (Pounds): 125 General Appearance: alert EENT: PERRL/EOMI Neck: normal alignment Cardiovascular: normal peripheral pulses, normal rate, regular rhythm Respiratory/Chest: chest wall non-tender, lungs clear, normal breath sounds Abdomen: normal bowel sounds, non tender, soft Extremities: normal inspection Edema: no edema noted Arm (L), no edema noted Arm (R), no edema noted Leg (L), no edema noted Leg (R), no edema noted Pedal (L), no edema noted Pedal (R), no edema noted Generalized Neurologic: responsive, motor weakness Objective drain in left chest VALENTIN SCHRADER Aug 27, 2016 15:53
[2016-08-27] MEDS ORDERED: Tubing IV Secondary IV ONE (15:55)
[2016-08-27 16:05] VITALS: BP 91/52
--- NOTE | 2016-08-27 17:20 | Infectious Diseases Prog Note ---
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 sputum for AFB x 3 are negative so far . pulmonary is following . (5) ROMAN (acute kidney injury) Assessment & Plan: off vancomycin, continue IVF for hydration and monitor renal function, avoid nephrotoxic meds Subjective Constitutional: Denies: anorexia, chills, drenching sweats, fatigue, fever, no symptoms, other HEENT: Denies: congestion, coryza, dysphagia, hearing change, no symptoms, other, visual change Respiratory: Denies: dry cough, no symptoms, other, productive cough, shortness of breath Cardiovascular: Denies: chest pain, dyspnea on exertion, no symptoms, other, palpitations Gastrointestinal/Abdominal: Denies: bloating, blood in stool, constipation, diarrhea, nausea, no symptoms, other, vomiting Genitourinary: Denies: dysuria, frequency, hematuria, no symptoms, nocturia, other Neurologic: Denies: confusion, headache, no symptoms, numbness, other, weakness Psychiatric: Denies: anxiety, depression, no symptoms, other Skin: Denies: no symptoms, other, rash, ulcer Endocrine: Denies: feels cold, feels warm, no symptoms, other Allergies: Coded Allergies: No Known Allergies (Unverified , 08/13/16) Subjective he was doing much better after switching his antibiotics regimen, no nausea or vomiting, still has minimal drainage from his left chest abscess. Objective Vital Signs Last 24 Hour Vital Signs Date Time Temp Pulse Resp B/P Pulse Ox O2 Delivery O2 Flow Rate FiO2 08/27/16 16:05 96.3 57 19 91/52 97 Room Air 2/6/17 12:00 97.2 63 20 107/58 100 Room Air 08/27/16 08:00 97.0 74 20 94/52 100 Room Air 08/27/16 04:00 97.0 67 19 103/47 98 Room Air 08/27/16 00:00 99.0 77 20 112/57 97 Room Air 08/26/16 20:25 97.5 72 19 110/65 98 Room Air Height (Feet): 5 Height (Inches): 9.00 Weight (Pounds): 125 General Appearance: WD/WN, no acute distress HEENT: normocephalic, atraumatic, mucous membranes moist, PERRL Respiratory/Chest: normal breath sounds, no respiratory distress, no accessory muscle use, decreased breath sounds, crackles/rales Cardiovascular: normal peripheral pulses, normal rate, regular rhythm, no gallop/murmur, no JVD Abdomen: normal bowel sounds, soft, non tender, no organomegaly, non distended , no mass, no scars Skin: no rash Microbiology Date/Time Source Procedure Growth Status 08/25/16 06:00 Sputum AFB Specimen Processing Tissue - Final Resulted 08/25/16 06:00 Sputum Acid Fast Bacilli Smear - Final Resulted 08/25/16 06:00 Sputum Acid Fast Bacilli Culture Pending Resulted Laboratory Tests Test 08/27/16 05:10 08/27/16 09:05 White Blood Count 10.8 K/UL (4.8-10.8) Red Blood Count 4.32 M/UL (4.70-6.10) L Hemoglobin 12.4 G/DL (14.2-18.0) L Hematocrit 37.5 % (42.0-52.0) L Mean Corpuscular Volume 87 FL (80-99) Mean Corpuscular Hemoglobin 28.7 PG (27.0-31.0) Mean Corpuscular Hemoglobin Concent 33.1 G/DL (32.0-36.0) Red Cell Distribution Width 12.7 % (11.6-14.8) Platelet Count 363 K/UL (150-450) Mean Platelet Volume 6.0 FL (6.5-10.1) L Neutrophils (%) (Auto) 75.3 % (45.0-75.0) H Lymphocytes (%) (Auto) 13.7 % (20.0-45.0) L Monocytes (%) (Auto) 8.8 % (1.0-10.0) Eosinophils (%) (Auto) 1.7 % (0.0-3.0) Basophils (%) (Auto) 0.5 % (0.0-2.0) Sodium Level 140 mEQ/L (135-145) Potassium Level 4.2 mEQ/L (3.4-4.9) Chloride Level 100 mEQ/L (98-107) Carbon Dioxide Level 24 mEQ/L (20-30) Anion Gap 16 (5-15) H Blood Urea Nitrogen 14 mg/dL (7-23) Creatinine 2.1 mg/dL (0.7-1.2) H Estimat Glomerular Filtration Rate 49.1 mL/min (>60) Glucose Level 92 mg/dL (74-106) Calcium Level 8.9 mg/dL (8.6-10.2) TB Test (T-Spot) Pending TB Test Nil Control (T-Spot) Pending TB Test Panel A (T-Spot) Pending TB Test Panel B (T-Spot) Pending TB Test Positive Control (T-Spot) Pending Current Medications Medications (Trade) Dose Ordered Sig/Patricia Route PRN Reason Start Time Stop Time Status Last Admin Dose Admin Acetaminophen (Tylenol) 650 mg Q4H PRN ORAL T>100.5 08/20/16 06:30 09/19/16 06:29 08/26/16 00:10 Al Hydroxide/Mg Hydroxide (Mylanta II) 30 ml Q6H PRN ORAL dyspepsia 08/20/16 06:30 09/19/16 06:29 08/26/16 21:18 Cefepime HCl/ Dextrose (Maxipime/D5W) 110 ml @ 220 mls/hr Q24H IV 08/26/16 23:00 09/02/16 22:59 08/26/16 22:38 Dextrose STAT PRN IV Hypoglycemia 08/20/16 06:30 09/19/16 06:29 Doxycycline Hyclate 100 mg/ Dextrose 110 ml @ 110 mls/hr Q12HR IV 08/25/16 17:00 09/01/16 16:59 08/27/16 08:23 Heparin Sodium (Porcine) (Heparin 5000 units/ml) 5,000 units EVERY 12 HOURS SUBQ 08/20/16 09:00 09/19/16 08:59 08/27/16 08:27 Ondansetron HCl (Zofran) 4 mg Q6H PRN IVP Nausea & Vomiting 08/20/16 06:30 09/19/16 06:29 08/25/16 05:47 Polyethylene Glycol (Miralax) 17 gm HSPRN PRN ORAL Constipation 08/20/16 21:00 09/19/16 20:59 Sodium Chloride 1,000 ml @ 100 mls/hr Q10H IV 08/25/16 11:00 09/24/16 10:59 08/27/16 12:08 Zolpidem Tartrate (Ambien) 5 mg HSPRN PRN ORAL Insomnia 08/20/16 21:00 09/19/16 20:59 Srikanth Costello M.D. Aug 27, 2016 17:19
--- NOTE | 2016-08-27 17:49 | Nephrology Progress Note ---
Assessment/Plan Problem List: (1) Lipoma of anterior chest wall (2) Empyema lung (3) Sepsis (4) Chest wall abscess (5) Pneumonia (6) ROMAN (acute kidney injury) Plan Awaiting AFB result Monitor Creatinine Continue IVF ABX per ID Surg F/U Pulmo f/u Monitor I&O Avoid nephrotoxic agents am labs Subjective Constitutional: Denies: chills, diaphoresis, fever, malaise, no symptoms, other , weakness HEENT: Denies: blurred vision, double vision, ear discharge, ear pain, eye pain , mouth pain, mouth swelling, no symptoms, nose congestion, nose pain, other, tearing, throat pain, throat swelling Genitourinary: Denies: burning, discharge, flank pain, frequency, hematuria, incontinence, no symptoms, other, pain, urgency Neurologic/Psychiatric: Denies: anxiety, depressed, emotional problems, headache, no symptoms, numbness, other, paresthesia, pre-existing deficit, seizure, tingling, tremors, weakness Subjective Sitting by the bed, having dinner, dinners any discomfort, family at bedside Objective Objective Last 24 Hour Vital Signs Date Time Temp Pulse Resp B/P Pulse Ox O2 Delivery O2 Flow Rate FiO2 08/27/16 16:05 96.3 57 19 91/52 97 Room Air 08/27/16 12:00 97.2 63 20 107/58 100 Room Air 08/27/16 08:00 97.0 74 20 94/52 100 Room Air 08/27/16 04:00 97.0 67 19 103/47 98 Room Air 08/27/16 00:00 99.0 77 20 112/57 97 Room Air 08/26/16 20:25 97.5 72 19 110/65 98 Room Air Intake and Output 08/26/16 08/27/16 19:00 07:00 Intake Total 1200 ml 1150 ml Output Total 0 ml 450 ml Balance 1200 ml 700 ml Intake Oral 300 ml 240 ml IV Total 900 ml 910 ml Output Urine Total 450 ml Other 0 ml # Voids 3 5 Laboratory Tests 08/27/16 05:10: White Blood Count 10.8, Red Blood Count 4.32L, Hemoglobin 12.4L, Hematocrit 37.5L, Mean Corpuscular Volume 87, Mean Corpuscular Hemoglobin 28.7, Mean Corpuscular Hemoglobin Concent 33.1, Red Cell Distribution Width 12.7, Platelet Count 363, Mean Platelet Volume 6.0L, Neutrophils (%) (Auto) 75.3H, Lymphocytes (%) (Auto) 13.7L, Monocytes (%) (Auto) 8.8, Eosinophils (%) (Auto) 1.7, Basophils (%) (Auto) 0.5, Sodium Level 140, Potassium Level 4.2, Chloride Level 100, Carbon Dioxide Level 24, Anion Gap 16H, Blood Urea Nitrogen 14, Creatinine 2.1H, Estimat Glomerular Filtration Rate 49.1, Glucose Level 92, Calcium Level 8.9 08/27/16 09:05: TB Test (T-Spot) [Pending], TB Test Nil Control (T-Spot) [Pending], TB Test Panel A (T-Spot) [Pending], TB Test Panel B (T-Spot) [Pending], TB Test Positive Control (T-Spot) [Pending] Height (Feet): 5 Height (Inches): 9.00 Weight (Pounds): 125 General Appearance: alert EENT: normal ENT inspection Neck: non-tender, normal alignment, supple Cardiovascular: normal rate, regular rhythm, no JVD Respiratory/Chest: normal breath sounds, no respiratory distress Abdomen: soft, no organomegaly, no mass Extremities: non-tender, normal inspection, no calf tenderness Neurologic: alert, oriented x 3, responsive, normal mood/affect Zeynep Presley N.P. Aug 27, 2016 17:49
[2016-08-27 20:20] VITALS: BP 100/60
[2016-08-27] MEDS: Cefepime 2gm/D5W 110ml IV SCH ×2 (22:07)
[2016-08-28] VITALS: BP 107/59
[2016-08-28 04:00] VITALS: BP 102/56
[2016-08-28 07:03] LABS: BASOPHILS % (AUTO) 0.6 % (0.0-2.0); EOSINOPHILS % (AUTO) 2.8 % (0.0-3.0); LYMPHOCYTES % (AUTO) 13.5 % (20.0-45.0); MEAN CORPUSCULAR HEMOGLOBIN 28.8 PG (27.0-31.0); MEAN CORPUSCULAR HGB CONC 33.1 G/DL (32.0-36.0); MEAN CORPUSCULAR VOLUME 87 FL (80-99); MEAN PLATELET VOLUME 6.2 FL (6.5-10.1); MONOCYTES % (AUTO) 9.2 % (1.0-10.0); NEUTROPHILS % (AUTO) 73.8 % (45.0-75.0); PLATELET COUNT 338 K/UL (150-450); RED BLOOD COUNT 4.34 M/UL (4.70-6.10); RED CELL DISTRIBUTION WIDTH 12.5 % (11.6-14.8); WHITE BLOOD COUNT 9.5 K/UL (4.8-10.8)
[2016-08-28 07:17] LABS: ANION GAP 14 (5-15); CALCIUM 9.2 mg/dL (8.6-10.2); CARBON DIOXIDE 22 mEQ/L (20-30); CHLORIDE 103 mEQ/L (98-107); CREATININE 1.7 mg/dL (0.7-1.2); GLOMERULAR FILTRATION RATE > 60 mL/min (>60); HEMOLYSIS 1; POTASSIUM 4.1 mEQ/L (3.4-4.9); SODIUM 139 mEQ/L (135-145)
[2016-08-28] MEDS: Heparin 5000 units/ml inj SUBQ SCH ×2 (07:56→20:19)
[2016-08-28 08:00] VITALS: BP_SYST 109; BP_SYST 147; BP_DIAS 51; BP_DIAS 70
[2016-08-28] MEDS: Doxycycline Hyclate 100 MG in D5W 110 ML IV SCH ×2 (08:01→20:19)
--- NOTE | 2016-08-28 11:01 | Nephrology Progress Note ---
Assessment/Plan Problem List: (1) ROMAN (acute kidney injury) (2) Pneumonia (3) Mass of chest wall, left (4) Sepsis Plan f/u AFB cultures. smear neg. f/u pulm rec. Cr slowly trending down. cont IVF for now. will monitor labs. good UOP. Subjective Subjective no new c/o. Objective Objective Last 24 Hour Vital Signs Date Time Temp Pulse Resp B/P Pulse Ox O2 Delivery O2 Flow Rate FiO2 08/28/16 08:00 98.1 62 19 109/51 100 Room Air 08/28/16 04:00 97.3 68 18 102/56 100 Room Air 08/28/16 00:00 97.0 63 18 107/59 99 Room Air 08/27/16 20:20 97.2 60 18 100/60 98 Room Air 08/27/16 16:05 96.3 57 19 91/52 97 Room Air 08/27/16 12:00 97.2 63 20 107/58 100 Room Air Intake and Output 08/27/16 08/28/16 19:00 07:00 Intake Total 800 ml 1360 ml Output Total 0 ml 0 ml Balance 800 ml 1360 ml Intake Oral 240 ml IV Total 800 ml 1120 ml Other 0 ml 0 ml # Voids 1 3 Laboratory Tests 08/28/16 05:05: White Blood Count 9.5, Red Blood Count 4.34L, Hemoglobin 12.5L, Hematocrit 37.7L , Mean Corpuscular Volume 87, Mean Corpuscular Hemoglobin 28.8, Mean Corpuscular Hemoglobin Concent 33.1, Red Cell Distribution Width 12.5, Platelet Count 338, Mean Platelet Volume 6.2L, Neutrophils (%) (Auto) 73.8, Lymphocytes ( %) (Auto) 13.5L, Monocytes (%) (Auto) 9.2, Eosinophils (%) (Auto) 2.8, Basophils (%) (Auto) 0.6, Sodium Level 139, Potassium Level 4.1, Chloride Level 103, Carbon Dioxide Level 22, Anion Gap 14, Blood Urea Nitrogen 15, Creatinine 1.7H, Estimat Glomerular Filtration Rate > 60, Glucose Level 91, Calcium Level 9.2 Height (Feet): 5 Height (Inches): 9.00 Weight (Pounds): 125 General Appearance: no apparent distress Cardiovascular: normal rate, regular rhythm Respiratory/Chest: lungs clear Abdomen: non tender, soft DAI ROSALES Aug 28, 2016 11:01
[2016-08-28 12:17] VITALS: BP 110/53
--- NOTE | 2016-08-28 12:40 | Diagnostic Imaging Report ---
Indication: Acute renal failure Technique: Grayscale and duplex images of the kidneys, retroperitoneum, and bladder were obtained. Comparison:None Findings: Right kidney measures 13.1 cm in length. Left kidney measures 13.6 cm in length. Both kidneys demonstrate borderline increased echogenicity. No hydronephrosis. No focal abnormality. Normal inferior vena cava. Bladder is normal. Impression: Borderline increased renal echogenicity, may indicate medical renal disease. Correlate with clinical findings. Negative for hydronephrosis
--- NOTE | 2016-08-28 13:06 | General Progress Note ---
Assessment/Plan Problem List: (1) Mass of chest wall, left ICD Codes: R22.2 - Localized swelling, mass and lump, trunk SNOMED: 236809242 (2) Pneumonia ICD Codes: J18.9 - Pneumonia, unspecified organism SNOMED: 214774440 Status: stable, progressing, tolerating diet Assessment/Plan abx per id dc plan Subjective Constitutional: Reports: weakness Allergies: Coded Allergies: No Known Allergies (Unverified , 08/13/16) All Systems: reviewed and negative except above Subjective calm no complaints Objective Last 24 Hour Vital Signs Date Time Temp Pulse Resp B/P Pulse Ox O2 Delivery O2 Flow Rate FiO2 08/28/16 12:17 97.4 69 20 110/53 100 Room Air 08/28/16 08:00 98.1 62 19 109/51 100 Room Air 08/28/16 04:00 97.3 68 18 102/56 100 Room Air 08/28/16 00:00 97.0 63 18 107/59 99 Room Air 08/27/16 20:20 97.2 60 18 100/60 98 Room Air 08/27/16 16:05 96.3 57 19 91/52 97 Room Air Intake and Output 08/27/16 08/28/16 19:00 07:00 Intake Total 800 ml 1360 ml Output Total 0 ml 0 ml Balance 800 ml 1360 ml Intake Oral 240 ml IV Total 800 ml 1120 ml Other 0 ml 0 ml # Voids 1 3 Laboratory Tests 08/28/16 05:05: White Blood Count 9.5, Red Blood Count 4.34L, Hemoglobin 12.5L, Hematocrit 37.7L , Mean Corpuscular Volume 87, Mean Corpuscular Hemoglobin 28.8, Mean Corpuscular Hemoglobin Concent 33.1, Red Cell Distribution Width 12.5, Platelet Count 338, Mean Platelet Volume 6.2L, Neutrophils (%) (Auto) 73.8, Lymphocytes ( %) (Auto) 13.5L, Monocytes (%) (Auto) 9.2, Eosinophils (%) (Auto) 2.8, Basophils (%) (Auto) 0.6, Sodium Level 139, Potassium Level 4.1, Chloride Level 103, Carbon Dioxide Level 22, Anion Gap 14, Blood Urea Nitrogen 15, Creatinine 1.7H, Estimat Glomerular Filtration Rate > 60, Glucose Level 91, Calcium Level 9.2 Height (Feet): 5 Height (Inches): 9.00 Weight (Pounds): 125 General Appearance: alert EENT: normal ENT inspection Neck: normal alignment Cardiovascular: normal peripheral pulses, normal rate, regular rhythm Respiratory/Chest: chest wall non-tender, lungs clear, decreased breath sounds Abdomen: normal bowel sounds, non tender, soft Extremities: normal inspection Edema: no edema noted Arm (L), no edema noted Arm (R), no edema noted Leg (L), no edema noted Leg (R), no edema noted Pedal (L), no edema noted Pedal (R), no edema noted Generalized Neurologic: responsive, motor weakness Skin: normal pigmentation, warm/dry Objective drain in left chest VALENTIN SCHRADER Aug 28, 2016 13:06
[2016-08-28 16:00] VITALS: BP 108/45
--- NOTE | 2016-08-28 17:03 | Infectious Diseases Prog Note ---
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 sputum for AFB x 3 are negative so far . pulmonary is following . (5) ROMAN (acute kidney injury) Assessment & Plan: off vancomycin, continue IVF for hydration and monitor renal function, avoid nephrotoxic meds Subjective Constitutional: Denies: anorexia, chills, drenching sweats, fatigue, fever, no symptoms, other HEENT: Denies: congestion, coryza, dysphagia, hearing change, no symptoms, other, visual change Respiratory: Denies: dry cough, no symptoms, other, productive cough, shortness of breath Cardiovascular: Denies: chest pain, dyspnea on exertion, no symptoms, other, palpitations Gastrointestinal/Abdominal: Denies: bloating, blood in stool, constipation, diarrhea, nausea, no symptoms, other, vomiting Genitourinary: Denies: dysuria, frequency, hematuria, no symptoms, nocturia, other Neurologic: Denies: confusion, headache, no symptoms, numbness, other, weakness Psychiatric: Denies: anxiety, depression, no symptoms, other Skin: Denies: no symptoms, other, rash, ulcer Allergies: Coded Allergies: No Known Allergies (Unverified , 08/13/16) Subjective he was doing much better after switching his antibiotics regimen, no nausea or vomiting, still has minimal drainage from his left chest abscess. Objective Vital Signs Last 24 Hour Vital Signs Date Time Temp Pulse Resp B/P Pulse Ox O2 Delivery O2 Flow Rate FiO2 08/28/16 12:17 97.4 69 20 110/53 100 Room Air 08/28/16 08:00 98.1 62 19 109/51 100 Room Air 08/28/16 04:00 97.3 68 18 102/56 100 Room Air 08/28/16 00:00 97.0 63 18 107/59 99 Room Air 08/27/16 20:20 97.2 60 18 100/60 98 Room Air Height (Feet): 5 Height (Inches): 9.00 Weight (Pounds): 125 General Appearance: WD/WN, no acute distress HEENT: normocephalic, atraumatic, anicteric, mucous membranes moist Respiratory/Chest: chest wall non-tender, lungs clear, normal breath sounds, no respiratory distress, no accessory muscle use Cardiovascular: normal peripheral pulses, normal rate, regular rhythm, no gallop/murmur, no JVD, other - left chest wall drainage Abdomen: normal bowel sounds, soft, non tender, no organomegaly, non distended , no mass, no scars Extremities: no cyanosis, no clubbing Skin: no rash, no lesions, no ulcers Laboratory Tests Test 08/28/16 05:05 White Blood Count 9.5 K/UL (4.8-10.8) Red Blood Count 4.34 M/UL (4.70-6.10) L Hemoglobin 12.5 G/DL (14.2-18.0) L Hematocrit 37.7 % (42.0-52.0) L Mean Corpuscular Volume 87 FL (80-99) Mean Corpuscular Hemoglobin 28.8 PG (27.0-31.0) Mean Corpuscular Hemoglobin Concent 33.1 G/DL (32.0-36.0) Red Cell Distribution Width 12.5 % (11.6-14.8) Platelet Count 338 K/UL (150-450) Mean Platelet Volume 6.2 FL (6.5-10.1) L Neutrophils (%) (Auto) 73.8 % (45.0-75.0) Lymphocytes (%) (Auto) 13.5 % (20.0-45.0) L Monocytes (%) (Auto) 9.2 % (1.0-10.0) Eosinophils (%) (Auto) 2.8 % (0.0-3.0) Basophils (%) (Auto) 0.6 % (0.0-2.0) Sodium Level 139 mEQ/L (135-145) Potassium Level 4.1 mEQ/L (3.4-4.9) Chloride Level 103 mEQ/L (98-107) Carbon Dioxide Level 22 mEQ/L (20-30) Anion Gap 14 (5-15) Blood Urea Nitrogen 15 mg/dL (7-23) Creatinine 1.7 mg/dL (0.7-1.2) H Estimat Glomerular Filtration Rate > 60 mL/min (>60) Glucose Level 91 mg/dL (74-106) Calcium Level 9.2 mg/dL (8.6-10.2) Current Medications Medications (Trade) Dose Ordered Sig/Patricia Route PRN Reason Start Time Stop Time Status Last Admin Dose Admin Acetaminophen (Tylenol) 650 mg Q4H PRN ORAL T>100.5 08/20/16 06:30 09/19/16 06:29 08/26/16 00:10 Al Hydroxide/Mg Hydroxide (Mylanta II) 30 ml Q6H PRN ORAL dyspepsia 08/20/16 06:30 09/19/16 06:29 08/26/16 21:18 Cefepime HCl/ Dextrose (Maxipime/D5W) 110 ml @ 220 mls/hr Q24H IV 08/26/16 23:00 09/02/16 22:59 08/27/16 22:07 Dextrose STAT PRN IV Hypoglycemia 08/20/16 06:30 09/19/16 06:29 Doxycycline Hyclate 100 mg/ Dextrose 110 ml @ 110 mls/hr Q12HR IV 08/25/16 17:00 09/01/16 16:59 08/28/16 08:01 Heparin Sodium (Porcine) (Heparin 5000 units/ml) 5,000 units EVERY 12 HOURS SUBQ 08/20/16 09:00 09/19/16 08:59 08/27/16 08:27 Ondansetron HCl (Zofran) 4 mg Q6H PRN IVP Nausea & Vomiting 08/20/16 06:30 09/19/16 06:29 08/27/16 21:57 Polyethylene Glycol (Miralax) 17 gm HSPRN PRN ORAL Constipation 08/20/16 21:00 09/19/16 20:59 Sodium Chloride 1,000 ml @ 100 mls/hr Q10H IV 08/25/16 11:00 09/24/16 10:59 2/7/17 07:56 Zolpidem Tartrate (Ambien) 5 mg HSPRN PRN ORAL Insomnia 08/20/16 21:00 09/19/16 20:59 Srikanth Costello M.D. Aug 28, 2016 17:03
[2016-08-28 20:00] VITALS: BP 102/56
[2016-08-28] MEDS: Cefepime 2gm/D5W 110ml IV SCH ×2 (22:27)
[2016-08-29] VITALS: BP 113/44
[2016-08-29 04:00] VITALS: BP 118/48
[2016-08-29 08:00] VITALS: BP 101/41
[2016-08-29] MEDS: Doxycycline Hyclate 100 MG in D5W 110 ML IV SCH (08:50)
[2016-08-29] MEDS: Heparin 5000 units/ml inj SUBQ SCH ×2 (08:50→20:10)
[2016-08-29 09:36] LABS: HISTOPLASMA MYCELIAL ID AB Negative (Negative)
--- NOTE | 2016-08-29 11:16 | Nephrology Progress Note ---
Assessment/Plan Problem List: (1) Lipoma of anterior chest wall (2) Empyema lung (3) Sepsis (4) Chest wall abscess (5) Pneumonia (6) ROMAN (acute kidney injury) Plan Awaiting AFB result Monitor Creatinine - improved Continue IVF ABX per ID Surg F/U Pulmo f/u Monitor I&O Avoid nephrotoxic agents am labs Subjective Constitutional: Denies: chills, diaphoresis, fever, malaise, no symptoms, other , weakness HEENT: Denies: blurred vision, double vision, ear discharge, ear pain, eye pain , mouth pain, mouth swelling, no symptoms, nose congestion, nose pain, other, tearing, throat pain, throat swelling Genitourinary: Denies: burning, discharge, flank pain, frequency, hematuria, incontinence, no symptoms, other, pain, urgency Neurologic/Psychiatric: Denies: anxiety, depressed, emotional problems, headache, no symptoms, numbness, other, paresthesia, pre-existing deficit, seizure, tingling, tremors, weakness Subjective Sitting by the bed, dinners any discomfort, concerned about the AFB result taking a while Objective Objective Last 24 Hour Vital Signs Date Time Temp Pulse Resp B/P Pulse Ox O2 Delivery O2 Flow Rate FiO2 08/29/16 08:00 97.9 66 18 101/41 100 Room Air 08/29/16 04:00 98.2 69 18 118/48 99 Room Air 08/29/16 00:00 97.7 72 18 113/44 99 Room Air 08/28/16 20:00 98.2 66 19 102/56 Room Air 08/28/16 16:00 97.7 58 17 108/45 100 Room Air 08/28/16 12:17 97.4 69 20 110/53 100 Room Air Intake and Output 08/28/16 08/29/16 19:00 07:00 Intake Total 1170 ml 1860 ml Output Total 0 ml 5 ml Balance 1170 ml 1855 ml Intake Oral 70 ml 540 ml IV Total 1100 ml 1320 ml Drainage Total 0 ml Other 0 ml 5 ml # Voids 6 7 Height (Feet): 5 Height (Inches): 9.00 Weight (Pounds): 125 General Appearance: no apparent distress EENT: normal ENT inspection Neck: normal alignment, supple, normal inspection Cardiovascular: normal rate, regular rhythm, no JVD Respiratory/Chest: normal breath sounds, no respiratory distress Abdomen: non tender, soft, no organomegaly Extremities: normal range of motion, non-tender, normal inspection, no calf tenderness Neurologic: alert, oriented x 3, responsive, normal mood/affect Zeynep Presley N.P. Aug 29, 2016 11:16
[2016-08-29 12:00] VITALS: BP 101/48
--- NOTE | 2016-08-29 14:14 | General Progress Note ---
Assessment/Plan Problem List: (1) Mass of chest wall, left ICD Codes: R22.2 - Localized swelling, mass and lump, trunk SNOMED: 229170636 (2) Pneumonia ICD Codes: J18.9 - Pneumonia, unspecified organism SNOMED: 998559279 Status: stable, progressing, tolerating diet Assessment/Plan abx per id cbc bmp am dc plan Subjective Constitutional: Reports: weakness Allergies: Coded Allergies: No Known Allergies (Unverified , 08/13/16) All Systems: reviewed and negative except above Subjective calm no complaints Objective Last 24 Hour Vital Signs Date Time Temp Pulse Resp B/P Pulse Ox O2 Delivery O2 Flow Rate FiO2 08/29/16 12:00 97.7 74 20 101/48 100 Room Air 08/29/16 08:00 97.9 66 18 101/41 100 Room Air 08/29/16 04:00 98.2 69 18 118/48 99 Room Air 08/29/16 00:00 97.7 72 18 113/44 99 Room Air 08/28/16 20:00 98.2 66 19 102/56 Room Air 08/28/16 16:00 97.7 58 17 108/45 100 Room Air Intake and Output 08/28/16 08/29/16 19:00 07:00 Intake Total 1170 ml 1860 ml Output Total 0 ml 5 ml Balance 1170 ml 1855 ml Intake Oral 70 ml 540 ml IV Total 1100 ml 1320 ml Drainage Total 0 ml Other 0 ml 5 ml # Voids 6 7 Height (Feet): 5 Height (Inches): 9.00 Weight (Pounds): 125 General Appearance: lethargic EENT: normal ENT inspection Neck: normal alignment Cardiovascular: normal peripheral pulses, normal rate, regular rhythm Respiratory/Chest: chest wall non-tender, lungs clear, normal breath sounds Abdomen: normal bowel sounds, non tender, soft Extremities: normal inspection Edema: no edema noted Arm (L), no edema noted Arm (R), no edema noted Leg (L), no edema noted Leg (R), no edema noted Pedal (L), no edema noted Pedal (R), no edema noted Generalized Neurologic: responsive, motor weakness Skin: normal pigmentation, warm/dry Objective drain in left chest VALENTIN SCHRADER Aug 29, 2016 14:14
[2016-08-29 16:00] VITALS: BP 111/54
[2016-08-29 16:14] LABS: NIL (NEG) CONTROL SPOT COUNT 0 (0-9); PANEL A SPOT COUNT 8; PANEL B SPOT COUNT 4; T SPOT TB POSITIVE
[2016-08-29 16:15] LABS: POSITIVE CONTROL SPOT COUNT > 20
--- NOTE | 2016-08-29 17:46 | Infectious Diseases Prog Note ---
Assessment/Plan Problems: (1) Chest wall abscess Assessment & Plan: S/P I&D, fluid culture so far is negative for any bacterial growth , showed some clinical improvement on doxycycline , and cefepime, serology is negative for blastomycosis and cryptococcus, but T spot test is positive which is suggestive of TB infection, since no alternative diagnosis to explain it, will start four drugs regimen for TB. (2) Empyema lung Assessment & Plan: suspect TB related , had lung biopsy with pathology showed necrotizing granuloma suggestive of TB , not Angel granulomatous , since his ANCA titer was negative , will start four drugs regimen for TB. (3) Sepsis Assessment & Plan: due to the above, on wide spectrum antibiotics coverage, await culture (4) Pneumonia Assessment & Plan: suspect pulmonary TB, had lung biopsy which showed necrotizing granuloma, suggesting TB too . sputum for AFB x 3 are negative so far and culture is pending. will start four drugs regimen for TB treatment , and stop current antibiotics .pulmonary is following . (5) ROMAN (acute kidney injury) Assessment & Plan: off vancomycin, continue IVF for hydration and monitor renal function, avoid nephrotoxic meds Subjective Constitutional: Reports: anorexia Gastrointestinal/Abdominal: Reports: nausea Allergies: Coded Allergies: No Known Allergies (Unverified , 08/13/16) All Systems: reviewed and negative except above Subjective he had nausea , but no vomiting, still has minimal drainage from his left chest wall, abscess. no chest pain or SOB. Objective Vital Signs Last 24 Hour Vital Signs Date Time Temp Pulse Resp B/P Pulse Ox O2 Delivery O2 Flow Rate FiO2 08/29/16 16:00 98.2 70 20 111/54 96 Room Air 08/29/16 12:00 97.7 74 20 101/48 100 Room Air 08/29/16 08:00 97.9 66 18 101/41 100 Room Air 08/29/16 04:00 98.2 69 18 118/48 99 Room Air 08/29/16 00:00 97.7 72 18 113/44 99 Room Air 08/28/16 20:00 98.2 66 19 102/56 Room Air Height (Feet): 5 Height (Inches): 9.00 Weight (Pounds): 125 General Appearance: WD/WN, no acute distress HEENT: normocephalic, atraumatic, anicteric, mucous membranes moist Respiratory/Chest: chest wall non-tender, lungs clear, normal breath sounds, no respiratory distress, no accessory muscle use Cardiovascular: normal peripheral pulses, normal rate, regular rhythm, no gallop/murmur, no JVD Abdomen: normal bowel sounds, soft, non tender, no organomegaly, non distended , no mass Extremities: no cyanosis, no clubbing Skin: no rash, no lesions, no ulcers Current Medications Medications (Trade) Dose Ordered Sig/Patricia Route PRN Reason Start Time Stop Time Status Last Admin Dose Admin Acetaminophen (Tylenol) 650 mg Q4H PRN ORAL T>100.5 08/20/16 06:30 09/19/16 06:29 08/26/16 00:10 Al Hydroxide/Mg Hydroxide (Mylanta II) 30 ml Q6H PRN ORAL dyspepsia 08/20/16 06:30 09/19/16 06:29 08/26/16 21:18 Cefepime HCl/ Dextrose (Maxipime/D5W) 110 ml @ 220 mls/hr Q24H IV 08/26/16 23:00 09/02/16 22:59 08/28/16 22:27 Dextrose STAT PRN IV Hypoglycemia 08/20/16 06:30 09/19/16 06:29 Doxycycline Hyclate 100 mg/ Dextrose 110 ml @ 110 mls/hr Q12HR IV 08/25/16 17:00 09/01/16 16:59 08/29/16 08:50 Heparin Sodium (Porcine) (Heparin 5000 units/ml) 5,000 units EVERY 12 HOURS SUBQ 08/20/16 09:00 09/19/16 08:59 08/27/16 08:27 Ondansetron HCl (Zofran) 4 mg Q6H PRN IVP Nausea & Vomiting 08/20/16 06:30 09/19/16 06:29 08/27/16 21:57 Polyethylene Glycol (Miralax) 17 gm HSPRN PRN ORAL Constipation 08/20/16 21:00 09/19/16 20:59 Sodium Chloride 1,000 ml @ 100 mls/hr Q10H IV 08/25/16 11:00 09/24/16 10:59 08/29/16 14:26 Zolpidem Tartrate (Ambien) 5 mg HSPRN PRN ORAL Insomnia 08/20/16 21:00 09/19/16 20:59 Srikanth Costello M.D. Aug 29, 2016 17:46
[2016-08-29 20:00] VITALS: BP 118/49
[2016-08-29] MEDS ORDERED: Levofloxacin 500mg tab ORAL SCH (21:00)
[2016-08-30] VITALS: BP 114/40
[2016-08-30 04:00] VITALS: BP 113/53
[2016-08-30 07:53] LABS: BASOPHILS % (AUTO) 0.7 % (0.0-2.0); EOSINOPHILS % (AUTO) 3.1 % (0.0-3.0); LYMPHOCYTES % (AUTO) 11.4 % (20.0-45.0); MEAN CORPUSCULAR HEMOGLOBIN 28.3 PG (27.0-31.0); MEAN CORPUSCULAR HGB CONC 32.4 G/DL (32.0-36.0); MEAN CORPUSCULAR VOLUME 87 FL (80-99); MEAN PLATELET VOLUME 5.8 FL (6.5-10.1); MONOCYTES % (AUTO) 7.8 % (1.0-10.0); PLATELET COUNT 363 K/UL (150-450); RED BLOOD COUNT 4.42 M/UL (4.70-6.10); RED CELL DISTRIBUTION WIDTH 12.3 % (11.6-14.8); WHITE BLOOD COUNT 10.9 K/UL (4.8-10.8)
[2016-08-30 08:00] VITALS: BP 110/53
[2016-08-30 08:35] LABS: ANION GAP 16 (5-15); CALCIUM 9.1 mg/dL (8.6-10.2); CARBON DIOXIDE 23 mEQ/L (20-30); CHLORIDE 103 mEQ/L (98-107); CREATININE 1.5 mg/dL (0.7-1.2); GLOMERULAR FILTRATION RATE > 60 mL/min (>60); HEMOLYSIS 4; POTASSIUM 4.1 mEQ/L (3.4-4.9); SODIUM 142 mEQ/L (135-145)
[2016-08-30] MEDS: Heparin 5000 units/ml inj SUBQ SCH ×2 (09:00→20:45)
[2016-08-30] MEDS ORDERED: ETHAMBUTOL HCL ORAL SCH (09:00)
[2016-08-30] MEDS: Isoniazid 300mg tab ORAL SCH (09:47)
[2016-08-30] MEDS: Pyridoxine 50mg tab ORAL SCH (09:47)
[2016-08-30] MEDS: ETHAMBUTOL 100 MG ORAL SCH (09:47)
[2016-08-30 12:00] VITALS: BP 103/54
--- NOTE | 2016-08-30 14:47 | General Progress Note ---
Assessment/Plan Problem List: (1) Mass of chest wall, left ICD Codes: R22.2 - Localized swelling, mass and lump, trunk SNOMED: 825841265 (2) Pneumonia ICD Codes: J18.9 - Pneumonia, unspecified organism SNOMED: 963911497 Status: stable, progressing, tolerating diet Assessment/Plan abx per id cbc bmp am dc plan Subjective Constitutional: Reports: weakness Respiratory: Reports: shortness of breath Allergies: Coded Allergies: No Known Allergies (Unverified , 08/13/16) All Systems: reviewed and negative except above Subjective calm no complaints Objective Last 24 Hour Vital Signs Date Time Temp Pulse Resp B/P Pulse Ox O2 Delivery O2 Flow Rate FiO2 08/30/16 12:00 97.0 60 20 103/54 100 Room Air 08/30/16 08:00 98.1 71 20 110/53 99 Room Air 08/30/16 04:00 97.2 61 16 113/53 99 Room Air 08/30/16 00:00 97.0 66 18 114/40 99 Room Air 08/29/16 20:00 98.2 69 20 118/49 100 Room Air 08/29/16 16:00 98.2 70 20 111/54 96 Room Air Intake and Output 08/29/16 08/30/16 19:00 07:00 Intake Total 1200 ml 780 ml Output Total 5 ml 102 ml Balance 1195 ml 678 ml Intake Oral 480 ml IV Total 1200 ml 300 ml Emesis 100 ml Other 5 ml 2 ml # Voids 4 Laboratory Tests 08/30/16 07:35: White Blood Count 10.9H, Red Blood Count 4.42L, Hemoglobin 12.5L, Hematocrit 38.6L, Mean Corpuscular Volume 87, Mean Corpuscular Hemoglobin 28.3, Mean Corpuscular Hemoglobin Concent 32.4, Red Cell Distribution Width 12.3, Platelet Count 363, Mean Platelet Volume 5.8L, Neutrophils (%) (Auto) 77.0H, Lymphocytes (%) (Auto) 11.4L, Monocytes (%) (Auto) 7.8, Eosinophils (%) (Auto) 3.1H, Basophils (%) (Auto) 0.7, Sodium Level 142, Potassium Level 4.1, Chloride Level 103, Carbon Dioxide Level 23, Anion Gap 16H, Blood Urea Nitrogen 13, Creatinine 1.5H, Estimat Glomerular Filtration Rate > 60, Glucose Level 94, Calcium Level 9.1 Height (Feet): 5 Height (Inches): 9.00 Weight (Pounds): 125 General Appearance: lethargic EENT: normal ENT inspection Neck: normal alignment Cardiovascular: normal peripheral pulses, normal rate, regular rhythm Respiratory/Chest: chest wall non-tender, lungs clear, normal breath sounds Abdomen: normal bowel sounds, non tender, soft Extremities: normal inspection Edema: no edema noted Arm (L), no edema noted Arm (R), no edema noted Leg (L), no edema noted Leg (R), no edema noted Pedal (L), no edema noted Pedal (R), no edema noted Generalized Neurologic: responsive, motor weakness Skin: normal pigmentation, warm/dry Objective drain in left chest VALENTIN SCHRADER Aug 30, 2016 14:47
[2016-08-30 16:00] VITALS: BP 113/51
--- NOTE | 2016-08-30 16:59 | Infectious Diseases Prog Note ---
Assessment/Plan Problems: (1) Chest wall abscess Assessment & Plan: most likely related to TB, had I&D, fluid culture was negative for any bacterial growth , serology is negative for fungal etiology , T spot test is positive which is suggestive of TB infection, since no alternative diagnosis to explain it, started on four drugs regimen for TB. (2) Empyema lung Assessment & Plan: suspect TB related , had lung biopsy with pathology showed necrotizing granuloma suggestive of TB , not Angel granulomatous , since his ANCA titer was negative , started on four drugs regimen for TB. discussed with [facility] Dr Garza , will send lung biopsy to [facility] for PCR, agreed on TB treatment for now. (3) Sepsis Assessment & Plan: due to the above, on wide spectrum antibiotics coverage, await culture (4) Pneumonia Assessment & Plan: suspect pulmonary TB, had lung biopsy which showed necrotizing granuloma, suggesting TB too . sputum for AFB x 3 are negative so far and culture is pending. will start four drugs regimen for TB treatment , notified [facility], who agreed on the plan .they will coordinate his plan of care with us. (5) ROMAN (acute kidney injury) Assessment & Plan: off vancomycin, continue IVF for hydration and monitor renal function, avoid nephrotoxic meds Subjective Constitutional: Reports: anorexia Allergies: Coded Allergies: No Known Allergies (Unverified , 08/13/16) All Systems: reviewed and negative except above Subjective he had nausea , but no vomiting tolerated oral intake well. no chest pain or SOB. Objective Vital Signs Last 24 Hour Vital Signs Date Time Temp Pulse Resp B/P Pulse Ox O2 Delivery O2 Flow Rate FiO2 08/30/16 16:00 98.2 76 17 113/51 Room Air 08/30/16 12:00 97.0 60 20 103/54 100 Room Air 08/30/16 08:00 98.1 71 20 110/53 99 Room Air 08/30/16 04:00 97.2 61 16 113/53 99 Room Air 08/30/16 00:00 97.0 66 18 114/40 99 Room Air 08/29/16 20:00 98.2 69 20 118/49 100 Room Air Height (Feet): 5 Height (Inches): 9.00 Weight (Pounds): 125 General Appearance: WD/WN, no acute distress HEENT: normocephalic, atraumatic, anicteric, mucous membranes moist Respiratory/Chest: normal breath sounds, no respiratory distress, no accessory muscle use, decreased breath sounds, crackles/rales Cardiovascular: normal peripheral pulses, normal rate, regular rhythm, no gallop/murmur, no JVD Abdomen: normal bowel sounds, soft, non tender, no organomegaly, non distended , no mass, no scars Extremities: no cyanosis, no clubbing Skin: no rash, no lesions Laboratory Tests Test 08/30/16 07:35 White Blood Count 10.9 K/UL (4.8-10.8) H Red Blood Count 4.42 M/UL (4.70-6.10) L Hemoglobin 12.5 G/DL (14.2-18.0) L Hematocrit 38.6 % (42.0-52.0) L Mean Corpuscular Volume 87 FL (80-99) Mean Corpuscular Hemoglobin 28.3 PG (27.0-31.0) Mean Corpuscular Hemoglobin Concent 32.4 G/DL (32.0-36.0) Red Cell Distribution Width 12.3 % (11.6-14.8) Platelet Count 363 K/UL (150-450) Mean Platelet Volume 5.8 FL (6.5-10.1) L Neutrophils (%) (Auto) 77.0 % (45.0-75.0) H Lymphocytes (%) (Auto) 11.4 % (20.0-45.0) L Monocytes (%) (Auto) 7.8 % (1.0-10.0) Eosinophils (%) (Auto) 3.1 % (0.0-3.0) H Basophils (%) (Auto) 0.7 % (0.0-2.0) Sodium Level 142 mEQ/L (135-145) Potassium Level 4.1 mEQ/L (3.4-4.9) Chloride Level 103 mEQ/L (98-107) Carbon Dioxide Level 23 mEQ/L (20-30) Anion Gap 16 (5-15) H Blood Urea Nitrogen 13 mg/dL (7-23) Creatinine 1.5 mg/dL (0.7-1.2) H Estimat Glomerular Filtration Rate > 60 mL/min (>60) Glucose Level 94 mg/dL (74-106) Calcium Level 9.1 mg/dL (8.6-10.2) Current Medications Medications (Trade) Dose Ordered Sig/Patricia Route PRN Reason Start Time Stop Time Status Last Admin Dose Admin Acetaminophen (Tylenol) 650 mg Q4H PRN ORAL T>100.5 08/20/16 06:30 09/19/16 06:29 08/29/16 22:18 Al Hydroxide/Mg Hydroxide (Mylanta II) 30 ml Q6H PRN ORAL dyspepsia 08/20/16 06:30 09/19/16 06:29 08/26/16 21:18 Dextrose STAT PRN IV Hypoglycemia 08/20/16 06:30 09/19/16 06:29 Ethambutol HCl (Myambutol) 50 mg DAILY ORAL 08/30/16 09:00 09/29/16 08:59 08/30/16 09:47 Ethambutol HCl (Myambutol) 800 mg DAILY ORAL 08/30/16 09:00 09/29/16 08:59 08/30/16 09:46 Heparin Sodium (Porcine) (Heparin 5000 units/ml) 5,000 units EVERY 12 HOURS SUBQ 08/20/16 09:00 09/19/16 08:59 08/27/16 08:27 Isoniazid (Inh) 300 mg DAILY ORAL 08/30/16 09:00 09/29/16 08:59 08/30/16 09:47 Ondansetron HCl (Zofran) 4 mg Q6H PRN IVP Nausea & Vomiting 08/20/16 06:30 09/19/16 06:29 08/27/16 21:57 Polyethylene Glycol (Miralax) 17 gm HSPRN PRN ORAL Constipation 08/20/16 21:00 09/19/16 20:59 Pyrazinamide (Pza) 1,000 mg DAILY ORAL 08/30/16 09:00 09/29/16 08:59 08/30/16 09:47 Pyridoxine HCl (Vitamin B6) 50 mg DAILY ORAL 08/30/16 09:00 09/29/16 08:59 08/30/16 09:47 Rifampin (Rifadin) 600 mg DAILY ORAL 08/30/16 17:00 09/29/16 16:59 Sodium Chloride (0.45% NS 1000ml) 1,000 ml @ 100 mls/hr Q10H IV 08/25/16 11:00 09/24/16 10:59 08/30/16 11:14 Zolpidem Tartrate (Ambien) 5 mg HSPRN PRN ORAL Insomnia 08/20/16 21:00 09/19/16 20:59 Srikanth Costello M.D. Aug 30, 2016 16:59
[2016-08-30 20:00] VITALS: BP 119/43
[2016-08-31 00:54] VITALS: BP 104/54
[2016-08-31 04:00] VITALS: BP 112/62
[2016-08-31 04:41] LABS: BASOPHILS % (AUTO) 0.9 % (0.0-2.0); EOSINOPHILS % (AUTO) 4.1 % (0.0-3.0); LYMPHOCYTES % (AUTO) 15.6 % (20.0-45.0); MEAN CORPUSCULAR HEMOGLOBIN 28.5 PG (27.0-31.0); MEAN CORPUSCULAR HGB CONC 32.6 G/DL (32.0-36.0); MEAN CORPUSCULAR VOLUME 87 FL (80-99); MEAN PLATELET VOLUME 5.9 FL (6.5-10.1); MONOCYTES % (AUTO) 9.2 % (1.0-10.0); NEUTROPHILS % (AUTO) 70.1 % (45.0-75.0); PLATELET COUNT 361 K/UL (150-450); RED BLOOD COUNT 4.43 M/UL (4.70-6.10); RED CELL DISTRIBUTION WIDTH 12.6 % (11.6-14.8); WHITE BLOOD COUNT 11.3 K/UL (4.8-10.8)
[2016-08-31 04:47] LABS: ANION GAP 14 (5-15); CALCIUM 8.9 mg/dL (8.6-10.2); CARBON DIOXIDE 22 mEQ/L (20-30); CHLORIDE 102 mEQ/L (98-107); CREATININE 1.3 mg/dL (0.7-1.2); GLOMERULAR FILTRATION RATE > 60 mL/min (>60); HEMOLYSIS 3; POTASSIUM 4.1 mEQ/L (3.4-4.9); SODIUM 138 mEQ/L (135-145)
[2016-08-31 08:00] VITALS: BP 105/40
[2016-08-31] MEDS: Isoniazid 300mg tab ORAL SCH (08:09)
[2016-08-31] MEDS: ETHAMBUTOL 100 MG ORAL SCH (08:10)
[2016-08-31] MEDS: Pyridoxine 50mg tab ORAL SCH (08:10)
[2016-08-31] MEDS: Heparin 5000 units/ml inj SUBQ SCH ×2 (08:10→21:00)
[2016-08-31 09:59] LABS: BILIRUBIN,DIRECT 0.2 mg/dL (0.1-0.3); TOTAL PROTEIN 6.2 g/dL (6.6-8.7)
[2016-08-31 12:00] VITALS: BP 107/45
--- NOTE | 2016-08-31 13:13 | General Progress Note ---
Assessment/Plan Problem List: (1) Mass of chest wall, left ICD Codes: R22.2 - Localized swelling, mass and lump, trunk SNOMED: [id number] (2) Pneumonia ICD Codes: J18.9 - Pneumonia, unspecified organism SNOMED: 222753384 Status: stable, progressing, tolerating diet Assessment/Plan abx per id cbc bmp am dc plan Subjective Constitutional: Reports: weakness Allergies: Coded Allergies: No Known Allergies (Unverified , 08/13/16) All Systems: reviewed and negative except above Subjective calm no complaints Objective Last 24 Hour Vital Signs Date Time Temp Pulse Resp B/P Pulse Ox O2 Delivery O2 Flow Rate FiO2 08/31/16 12:00 98.0 71 18 107/45 100 Room Air 08/31/16 08:00 97.7 82 19 105/40 100 Room Air 08/31/16 04:00 98.6 67 19 112/62 100 Room Air 08/31/16 00:54 97.7 54 18 104/54 100 Room Air 08/30/16 20:00 98.1 76 18 119/43 100 Room Air 08/30/16 16:00 98.2 76 17 113/51 Room Air Intake and Output 08/30/16 08/31/16 19:00 07:00 Intake Total 940 ml 1140 ml Output Total 10 ml Balance 940 ml 1130 ml Intake Oral 540 ml 240 ml IV Total 400 ml 900 ml Other 10 ml # Voids 6 6 # Bowel Movements 2 Laboratory Tests 08/31/16 04:10: White Blood Count 11.3H, Red Blood Count 4.43L, Hemoglobin 12.6L, Hematocrit 38.7L, Mean Corpuscular Volume 87, Mean Corpuscular Hemoglobin 28.5, Mean Corpuscular Hemoglobin Concent 32.6, Red Cell Distribution Width 12.6, Platelet Count 361, Mean Platelet Volume 5.9L, Neutrophils (%) (Auto) 70.1, Lymphocytes ( %) (Auto) 15.6L, Monocytes (%) (Auto) 9.2, Eosinophils (%) (Auto) 4.1H, Basophils (%) (Auto) 0.9, Sodium Level 138, Potassium Level 4.1, Chloride Level 102, Carbon Dioxide Level 22, Anion Gap 14, Blood Urea Nitrogen 14, Creatinine 1.3H, Estimat Glomerular Filtration Rate > 60, Glucose Level 94, Calcium Level 8.9, Total Bilirubin 0.6, Direct Bilirubin 0.2, Aspartate Amino Transf (AST/SGOT ) 18, Alanine Aminotransferase (ALT/SGPT) 7, Alkaline Phosphatase 49, Total Protein 6.2L, Albumin 2.8L Height (Feet): 5 Height (Inches): 9.00 Weight (Pounds): 125 General Appearance: alert EENT: normal ENT inspection Neck: normal alignment Cardiovascular: normal peripheral pulses, normal rate, regular rhythm Respiratory/Chest: chest wall non-tender, lungs clear, normal breath sounds Abdomen: normal bowel sounds, non tender, soft Extremities: normal inspection Edema: no edema noted Arm (L), no edema noted Arm (R), no edema noted Leg (L), no edema noted Leg (R), no edema noted Pedal (L), no edema noted Pedal (R), no edema noted Generalized Neurologic: responsive, motor weakness Skin: normal pigmentation, warm/dry Objective drain in left chest VALENTIN SCHRADER Aug 31, 2016 13:12
--- NOTE | 2016-08-31 13:31 | Nephrology Progress Note ---
Assessment/Plan Problem List: (1) Lipoma of anterior chest wall (2) Empyema lung (3) Sepsis (4) Chest wall abscess (5) Pneumonia (6) ROMAN (acute kidney injury) Plan AFB result pending Monitor Creatinine - improved Continue IVF ABX per ID Surg F/U Pulmo f/u Monitor I&O Avoid nephrotoxic agents am labs Subjective Constitutional: Denies: chills, diaphoresis, fever, malaise, no symptoms, other , weakness HEENT: Denies: blurred vision, double vision, ear discharge, ear pain, eye pain , mouth pain, mouth swelling, no symptoms, nose congestion, nose pain, other, tearing, throat pain, throat swelling Genitourinary: Denies: burning, discharge, flank pain, frequency, hematuria, incontinence, no symptoms, other, pain, urgency Neurologic/Psychiatric: Denies: anxiety, depressed, emotional problems, headache, no symptoms, numbness, other, paresthesia, pre-existing deficit, seizure, tingling, tremors, weakness Subjective Sitting by the bed, in no any discomfort Objective Objective Last 24 Hour Vital Signs Date Time Temp Pulse Resp B/P Pulse Ox O2 Delivery O2 Flow Rate FiO2 08/31/16 12:00 98.0 71 18 107/45 100 Room Air 08/31/16 08:00 97.7 82 19 105/40 100 Room Air 08/31/16 04:00 98.6 67 19 112/62 100 Room Air 08/31/16 00:54 97.7 54 18 104/54 100 Room Air 08/30/16 20:00 98.1 76 18 119/43 100 Room Air 08/30/16 16:00 98.2 76 17 113/51 Room Air Intake and Output 08/30/16 08/31/16 19:00 07:00 Intake Total 940 ml 1140 ml Output Total 10 ml Balance 940 ml 1130 ml Intake Oral 540 ml 240 ml IV Total 400 ml 900 ml Other 10 ml # Voids 6 6 # Bowel Movements 2 Laboratory Tests 08/31/16 04:10: White Blood Count 11.3H, Red Blood Count 4.43L, Hemoglobin 12.6L, Hematocrit 38.7L, Mean Corpuscular Volume 87, Mean Corpuscular Hemoglobin 28.5, Mean Corpuscular Hemoglobin Concent 32.6, Red Cell Distribution Width 12.6, Platelet Count 361, Mean Platelet Volume 5.9L, Neutrophils (%) (Auto) 70.1, Lymphocytes ( %) (Auto) 15.6L, Monocytes (%) (Auto) 9.2, Eosinophils (%) (Auto) 4.1H, Basophils (%) (Auto) 0.9, Sodium Level 138, Potassium Level 4.1, Chloride Level 102, Carbon Dioxide Level 22, Anion Gap 14, Blood Urea Nitrogen 14, Creatinine 1.3H, Estimat Glomerular Filtration Rate > 60, Glucose Level 94, Calcium Level 8.9, Total Bilirubin 0.6, Direct Bilirubin 0.2, Aspartate Amino Transf (AST/SGOT ) 18, Alanine Aminotransferase (ALT/SGPT) 7, Alkaline Phosphatase 49, Total Protein 6.2L, Albumin 2.8L Height (Feet): 5 Height (Inches): 9.00 Weight (Pounds): 125 General Appearance: no apparent distress, alert EENT: normal ENT inspection Neck: non-tender, normal alignment, supple, normal inspection Cardiovascular: normal rate, regular rhythm, no JVD Respiratory/Chest: normal breath sounds, no respiratory distress Abdomen: soft, no organomegaly, no mass Extremities: non-tender, normal inspection, no calf tenderness Neurologic: alert, oriented x 3, responsive, normal mood/affect Zeynep Presley N.P. Aug 31, 2016 13:31
[2016-08-31 16:00] VITALS: BP 102/50
--- NOTE | 2016-08-31 17:08 | Infectious Diseases Prog Note ---
Assessment/Plan Problems: (1) Chest wall abscess Assessment & Plan: most likely related to TB, had I&D, fluid culture was negative for any bacterial growth , serology is negative for fungal etiology , T spot test is positive which is suggestive of TB infection, since no alternative diagnosis to explain it, started on four drugs regimen for TB. notified [facility]. (2) Empyema lung Assessment & Plan: suspect TB related , had lung biopsy with pathology showed necrotizing granuloma suggestive of TB , not Angel granulomatous , since his ANCA titer was negative , started on four drugs regimen for TB. discussed with [facility] Dr Garza , will send lung biopsy to [facility] for PCR, agreed on TB treatment for now. (3) Sepsis Assessment & Plan: due to the above, on wide spectrum antibiotics coverage, await culture (4) Pneumonia Assessment & Plan: suspect pulmonary TB, had lung biopsy which showed necrotizing granuloma, suggesting TB too . sputum for AFB x 3 are negative so far and culture is pending. will start four drugs regimen for TB treatment , notified [facility], who agreed on the plan .they will coordinate his plan of care with us. (5) ROMAN (acute kidney injury) Assessment & Plan: off vancomycin, continue IVF for hydration and monitor renal function, avoid nephrotoxic meds Subjective Respiratory: Reports: dry cough Musculoskeletal: Reports: pain Allergies: Coded Allergies: No Known Allergies (Unverified , 08/13/16) All Systems: reviewed and negative except above Subjective he had nausea , but no vomiting tolerated oral intake well. no chest pain or SOB. Objective Vital Signs Last 24 Hour Vital Signs Date Time Temp Pulse Resp B/P Pulse Ox O2 Delivery O2 Flow Rate FiO2 08/31/16 16:00 97.2 59 18 102/50 86 Room Air 08/31/16 12:00 98.0 71 18 107/45 100 Room Air 08/31/16 08:00 97.7 82 19 105/40 100 Room Air 08/31/16 04:00 98.6 67 19 112/62 100 Room Air 08/31/16 00:54 97.7 54 18 104/54 100 Room Air 08/30/16 20:00 98.1 76 18 119/43 100 Room Air Height (Feet): 5 Height (Inches): 9.00 Weight (Pounds): 125 General Appearance: WD/WN, no acute distress HEENT: normocephalic, atraumatic, anicteric, mucous membranes moist Respiratory/Chest: chest wall non-tender, lungs clear, normal breath sounds, no respiratory distress, no accessory muscle use Cardiovascular: normal peripheral pulses, normal rate, regular rhythm, no gallop/murmur, no JVD Abdomen: normal bowel sounds, soft, non tender, no organomegaly, non distended , no mass, no scars Extremities: no cyanosis, no clubbing Neurologic/Psychiatric: alert, oriented x 3 Laboratory Tests Test 08/31/16 04:10 White Blood Count 11.3 K/UL (4.8-10.8) H Red Blood Count 4.43 M/UL (4.70-6.10) L Hemoglobin 12.6 G/DL (14.2-18.0) L Hematocrit 38.7 % (42.0-52.0) L Mean Corpuscular Volume 87 FL (80-99) Mean Corpuscular Hemoglobin 28.5 PG (27.0-31.0) Mean Corpuscular Hemoglobin Concent 32.6 G/DL (32.0-36.0) Red Cell Distribution Width 12.6 % (11.6-14.8) Platelet Count 361 K/UL (150-450) Mean Platelet Volume 5.9 FL (6.5-10.1) L Neutrophils (%) (Auto) 70.1 % (45.0-75.0) Lymphocytes (%) (Auto) 15.6 % (20.0-45.0) L Monocytes (%) (Auto) 9.2 % (1.0-10.0) Eosinophils (%) (Auto) 4.1 % (0.0-3.0) H Basophils (%) (Auto) 0.9 % (0.0-2.0) Sodium Level 138 mEQ/L (135-145) Potassium Level 4.1 mEQ/L (3.4-4.9) Chloride Level 102 mEQ/L (98-107) Carbon Dioxide Level 22 mEQ/L (20-30) Anion Gap 14 (5-15) Blood Urea Nitrogen 14 mg/dL (7-23) Creatinine 1.3 mg/dL (0.7-1.2) H Estimat Glomerular Filtration Rate > 60 mL/min (>60) Glucose Level 94 mg/dL (74-106) Calcium Level 8.9 mg/dL (8.6-10.2) Total Bilirubin 0.6 mg/dL (0.0-1.2) Direct Bilirubin 0.2 mg/dL (0.1-0.3) Aspartate Amino Transf (AST/SGOT) 18 U/L (5-40) Alanine Aminotransferase (ALT/SGPT) 7 U/L (3-41) Alkaline Phosphatase 49 U/L (40-129) Total Protein 6.2 g/dL (6.6-8.7) L Albumin 2.8 g/dL (3.5-5.2) L Current Medications Medications (Trade) Dose Ordered Sig/Patricia Route PRN Reason Start Time Stop Time Status Last Admin Dose Admin Acetaminophen (Tylenol) 650 mg Q4H PRN ORAL T>100.5 08/20/16 06:30 09/19/16 06:29 08/30/16 20:52 Al Hydroxide/Mg Hydroxide (Mylanta II) 30 ml Q6H PRN ORAL dyspepsia 08/20/16 06:30 09/19/16 06:29 08/26/16 21:18 Dextrose STAT PRN IV Hypoglycemia 08/20/16 06:30 09/19/16 06:29 Ethambutol HCl (Myambutol) 50 mg DAILY ORAL 08/30/16 09:00 09/29/16 08:59 08/31/16 08:10 Ethambutol HCl (Myambutol) 800 mg DAILY ORAL 08/30/16 09:00 09/29/16 08:59 08/31/16 08:10 Heparin Sodium (Porcine) (Heparin 5000 units/ml) 5,000 units EVERY 12 HOURS SUBQ 08/20/16 09:00 09/19/16 08:59 08/27/16 08:27 Isoniazid (Inh) 300 mg DAILY ORAL 08/30/16 09:00 09/29/16 08:59 08/31/16 08:09 Ondansetron HCl (Zofran) 4 mg Q6H PRN IVP Nausea & Vomiting 08/20/16 06:30 09/19/16 06:29 08/27/16 21:57 Polyethylene Glycol (Miralax) 17 gm HSPRN PRN ORAL Constipation 08/20/16 21:00 09/19/16 20:59 Pyrazinamide (Pza) 1,000 mg DAILY ORAL 08/30/16 09:00 09/29/16 08:59 08/31/16 08:10 Pyridoxine HCl (Vitamin B6) 50 mg DAILY ORAL 08/30/16 09:00 09/29/16 08:59 08/31/16 08:10 Rifampin (Rifadin) 600 mg DAILY ORAL 08/30/16 17:00 09/29/16 16:59 08/31/16 08:10 Sodium Chloride (0.45% NS 1000ml) 1,000 ml @ 100 mls/hr Q10H IV 08/25/16 11:00 09/24/16 10:59 08/31/16 16:11 Zolpidem Tartrate (Ambien) 5 mg HSPRN PRN ORAL Insomnia 08/20/16 21:00 09/19/16 20:59 Srikanth Costello M.D. Aug 31, 2016 17:07
--- NOTE | 2016-08-31 18:50 | General Progress Note ---
Assessment/Plan Assessment/Plan Assessment: # Anemia 2/2 chronic disease # Leukocytosis likely 2/2 underlying infection # Thrombocytosis - 2/2 reactive process # Chest well abscess - potentially TB related # Empyema of the lung, most recent CT worse # Sepsis # PNA # ROMAN - has improved Recs: - Monitor counts - Peripheral smear reviewed - MOnitor coagulopathy - Anemia workup reviewed - ABx as needed - DVT ppx with heparin sq - F/u on pulm recs - DW Staff Sincerely, Steven Medel MD Subjective Constitutional: Reports: no symptoms HEENT: Reports: no symptoms Cardiovascular: Reports: no symptoms Respiratory: Reports: no symptoms Gastrointestinal/Abdominal: Reports: poor appetite Genitourinary: Reports: no symptoms Neurologic/Psychiatric: Reports: no symptoms Endocrine: Reports: no symptoms Hematologic/Lymphatic: Reports: anemia Allergies: Coded Allergies: No Known Allergies (Unverified , 08/13/16) Subjective stable, no fevers, chills or night sweats Objective Last 24 Hour Vital Signs Date Time Temp Pulse Resp B/P Pulse Ox O2 Delivery O2 Flow Rate FiO2 08/31/16 16:00 97.2 59 18 102/50 86 Room Air 08/31/16 12:00 98.0 71 18 107/45 100 Room Air 08/31/16 08:00 97.7 82 19 105/40 100 Room Air 08/31/16 04:00 98.6 67 19 112/62 100 Room Air 08/31/16 00:54 97.7 54 18 104/54 100 Room Air 08/30/16 20:00 98.1 76 18 119/43 100 Room Air Intake and Output 08/30/16 08/31/16 19:00 07:00 Intake Total 940 ml 1140 ml Output Total 10 ml Balance 940 ml 1130 ml Intake Oral 540 ml 240 ml IV Total 400 ml 900 ml Other 10 ml # Voids 6 6 # Bowel Movements 2 Laboratory Tests 08/31/16 04:10: White Blood Count 11.3H, Red Blood Count 4.43L, Hemoglobin 12.6L, Hematocrit 38.7L, Mean Corpuscular Volume 87, Mean Corpuscular Hemoglobin 28.5, Mean Corpuscular Hemoglobin Concent 32.6, Red Cell Distribution Width 12.6, Platelet Count 361, Mean Platelet Volume 5.9L, Neutrophils (%) (Auto) 70.1, Lymphocytes ( %) (Auto) 15.6L, Monocytes (%) (Auto) 9.2, Eosinophils (%) (Auto) 4.1H, Basophils (%) (Auto) 0.9, Sodium Level 138, Potassium Level 4.1, Chloride Level 102, Carbon Dioxide Level 22, Anion Gap 14, Blood Urea Nitrogen 14, Creatinine 1.3H, Estimat Glomerular Filtration Rate > 60, Glucose Level 94, Calcium Level 8.9, Total Bilirubin 0.6, Direct Bilirubin 0.2, Aspartate Amino Transf (AST/SGOT ) 18, Alanine Aminotransferase (ALT/SGPT) 7, Alkaline Phosphatase 49, Total Protein 6.2L, Albumin 2.8L Height (Feet): 5 Height (Inches): 9.00 Weight (Pounds): 125 General Appearance: no apparent distress EENT: TMs normal Neck: normal alignment Cardiovascular: normal peripheral pulses Respiratory/Chest: lungs clear Abdomen: soft Extremities: normal inspection Edema: 1+ Leg (L), 1+ Leg (R) Edema: mild edema Neurologic: no motor/sensory deficits, oriented x 3 Skin: warm/dry Steven Medel Aug 31, 2016 18:49
--- NOTE | 2016-08-31 19:16 | Nephrology Progress Note ---
Assessment/Plan Problem List: (1) ROMAN (acute kidney injury) Assessment: ATN? 2/ Vanco? now improving. (2) Pneumonia Assessment: TB? (3) Mass of chest wall, left (4) Sepsis (5) Empyema lung Plan f/u AFB cultures. smear neg. f/u pulm rec. Cr slowly trending down. cont IVF for now. will monitor labs. good UOP. Subjective Subjective late entry for 08/30/16 - no new c/o. Objective Objective Last 24 Hour Vital Signs Date Time Temp Pulse Resp B/P Pulse Ox O2 Delivery O2 Flow Rate FiO2 08/31/16 16:00 97.2 59 18 102/50 86 Room Air 08/31/16 12:00 98.0 71 18 107/45 100 Room Air 08/31/16 08:00 97.7 82 19 105/40 100 Room Air 08/31/16 04:00 98.6 67 19 112/62 100 Room Air 08/31/16 00:54 97.7 54 18 104/54 100 Room Air 08/30/16 20:00 98.1 76 18 119/43 100 Room Air Intake and Output 08/30/16 08/31/16 19:00 07:00 Intake Total 940 ml 1140 ml Output Total 10 ml Balance 940 ml 1130 ml Intake Oral 540 ml 240 ml IV Total 400 ml 900 ml Other 10 ml # Voids 6 6 # Bowel Movements 2 Laboratory Tests 08/31/16 04:10: White Blood Count 11.3H, Red Blood Count 4.43L, Hemoglobin 12.6L, Hematocrit 38.7L, Mean Corpuscular Volume 87, Mean Corpuscular Hemoglobin 28.5, Mean Corpuscular Hemoglobin Concent 32.6, Red Cell Distribution Width 12.6, Platelet Count 361, Mean Platelet Volume 5.9L, Neutrophils (%) (Auto) 70.1, Lymphocytes ( %) (Auto) 15.6L, Monocytes (%) (Auto) 9.2, Eosinophils (%) (Auto) 4.1H, Basophils (%) (Auto) 0.9, Sodium Level 138, Potassium Level 4.1, Chloride Level 102, Carbon Dioxide Level 22, Anion Gap 14, Blood Urea Nitrogen 14, Creatinine 1.3H, Estimat Glomerular Filtration Rate > 60, Glucose Level 94, Calcium Level 8.9, Total Bilirubin 0.6, Direct Bilirubin 0.2, Aspartate Amino Transf (AST/SGOT ) 18, Alanine Aminotransferase (ALT/SGPT) 7, Alkaline Phosphatase 49, Total Protein 6.2L, Albumin 2.8L Height (Feet): 5 Height (Inches): 9.00 Weight (Pounds): 125 General Appearance: no apparent distress Cardiovascular: normal rate, regular rhythm Respiratory/Chest: lungs clear Abdomen: non tender, soft DAI ROSALES Aug 31, 2016 19:16
[2016-08-31 20:00] VITALS: BP_SYST 106; BP_SYST 108; BP_DIAS 50
[2016-08-31] MEDS ORDERED: 1/2 NS 1000ml IV ONE (21:13)
[2016-09-01] VITALS: BP 109/59
[2016-09-01 04:00] VITALS: BP 116/45
[2016-09-01 07:16] LABS: BASOPHILS % (AUTO) 0.7 % (0.0-2.0); EOSINOPHILS % (AUTO) 2.9 % (0.0-3.0); LYMPHOCYTES % (AUTO) 14.6 % (20.0-45.0); MEAN CORPUSCULAR HEMOGLOBIN 28.9 PG (27.0-31.0); MEAN CORPUSCULAR HGB CONC 32.9 G/DL (32.0-36.0); MEAN CORPUSCULAR VOLUME 88 FL (80-99); MEAN PLATELET VOLUME 6.1 FL (6.5-10.1); MONOCYTES % (AUTO) 8.7 % (1.0-10.0); PLATELET COUNT 382 K/UL (150-450); RED BLOOD COUNT 4.16 M/UL (4.70-6.10); RED CELL DISTRIBUTION WIDTH 12.5 % (11.6-14.8); WHITE BLOOD COUNT 11.6 K/UL (4.8-10.8)
[2016-09-01 07:39] LABS: ALANINE AMINOTRANSFERASE 5 U/L (3-41); ALBUMIN/GLOBULIN RATIO 0.8 (1.0-2.7); ANION GAP 18 (5-15); ASPARTATE AMINO TRANSFERASE 11 U/L (5-40); CALCIUM 8.9 mg/dL (8.6-10.2); CARBON DIOXIDE 22 mEQ/L (20-30); CHLORIDE 100 mEQ/L (98-107); CREATININE 1.3 mg/dL (0.7-1.2); GLOMERULAR FILTRATION RATE > 60 mL/min (>60); HEMOLYSIS 10; POTASSIUM 4.3 mEQ/L (3.4-4.9); SODIUM 140 mEQ/L (135-145); TOTAL PROTEIN 6.3 g/dL (6.6-8.7)
--- NOTE | 2016-09-01 07:45 | General Progress Note ---
Assessment/Plan Problem List: (1) Mass of chest wall, left ICD Codes: R22.2 - Localized swelling, mass and lump, trunk SNOMED: 707704203 (2) Pneumonia ICD Codes: J18.9 - Pneumonia, unspecified organism SNOMED: 286697581 Status: stable, progressing, tolerating diet Assessment/Plan abx per id cbc bmp am dc plan Subjective Constitutional: Reports: weakness Allergies: Coded Allergies: No Known Allergies (Unverified , 08/13/16) All Systems: reviewed and negative except above Subjective calm no complaints Objective Last 24 Hour Vital Signs Date Time Temp Pulse Resp B/P Pulse Ox O2 Delivery O2 Flow Rate FiO2 09/01/16 04:00 98.1 73 18 116/45 99 Room Air 09/01/16 00:00 98.4 79 18 109/59 100 Room Air 08/31/16 20:00 98.1 67 17 108/50 100 Room Air 08/31/16 16:00 97.2 59 18 102/50 86 Room Air 08/31/16 12:00 98.0 71 18 107/45 100 Room Air 08/31/16 08:00 97.7 82 19 105/40 100 Room Air Intake and Output 08/31/16 09/01/16 19:00 07:00 Intake Total 350 ml 940 ml Output Total 15 ml Balance 335 ml 940 ml Intake Oral 350 ml 240 ml IV Total 700 ml Other 15 ml # Voids 5 2 # Bowel Movements 2 2 Laboratory Tests 09/01/16 05:00: White Blood Count 11.6H, Red Blood Count 4.16L, Hemoglobin 12.0L, Hematocrit 36.6L, Mean Corpuscular Volume 88, Mean Corpuscular Hemoglobin 28.9, Mean Corpuscular Hemoglobin Concent 32.9, Red Cell Distribution Width 12.5, Platelet Count 382, Mean Platelet Volume 6.1L, Neutrophils (%) (Auto) 73.0, Lymphocytes ( %) (Auto) 14.6L, Monocytes (%) (Auto) 8.7, Eosinophils (%) (Auto) 2.9, Basophils (%) (Auto) 0.7, Sodium Level 140, Potassium Level 4.3, Chloride Level 100, Carbon Dioxide Level 22, Anion Gap 18H, Blood Urea Nitrogen 14, Creatinine 1.3H, Estimat Glomerular Filtration Rate > 60, Glucose Level 100, Calcium Level 8.9, Total Bilirubin 0.4, Aspartate Amino Transf (AST/SGOT) 11, Alanine Aminotransferase (ALT/SGPT) 5, Alkaline Phosphatase 57, Total Protein 6.3L, Albumin 2.9L, Globulin 3.4, Albumin/Globulin Ratio 0.8L Height (Feet): 5 Height (Inches): 9.00 Weight (Pounds): 125 General Appearance: alert EENT: normal ENT inspection Neck: normal alignment Cardiovascular: normal peripheral pulses, normal rate, regular rhythm Respiratory/Chest: chest wall non-tender, lungs clear, decreased breath sounds Abdomen: normal bowel sounds, non tender, soft Extremities: normal inspection Edema: no edema noted Arm (L), no edema noted Arm (R), no edema noted Leg (L), no edema noted Leg (R), no edema noted Pedal (L), no edema noted Pedal (R), no edema noted Generalized Neurologic: responsive, motor weakness Skin: normal pigmentation, warm/dry Objective drain in left chest VALENTIN SCHRADER Sep 01, 2016 07:45
[2016-09-01 08:00] VITALS: BP 108/60
[2016-09-01] MEDS: Heparin 5000 units/ml inj SUBQ SCH ×2 (09:00→19:55)
[2016-09-01] MEDS: Isoniazid 300mg tab ORAL SCH (09:21)
[2016-09-01] MEDS: ETHAMBUTOL 100 MG ORAL SCH (09:21)
[2016-09-01] MEDS: Pyridoxine 50mg tab ORAL SCH (09:21)
[2016-09-01 12:00] VITALS: BP 110/75
--- NOTE | 2016-09-01 12:36 | Nephrology Progress Note ---
Assessment/Plan Problem List: (1) Lipoma of anterior chest wall (2) Empyema lung (3) Sepsis (4) Chest wall abscess (5) Pneumonia (6) ROMAN (acute kidney injury) Plan AFB result pending Monitor Creatinine - improved Continue IVF ABX per ID TB treatment per ID Surg F/U Pulmo f/u Monitor I&O Avoid nephrotoxic agents Continue Isolation am labs Subjective Constitutional: Denies: chills, diaphoresis, fever, malaise, no symptoms, other , weakness HEENT: Denies: blurred vision, double vision, ear discharge, ear pain, eye pain , mouth pain, mouth swelling, no symptoms, nose congestion, nose pain, other, tearing, throat pain, throat swelling Genitourinary: Denies: burning, discharge, flank pain, frequency, hematuria, incontinence, no symptoms, other, pain, urgency Neurologic/Psychiatric: Denies: anxiety, depressed, emotional problems, headache, no symptoms, numbness, other, paresthesia, pre-existing deficit, seizure, tingling, tremors, weakness Subjective In bed, denies discomfort Objective Objective Last 24 Hour Vital Signs Date Time Temp Pulse Resp B/P Pulse Ox O2 Delivery O2 Flow Rate FiO2 09/01/16 08:00 98.1 70 19 108/60 100 Room Air 09/01/16 04:00 98.1 73 18 116/45 99 Room Air 09/01/16 00:00 98.4 79 18 109/59 100 Room Air 08/31/16 20:00 98.1 67 17 108/50 100 Room Air 08/31/16 16:00 97.2 59 18 102/50 86 Room Air Intake and Output 08/31/16 09/01/16 19:00 07:00 Intake Total 350 ml 1140 ml Output Total 15 ml Balance 335 ml 1140 ml Intake Oral 350 ml 240 ml IV Total 900 ml Other 15 ml # Voids 5 2 # Bowel Movements 2 2 Laboratory Tests 09/01/16 05:00: White Blood Count 11.6H, Red Blood Count 4.16L, Hemoglobin 12.0L, Hematocrit 36.6L, Mean Corpuscular Volume 88, Mean Corpuscular Hemoglobin 28.9, Mean Corpuscular Hemoglobin Concent 32.9, Red Cell Distribution Width 12.5, Platelet Count 382, Mean Platelet Volume 6.1L, Neutrophils (%) (Auto) 73.0, Lymphocytes ( %) (Auto) 14.6L, Monocytes (%) (Auto) 8.7, Eosinophils (%) (Auto) 2.9, Basophils (%) (Auto) 0.7, Sodium Level 140, Potassium Level 4.3, Chloride Level 100, Carbon Dioxide Level 22, Anion Gap 18H, Blood Urea Nitrogen 14, Creatinine 1.3H, Estimat Glomerular Filtration Rate > 60, Glucose Level 100, Calcium Level 8.9, Total Bilirubin 0.4, Aspartate Amino Transf (AST/SGOT) 11, Alanine Aminotransferase (ALT/SGPT) 5, Alkaline Phosphatase 57, Total Protein 6.3L, Albumin 2.9L, Globulin 3.4, Albumin/Globulin Ratio 0.8L Height (Feet): 5 Height (Inches): 9.00 Weight (Pounds): 125 General Appearance: no apparent distress, alert EENT: normal ENT inspection Neck: normal alignment, supple Cardiovascular: normal rate, regular rhythm, no JVD Respiratory/Chest: normal breath sounds, no respiratory distress Abdomen: soft, no organomegaly Extremities: normal range of motion, non-tender, normal inspection, no calf tenderness Neurologic: alert, oriented x 3, responsive, normal mood/affect Zeynep Presley N.P. Sep 01, 2016 12:36
--- NOTE | 2016-09-01 15:34 | Infectious Diseases Prog Note ---
Assessment/Plan Problems: (1) Chest wall abscess Assessment & Plan: most likely related to TB, had I&D, fluid culture was negative for any bacterial growth , serology is negative for fungal etiology , T spot test is positive which is suggestive of TB infection, since no alternative diagnosis to explain it, started on four drugs regimen for TB. tolerated well the medications , notified [facility]. (2) Empyema lung Assessment & Plan: suspect TB related , had lung biopsy with pathology showed necrotizing granuloma suggestive of TB , not Angel granulomatous , since his ANCA titer was negative , started on four drugs regimen for TB. discussed with [facility] Dr Garza , will send lung biopsy to [facility] for PCR, agreed on TB treatment for now. (3) Sepsis Assessment & Plan: due to the above, on wide spectrum antibiotics coverage, await culture (4) Pneumonia Assessment & Plan: suspect pulmonary TB, had lung biopsy which showed necrotizing granuloma, suggesting TB too . sputum for AFB x 3 are negative so far and culture is pending. will continue four drugs regimen for TB treatment , notified [facility], who agreed on the plan .they will coordinate his plan of care with us. (5) ROMAN (acute kidney injury) Assessment & Plan: improving, continue IVF for hydration and monitor renal function, avoid nephrotoxic meds Subjective Constitutional: Reports: anorexia HEENT: Denies: congestion, coryza, dysphagia, hearing change, no symptoms, other, visual change Respiratory: Denies: dry cough, no symptoms, other, productive cough, shortness of breath Breasts: Denies: discharge, no symptoms, other, swelling, tenderness Cardiovascular: Denies: chest pain, dyspnea on exertion, no symptoms, other, palpitations Gastrointestinal/Abdominal: Denies: bloating, blood in stool, constipation, diarrhea, nausea, no symptoms, other, vomiting Genitourinary: Denies: dysuria, frequency, hematuria, no symptoms, nocturia, other Neurologic: Denies: confusion, headache, no symptoms, numbness, other, weakness Psychiatric: Denies: anxiety, depression, no symptoms, other Skin: Denies: no symptoms, other, rash, ulcer Endocrine: Denies: feels cold, feels warm, no symptoms, other Allergies: Coded Allergies: No Known Allergies (Unverified , 08/13/16) Subjective he tolerated oral intake well. no chest pain or SOB.still has surgical drainage in place for the left chest wall abscess Objective Vital Signs Last 24 Hour Vital Signs Date Time Temp Pulse Resp B/P Pulse Ox O2 Delivery O2 Flow Rate FiO2 09/01/16 12:00 98.2 64 19 110/75 100 Room Air 09/01/16 08:00 98.1 70 19 108/60 100 Room Air 09/01/16 04:00 98.1 73 18 116/45 99 Room Air 09/01/16 00:00 98.4 79 18 109/59 100 Room Air 08/31/16 20:00 98.1 67 17 108/50 100 Room Air 08/31/16 16:00 97.2 59 18 102/50 86 Room Air Height (Feet): 5 Height (Inches): 9.00 Weight (Pounds): 125 General Appearance: WD/WN, no acute distress HEENT: normocephalic, atraumatic, anicteric Respiratory/Chest: chest wall non-tender, lungs clear, normal breath sounds, no respiratory distress, no accessory muscle use Cardiovascular: normal peripheral pulses, normal rate, regular rhythm, no gallop/murmur, no JVD Abdomen: normal bowel sounds, soft, non tender, no organomegaly, non distended , no mass Extremities: no cyanosis, no clubbing Skin: no rash, no lesions Musculoskeletal: normal muscle bulk, no effusion, other - left chest wall abscess with surgical drainage in it Laboratory Tests Test 09/01/16 05:00 White Blood Count 11.6 K/UL (4.8-10.8) H Red Blood Count 4.16 M/UL (4.70-6.10) L Hemoglobin 12.0 G/DL (14.2-18.0) L Hematocrit 36.6 % (42.0-52.0) L Mean Corpuscular Volume 88 FL (80-99) Mean Corpuscular Hemoglobin 28.9 PG (27.0-31.0) Mean Corpuscular Hemoglobin Concent 32.9 G/DL (32.0-36.0) Red Cell Distribution Width 12.5 % (11.6-14.8) Platelet Count 382 K/UL (150-450) Mean Platelet Volume 6.1 FL (6.5-10.1) L Neutrophils (%) (Auto) 73.0 % (45.0-75.0) Lymphocytes (%) (Auto) 14.6 % (20.0-45.0) L Monocytes (%) (Auto) 8.7 % (1.0-10.0) Eosinophils (%) (Auto) 2.9 % (0.0-3.0) Basophils (%) (Auto) 0.7 % (0.0-2.0) Sodium Level 140 mEQ/L (135-145) Potassium Level 4.3 mEQ/L (3.4-4.9) Chloride Level 100 mEQ/L (98-107) Carbon Dioxide Level 22 mEQ/L (20-30) Anion Gap 18 (5-15) H Blood Urea Nitrogen 14 mg/dL (7-23) Creatinine 1.3 mg/dL (0.7-1.2) H Estimat Glomerular Filtration Rate > 60 mL/min (>60) Glucose Level 100 mg/dL (74-106) Calcium Level 8.9 mg/dL (8.6-10.2) Total Bilirubin 0.4 mg/dL (0.0-1.2) Aspartate Amino Transf (AST/SGOT) 11 U/L (5-40) Alanine Aminotransferase (ALT/SGPT) 5 U/L (3-41) Alkaline Phosphatase 57 U/L (40-129) Total Protein 6.3 g/dL (6.6-8.7) L Albumin 2.9 g/dL (3.5-5.2) L Globulin 3.4 g/dL Albumin/Globulin Ratio 0.8 (1.0-2.7) L Current Medications Medications (Trade) Dose Ordered Sig/Patricia Route PRN Reason Start Time Stop Time Status Last Admin Dose Admin Acetaminophen (Tylenol) 650 mg Q4H PRN ORAL T>100.5 08/20/16 06:30 09/19/16 06:29 08/30/16 20:52 Al Hydroxide/Mg Hydroxide (Mylanta II) 30 ml Q6H PRN ORAL dyspepsia 08/20/16 06:30 09/19/16 06:29 08/26/16 21:18 Dextrose STAT PRN IV Hypoglycemia 08/20/16 06:30 09/19/16 06:29 Ethambutol HCl (Myambutol) 50 mg DAILY ORAL 08/30/16 09:00 09/29/16 08:59 09/01/16 09:21 Ethambutol HCl (Myambutol) 800 mg DAILY ORAL 08/30/16 09:00 09/29/16 08:59 09/01/16 09:21 Heparin Sodium (Porcine) (Heparin 5000 units/ml) 5,000 units EVERY 12 HOURS SUBQ 08/20/16 09:00 09/19/16 08:59 08/27/16 08:27 Isoniazid (Inh) 300 mg DAILY ORAL 08/30/16 09:00 09/29/16 08:59 09/01/16 09:21 Ondansetron HCl (Zofran) 4 mg Q6H PRN IVP Nausea & Vomiting 08/20/16 06:30 09/19/16 06:29 08/27/16 21:57 Polyethylene Glycol (Miralax) 17 gm HSPRN PRN ORAL Constipation 08/20/16 21:00 09/19/16 20:59 Pyrazinamide (Pza) 1,000 mg DAILY ORAL 08/30/16 09:00 09/29/16 08:59 09/01/16 09:22 Pyridoxine HCl (Vitamin B6) 50 mg DAILY ORAL 08/30/16 09:00 09/29/16 08:59 09/01/16 09:21 Rifampin (Rifadin) 600 mg DAILY ORAL 08/30/16 17:00 09/29/16 16:59 09/01/16 09:22 Sodium Chloride (0.45% NS 1000ml) 1,000 ml @ 100 mls/hr Q10H IV 08/25/16 11:00 09/24/16 10:59 09/01/16 13:32 Zolpidem Tartrate (Ambien) 5 mg HSPRN PRN ORAL Insomnia 08/20/16 21:00 09/19/16 20:59 Srikanth Costello M.D. Sep 01, 2016 15:34
--- NOTE | 2016-09-01 16:24 | General Progress Note ---
Assessment/Plan Assessment/Plan Assessment: # Anemia 2/2 chronic disease # Leukocytosis likely 2/2 underlying infection # Thrombocytosis - 2/2 reactive process # Chest well abscess - potentially TB related # Empyema of the lung, most recent CT worse # Sepsis # PNA # ROMAN - has improved Recs: - Monitor counts - Peripheral smear reviewed - MOnitor coagulopathy - Anemia workup reviewed - ABx as needed - DVT ppx with heparin sq - F/u on pulm recs - Staff Sincerely, Ailin Medel MD Subjective Constitutional: Reports: no symptoms HEENT: Reports: no symptoms Cardiovascular: Reports: no symptoms Respiratory: Reports: no symptoms Genitourinary: Reports: no symptoms Neurologic/Psychiatric: Reports: no symptoms Endocrine: Reports: no symptoms Hematologic/Lymphatic: Reports: no symptoms Allergies: Coded Allergies: No Known Allergies (Unverified , 08/13/16) Objective Last 24 Hour Vital Signs Date Time Temp Pulse Resp B/P Pulse Ox O2 Delivery O2 Flow Rate FiO2 09/01/16 12:00 98.2 64 19 110/75 100 Room Air 09/01/16 08:00 98.1 70 19 108/60 100 Room Air 09/01/16 04:00 98.1 73 18 116/45 99 Room Air 09/01/16 00:00 98.4 79 18 109/59 100 Room Air 08/31/16 20:00 98.1 67 17 108/50 100 Room Air Intake and Output 08/31/16 09/01/16 19:00 07:00 Intake Total 350 ml 1140 ml Output Total 15 ml Balance 335 ml 1140 ml Intake Oral 350 ml 240 ml IV Total 900 ml Other 15 ml # Voids 5 2 # Bowel Movements 2 2 Laboratory Tests 09/01/16 05:00: White Blood Count 11.6H, Red Blood Count 4.16L, Hemoglobin 12.0L, Hematocrit 36.6L, Mean Corpuscular Volume 88, Mean Corpuscular Hemoglobin 28.9, Mean Corpuscular Hemoglobin Concent 32.9, Red Cell Distribution Width 12.5, Platelet Count 382, Mean Platelet Volume 6.1L, Neutrophils (%) (Auto) 73.0, Lymphocytes ( %) (Auto) 14.6L, Monocytes (%) (Auto) 8.7, Eosinophils (%) (Auto) 2.9, Basophils (%) (Auto) 0.7, Sodium Level 140, Potassium Level 4.3, Chloride Level 100, Carbon Dioxide Level 22, Anion Gap 18H, Blood Urea Nitrogen 14, Creatinine 1.3H, Estimat Glomerular Filtration Rate > 60, Glucose Level 100, Calcium Level 8.9, Total Bilirubin 0.4, Aspartate Amino Transf (AST/SGOT) 11, Alanine Aminotransferase (ALT/SGPT) 5, Alkaline Phosphatase 57, Total Protein 6.3L, Albumin 2.9L, Globulin 3.4, Albumin/Globulin Ratio 0.8L Height (Feet): 5 Height (Inches): 9.00 Weight (Pounds): 125 General Appearance: alert EENT: normal ENT inspection Neck: supple Cardiovascular: regular rhythm Respiratory/Chest: lungs clear Abdomen: soft Pelvis: no masses Extremities: non-tender Edema: no edema noted Arm (L), no edema noted Arm (R), no edema noted Leg (L), no edema noted Leg (R), no edema noted Pedal (L), no edema noted Pedal (R), no edema noted Generalized Edema: mild edema Neurologic: alert Skin: warm/dry Lymphatic: normal anterior cervical (L), normal anterior cervical (R), normal axillary (L), normal axillary (R), normal inguinal (L), normal inguinal (R), normal other, normal posterior cervical (L), normal posterior cervical (R), normal submandibular (L), normal submandibular (R), normal supraclavicular (L), normal supraclavicular (R) AILIN MEDEL Sep 01, 2016 16:24
[2016-09-01 16:39] VITALS: BP 106/68
[2016-09-01 20:38] VITALS: BP 110/70
[2016-09-02] VITALS: BP 110/55
[2016-09-02 04:00] VITALS: BP 104/70
--- NOTE | 2016-09-02 07:38 | General Progress Note ---
Assessment/Plan Problem List: (1) Mass of chest wall, left ICD Codes: R22.2 - Localized swelling, mass and lump, trunk SNOMED: 575974386 (2) Pneumonia ICD Codes: J18.9 - Pneumonia, unspecified organism SNOMED: 763573999 Status: stable, progressing, tolerating diet Assessment/Plan abx per id cbc bmp am dc plan Subjective Constitutional: Reports: weakness Allergies: Coded Allergies: No Known Allergies (Unverified , 08/13/16) All Systems: reviewed and negative except above Subjective calm no complaints Objective Last 24 Hour Vital Signs Date Time Temp Pulse Resp B/P Pulse Ox O2 Delivery O2 Flow Rate FiO2 09/02/16 04:00 98.1 71 19 104/70 99 Room Air 09/02/16 00:00 98.1 69 21 110/55 100 Room Air 09/01/16 20:38 98.1 69 19 110/70 97 Room Air 09/01/16 16:39 97.9 65 18 106/68 100 Room Air 09/01/16 12:00 98.2 64 19 110/75 100 Room Air 09/01/16 08:00 98.1 70 19 108/60 100 Room Air Intake and Output 09/01/16 09/02/16 19:00 07:00 Intake Total 860 ml 540 ml Output Total 5 ml Balance 855 ml 540 ml Intake Oral 460 ml 240 ml IV Total 400 ml 300 ml Other 5 ml # Voids 1 5 # Bowel Movements 1 Height (Feet): 5 Height (Inches): 9.00 Weight (Pounds): 125 General Appearance: alert EENT: normal ENT inspection Neck: normal alignment Cardiovascular: normal peripheral pulses, normal rate, regular rhythm Respiratory/Chest: chest wall non-tender, lungs clear, normal breath sounds Abdomen: normal bowel sounds, non tender, soft Extremities: normal inspection Edema: no edema noted Arm (L), no edema noted Arm (R), no edema noted Leg (L), no edema noted Leg (R), no edema noted Pedal (L), no edema noted Pedal (R), no edema noted Generalized Neurologic: responsive, motor weakness Skin: normal pigmentation, warm/dry Objective drain in left chest VALENTIN SCHRADER Sep 02, 2016 07:38
[2016-09-02 07:59] LABS: BASOPHILS % (AUTO) 0.7 % (0.0-2.0); EOSINOPHILS % (AUTO) 2.8 % (0.0-3.0); LYMPHOCYTES % (AUTO) 16.8 % (20.0-45.0); MEAN CORPUSCULAR HEMOGLOBIN 28.6 PG (27.0-31.0); MEAN CORPUSCULAR HGB CONC 32.9 G/DL (32.0-36.0); MEAN CORPUSCULAR VOLUME 87 FL (80-99); MEAN PLATELET VOLUME 5.9 FL (6.5-10.1); MONOCYTES % (AUTO) 6.6 % (1.0-10.0); NEUTROPHILS % (AUTO) 73.1 % (45.0-75.0); PLATELET COUNT 409 K/UL (150-450); RED BLOOD COUNT 4.11 M/UL (4.70-6.10); RED CELL DISTRIBUTION WIDTH 12.3 % (11.6-14.8); WHITE BLOOD COUNT 11.1 K/UL (4.8-10.8)
[2016-09-02 08:00] VITALS: BP 103/50
[2016-09-02 08:21] LABS: ALANINE AMINOTRANSFERASE 5 U/L (3-41); ALBUMIN/GLOBULIN RATIO 0.9 (1.0-2.7); ANION GAP 14 (5-15); ASPARTATE AMINO TRANSFERASE 8 U/L (5-40); CALCIUM 9.2 mg/dL (8.6-10.2); CARBON DIOXIDE 25 mEQ/L (20-30); CHLORIDE 103 mEQ/L (98-107); CREATININE 1.1 mg/dL (0.7-1.2); GLOMERULAR FILTRATION RATE > 60 mL/min (>60); HEMOLYSIS 1; POTASSIUM 4.4 mEQ/L (3.4-4.9); SODIUM 142 mEQ/L (135-145); TOTAL PROTEIN 6.5 g/dL (6.6-8.7)
[2016-09-02] MEDS: Heparin 5000 units/ml inj SUBQ SCH ×2 (09:00→21:00)
[2016-09-02] MEDS: Pyridoxine 50mg tab ORAL SCH (09:00)
[2016-09-02] MEDS: ETHAMBUTOL 100 MG ORAL SCH (09:00)
[2016-09-02] MEDS: Isoniazid 300mg tab ORAL SCH (09:00)
--- NOTE | 2016-09-02 11:53 | Nephrology Progress Note ---
Assessment/Plan Problem List: (1) Lipoma of anterior chest wall (2) Empyema lung (3) Sepsis (4) Chest wall abscess (5) Pneumonia (6) ROMAN (acute kidney injury) Plan Renal function-resolved Continue IVF ABX per ID TB treatment per ID Surg F/U Pulmo f/u Monitor I&O Avoid nephrotoxic agents Continue Isolation am labs Subjective Constitutional: Denies: chills, diaphoresis, fever, malaise, no symptoms, other , weakness HEENT: Denies: blurred vision, double vision, ear discharge, ear pain, eye pain , mouth pain, mouth swelling, no symptoms, nose congestion, nose pain, other, tearing, throat pain, throat swelling Genitourinary: Denies: burning, discharge, flank pain, frequency, hematuria, incontinence, no symptoms, other, pain, urgency Neurologic/Psychiatric: Denies: anxiety, depressed, emotional problems, headache, no symptoms, numbness, other, paresthesia, pre-existing deficit, seizure, tingling, tremors, weakness Subjective Denies discomfort, no overnight events Objective Objective Last 24 Hour Vital Signs Date Time Temp Pulse Resp B/P Pulse Ox O2 Delivery O2 Flow Rate FiO2 09/02/16 08:00 97.2 57 18 103/50 100 Room Air 09/02/16 04:00 98.1 71 19 104/70 99 Room Air 09/02/16 00:00 98.1 69 21 110/55 100 Room Air 09/01/16 20:38 98.1 69 19 110/70 97 Room Air 09/01/16 16:39 97.9 65 18 106/68 100 Room Air 09/01/16 12:00 98.2 64 19 110/75 100 Room Air Intake and Output 09/01/16 09/02/16 19:00 07:00 Intake Total 860 ml 540 ml Output Total 5 ml Balance 855 ml 540 ml Intake Oral 460 ml 240 ml IV Total 400 ml 300 ml Other 5 ml # Voids 1 5 # Bowel Movements 1 Laboratory Tests 09/02/16 07:35: White Blood Count 11.1H, Red Blood Count 4.11L, Hemoglobin 11.8L, Hematocrit 35.8L, Mean Corpuscular Volume 87, Mean Corpuscular Hemoglobin 28.6, Mean Corpuscular Hemoglobin Concent 32.9, Red Cell Distribution Width 12.3, Platelet Count 409, Mean Platelet Volume 5.9L, Neutrophils (%) (Auto) 73.1, Lymphocytes ( %) (Auto) 16.8L, Monocytes (%) (Auto) 6.6, Eosinophils (%) (Auto) 2.8, Basophils (%) (Auto) 0.7, Sodium Level 142, Potassium Level 4.4, Chloride Level 103, Carbon Dioxide Level 25, Anion Gap 14, Blood Urea Nitrogen 12, Creatinine 1.1, Estimat Glomerular Filtration Rate > 60, Glucose Level 95, Calcium Level 9.2, Total Bilirubin 0.3, Aspartate Amino Transf (AST/SGOT) 8, Alanine Aminotransferase (ALT/SGPT) 5, Alkaline Phosphatase 61, Total Protein 6.5L, Albumin 3.2L, Globulin 3.3, Albumin/Globulin Ratio 0.9L Height (Feet): 5 Height (Inches): 9.00 Weight (Pounds): 125 General Appearance: no apparent distress, alert EENT: normal ENT inspection Neck: non-tender, normal alignment, supple, normal inspection Cardiovascular: normal rate, regular rhythm Respiratory/Chest: normal breath sounds, no respiratory distress Abdomen: soft, no organomegaly, no mass Extremities: non-tender, normal inspection, no calf tenderness, normal capillary refill Neurologic: alert, oriented x 3, responsive, normal mood/affect Zeynep Presley N.P. Sep 02, 2016 11:53
[2016-09-02 12:03] VITALS: BP 104/61
--- NOTE | 2016-09-02 13:04 | General Progress Note ---
Assessment/Plan Assessment/Plan Assessment: # Anemia 2/2 chronic disease - currently stable # Leukocytosis likely 2/2 underlying infection # Thrombocytosis - 2/2 reactive process, slowly better # Chest well abscess - potentially TB related, biopsy of lung shows necrotizing granuloma # Empyema of the lung, potentially TB related # Sepsis # PNA # ROMAN - has improved Recs: - Monitor counts - Peripheral smear reviewed - Monitor coagulopathy - Anemia workup reviewed - ABx as needed - DVT ppx with heparin sq - F/u on pulm recs - Staff Sincerely, Steven Medel MD Subjective Constitutional: Reports: no symptoms HEENT: Reports: no symptoms Cardiovascular: Reports: no symptoms Respiratory: Reports: no symptoms Gastrointestinal/Abdominal: Reports: poor appetite Genitourinary: Reports: no symptoms Neurologic/Psychiatric: Reports: no symptoms Endocrine: Reports: no symptoms Hematologic/Lymphatic: Reports: anemia Allergies: Coded Allergies: No Known Allergies (Unverified , 08/13/16) Subjective stable, no fevers, chills or night sweats reported Objective Last 24 Hour Vital Signs Date Time Temp Pulse Resp B/P Pulse Ox O2 Delivery O2 Flow Rate FiO2 09/02/16 12:03 97.7 63 18 104/61 100 Room Air 09/02/16 08:00 97.2 57 18 103/50 100 Room Air 09/02/16 04:00 98.1 71 19 104/70 99 Room Air 09/02/16 00:00 98.1 69 21 110/55 100 Room Air 09/01/16 20:38 98.1 69 19 110/70 97 Room Air 09/01/16 16:39 97.9 65 18 106/68 100 Room Air Intake and Output 09/01/16 09/02/16 19:00 07:00 Intake Total 860 ml 540 ml Output Total 5 ml Balance 855 ml 540 ml Intake Oral 460 ml 240 ml IV Total 400 ml 300 ml Other 5 ml # Voids 1 5 # Bowel Movements 1 Laboratory Tests 09/02/16 07:35: White Blood Count 11.1H, Red Blood Count 4.11L, Hemoglobin 11.8L, Hematocrit 35.8L, Mean Corpuscular Volume 87, Mean Corpuscular Hemoglobin 28.6, Mean Corpuscular Hemoglobin Concent 32.9, Red Cell Distribution Width 12.3, Platelet Count 409, Mean Platelet Volume 5.9L, Neutrophils (%) (Auto) 73.1, Lymphocytes ( %) (Auto) 16.8L, Monocytes (%) (Auto) 6.6, Eosinophils (%) (Auto) 2.8, Basophils (%) (Auto) 0.7, Sodium Level 142, Potassium Level 4.4, Chloride Level 103, Carbon Dioxide Level 25, Anion Gap 14, Blood Urea Nitrogen 12, Creatinine 1.1, Estimat Glomerular Filtration Rate > 60, Glucose Level 95, Calcium Level 9.2, Total Bilirubin 0.3, Aspartate Amino Transf (AST/SGOT) 8, Alanine Aminotransferase (ALT/SGPT) 5, Alkaline Phosphatase 61, Total Protein 6.5L, Albumin 3.2L, Globulin 3.3, Albumin/Globulin Ratio 0.9L Height (Feet): 5 Height (Inches): 9.00 Weight (Pounds): 125 General Appearance: no apparent distress EENT: TMs normal Neck: supple Cardiovascular: regular rhythm Respiratory/Chest: chest wall non-tender Abdomen: normal bowel sounds Extremities: non-tender Edema: 1+ Leg (L), 1+ Leg (R) Edema: mild edema Neurologic: alert Skin: warm/dry Steven Medel Sep 02, 2016 13:04
[2016-09-02 16:00] VITALS: BP 99/49
[2016-09-02] MEDS ORDERED: 1/2 NS 1000ml IV ONE ×2 (16:41)
[2016-09-02 20:00] VITALS: BP 98/47
[2016-09-03] VITALS: BP 106/45
[2016-09-03 04:00] VITALS: BP 104/44
[2016-09-03 08:00] VITALS: BP 106/66
[2016-09-03 08:09] LABS: BASOPHILS % (AUTO) 0.7 % (0.0-2.0); LYMPHOCYTES % (AUTO) 16.9 % (20.0-45.0); MEAN CORPUSCULAR HEMOGLOBIN 29.3 PG (27.0-31.0); MEAN CORPUSCULAR HGB CONC 33.5 G/DL (32.0-36.0); MEAN CORPUSCULAR VOLUME 87 FL (80-99); MEAN PLATELET VOLUME 5.9 FL (6.5-10.1); NEUTROPHILS % (AUTO) 72.4 % (45.0-75.0); PLATELET COUNT 402 K/UL (150-450); RED BLOOD COUNT 4.16 M/UL (4.70-6.10); RED CELL DISTRIBUTION WIDTH 12.4 % (11.6-14.8); WHITE BLOOD COUNT 10.4 K/UL (4.8-10.8)
[2016-09-03 08:24] LABS: ALANINE AMINOTRANSFERASE 5 U/L (3-41); ANION GAP 16 (5-15); ASPARTATE AMINO TRANSFERASE 9 U/L (5-40); CALCIUM 8.9 mg/dL (8.6-10.2); CARBON DIOXIDE 25 mEQ/L (20-30); CHLORIDE 100 mEQ/L (98-107); CREATININE 1.1 mg/dL (0.7-1.2); GLOMERULAR FILTRATION RATE > 60 mL/min (>60); HEMOLYSIS 3; POTASSIUM 4.6 mEQ/L (3.4-4.9); SODIUM 141 mEQ/L (135-145); TOTAL PROTEIN 6.5 g/dL (6.6-8.7)
[2016-09-03] MEDS: Pyridoxine 50mg tab ORAL SCH (09:06)
[2016-09-03] MEDS: ETHAMBUTOL 100 MG ORAL SCH (09:07)
[2016-09-03] MEDS: Isoniazid 300mg tab ORAL SCH (09:07)
[2016-09-03] MEDS: Heparin 5000 units/ml inj SUBQ SCH ×2 (09:13→21:00)
--- NOTE | 2016-09-03 11:08 | General Progress Note ---
Assessment/Plan Assessment/Plan Assessment: # Anemia 2/2 chronic disease - currently improved, >11.5 # Leukocytosis likely 2/2 underlying infection # Thrombocytosis - 2/2 reactive process, slowly better # Chest well abscess - potentially TB related, biopsy of lung shows necrotizing granuloma # Empyema of the lung, potentially TB related # Sepsis # PNA # ROMAN - has improved Recs: - Monitor counts - Peripheral smear reviewed - Monitor coagulopathy - Anemia workup reviewed - ABx as needed - DVT ppx with heparin sq - F/u on pulm recs - DW Staff Thank you, Steven Medel MD Subjective Constitutional: Reports: no symptoms HEENT: Reports: no symptoms Cardiovascular: Reports: no symptoms Respiratory: Reports: no symptoms Gastrointestinal/Abdominal: Reports: nausea Genitourinary: Reports: no symptoms Neurologic/Psychiatric: Reports: no symptoms Endocrine: Reports: no symptoms Hematologic/Lymphatic: Reports: anemia Allergies: Coded Allergies: No Known Allergies (Unverified , 08/13/16) Subjective stable, no fevers, not bleeding Objective Last 24 Hour Vital Signs Date Time Temp Pulse Resp B/P Pulse Ox O2 Delivery O2 Flow Rate FiO2 09/03/16 08:00 97.7 65 20 106/66 100 Room Air 09/03/16 04:00 97.9 66 18 104/44 98 Room Air 09/03/16 00:00 98.2 73 18 106/45 99 Room Air 09/02/16 20:00 97.5 64 19 98/47 93 Room Air 09/02/16 16:00 97.3 70 20 99/49 99 Room Air 09/02/16 12:03 97.7 63 18 104/61 100 Room Air Intake and Output 09/02/16 09/03/16 19:00 07:00 Intake Total 2180 ml 1265 ml Output Total 13 ml Balance 2180 ml 1252 ml Intake Oral 1080 ml 360 ml IV Total 1100 ml 900 ml Other 5 ml Other 13 ml # Voids 4 3 Laboratory Tests 09/03/16 07:55: White Blood Count 10.4, Red Blood Count 4.16L, Hemoglobin 12.2L, Hematocrit 36.4L, Mean Corpuscular Volume 87, Mean Corpuscular Hemoglobin 29.3, Mean Corpuscular Hemoglobin Concent 33.5, Red Cell Distribution Width 12.4, Platelet Count 402, Mean Platelet Volume 5.9L, Neutrophils (%) (Auto) 72.4, Lymphocytes ( %) (Auto) 16.9L, Monocytes (%) (Auto) 7.0, Eosinophils (%) (Auto) 3.0, Basophils (%) (Auto) 0.7, Sodium Level 141, Potassium Level 4.6, Chloride Level 100, Carbon Dioxide Level 25, Anion Gap 16H, Blood Urea Nitrogen 10, Creatinine 1.1, Estimat Glomerular Filtration Rate > 60, Glucose Level 91, Calcium Level 8.9, Total Bilirubin 0.3, Aspartate Amino Transf (AST/SGOT) 9, Alanine Aminotransferase (ALT/SGPT) 5, Alkaline Phosphatase 62, Total Protein 6.5L, Albumin 3.3L, Globulin 3.2, Albumin/Globulin Ratio 1.0 Height (Feet): 5 Height (Inches): 9.00 Weight (Pounds): 125 General Appearance: no apparent distress EENT: TMs normal Neck: normal alignment Cardiovascular: normal rate Respiratory/Chest: chest wall non-tender Abdomen: non tender Extremities: non-tender Edema: mild edema Neurologic: alert Skin: warm/dry Steven Medel Sep 03, 2016 11:07
--- NOTE | 2016-09-03 11:52 | Nephrology Progress Note ---
Assessment/Plan Problem List: (1) Lipoma of anterior chest wall (2) Empyema lung (3) Sepsis (4) Chest wall abscess (5) Pneumonia (6) ROMAN (acute kidney injury) Plan Renal function-resolved Continue IVF ABX per ID TB treatment per ID Surg F/U Pulmo f/u Monitor I&O Avoid nephrotoxic agents Continue Isolation am labs Subjective Constitutional: Denies: chills, diaphoresis, fever, malaise, no symptoms, other , weakness HEENT: Denies: blurred vision, double vision, ear discharge, ear pain, eye pain , mouth pain, mouth swelling, no symptoms, nose congestion, nose pain, other, tearing, throat pain, throat swelling Genitourinary: Denies: burning, discharge, flank pain, frequency, hematuria, incontinence, no symptoms, other, pain, urgency Subjective Denies discomfort, no overnight events Objective Objective Last 24 Hour Vital Signs Date Time Temp Pulse Resp B/P Pulse Ox O2 Delivery O2 Flow Rate FiO2 09/03/16 08:00 97.7 65 20 106/66 100 Room Air 09/03/16 04:00 97.9 66 18 104/44 98 Room Air 09/03/16 00:00 98.2 73 18 106/45 99 Room Air 09/02/16 20:00 97.5 64 19 98/47 93 Room Air 09/02/16 16:00 97.3 70 20 99/49 99 Room Air 09/02/16 12:03 97.7 63 18 104/61 100 Room Air Intake and Output 09/02/16 09/03/16 19:00 07:00 Intake Total 2180 ml 1265 ml Output Total 13 ml Balance 2180 ml 1252 ml Intake Oral 1080 ml 360 ml IV Total 1100 ml 900 ml Other 5 ml Other 13 ml # Voids 4 3 Laboratory Tests 09/03/16 07:55: White Blood Count 10.4, Red Blood Count 4.16L, Hemoglobin 12.2L, Hematocrit 36.4L, Mean Corpuscular Volume 87, Mean Corpuscular Hemoglobin 29.3, Mean Corpuscular Hemoglobin Concent 33.5, Red Cell Distribution Width 12.4, Platelet Count 402, Mean Platelet Volume 5.9L, Neutrophils (%) (Auto) 72.4, Lymphocytes ( %) (Auto) 16.9L, Monocytes (%) (Auto) 7.0, Eosinophils (%) (Auto) 3.0, Basophils (%) (Auto) 0.7, Sodium Level 141, Potassium Level 4.6, Chloride Level 100, Carbon Dioxide Level 25, Anion Gap 16H, Blood Urea Nitrogen 10, Creatinine 1.1, Estimat Glomerular Filtration Rate > 60, Glucose Level 91, Calcium Level 8.9, Total Bilirubin 0.3, Aspartate Amino Transf (AST/SGOT) 9, Alanine Aminotransferase (ALT/SGPT) 5, Alkaline Phosphatase 62, Total Protein 6.5L, Albumin 3.3L, Globulin 3.2, Albumin/Globulin Ratio 1.0 Height (Feet): 5 Height (Inches): 9.00 Weight (Pounds): 125 General Appearance: no apparent distress, alert EENT: normal ENT inspection Neck: normal alignment, supple, normal inspection Cardiovascular: normal rate, regular rhythm, no JVD Respiratory/Chest: normal breath sounds, no respiratory distress Abdomen: non tender, soft, no organomegaly, no mass Extremities: normal range of motion, non-tender, normal inspection, no calf tenderness Neurologic: alert, oriented x 3, responsive, normal mood/affect Zeynep Presley N.P. Sep 03, 2016 11:52
[2016-09-03 12:00] VITALS: BP 102/47
--- NOTE | 2016-09-03 13:27 | General Progress Note ---
Assessment/Plan Problem List: (1) Mass of chest wall, left ICD Codes: R22.2 - Localized swelling, mass and lump, trunk SNOMED: 605596332 (2) Pneumonia ICD Codes: J18.9 - Pneumonia, unspecified organism SNOMED: 687823981 Status: stable, progressing, tolerating diet Assessment/Plan abx per id cbc bmp am dc plan Subjective Constitutional: Reports: weakness Allergies: Coded Allergies: No Known Allergies (Unverified , 08/13/16) All Systems: reviewed and negative except above Subjective calm no complaints Objective Last 24 Hour Vital Signs Date Time Temp Pulse Resp B/P Pulse Ox O2 Delivery O2 Flow Rate FiO2 09/03/16 12:00 96.3 64 20 102/47 100 Room Air 09/03/16 08:00 97.7 65 20 106/66 100 Room Air 09/03/16 04:00 97.9 66 18 104/44 98 Room Air 09/03/16 00:00 98.2 73 18 106/45 99 Room Air 09/02/16 20:00 97.5 64 19 98/47 93 Room Air 09/02/16 16:00 97.3 70 20 99/49 99 Room Air Intake and Output 09/02/16 09/03/16 19:00 07:00 Intake Total 2180 ml 1265 ml Output Total 13 ml Balance 2180 ml 1252 ml Intake Oral 1080 ml 360 ml IV Total 1100 ml 900 ml Other 5 ml Other 13 ml # Voids 4 3 Laboratory Tests 09/03/16 07:55: White Blood Count 10.4, Red Blood Count 4.16L, Hemoglobin 12.2L, Hematocrit 36.4L, Mean Corpuscular Volume 87, Mean Corpuscular Hemoglobin 29.3, Mean Corpuscular Hemoglobin Concent 33.5, Red Cell Distribution Width 12.4, Platelet Count 402, Mean Platelet Volume 5.9L, Neutrophils (%) (Auto) 72.4, Lymphocytes ( %) (Auto) 16.9L, Monocytes (%) (Auto) 7.0, Eosinophils (%) (Auto) 3.0, Basophils (%) (Auto) 0.7, Sodium Level 141, Potassium Level 4.6, Chloride Level 100, Carbon Dioxide Level 25, Anion Gap 16H, Blood Urea Nitrogen 10, Creatinine 1.1, Estimat Glomerular Filtration Rate > 60, Glucose Level 91, Calcium Level 8.9, Total Bilirubin 0.3, Aspartate Amino Transf (AST/SGOT) 9, Alanine Aminotransferase (ALT/SGPT) 5, Alkaline Phosphatase 62, Total Protein 6.5L, Albumin 3.3L, Globulin 3.2, Albumin/Globulin Ratio 1.0 Height (Feet): 5 Height (Inches): 9.00 Weight (Pounds): 125 General Appearance: alert EENT: normal ENT inspection Neck: normal alignment Cardiovascular: normal peripheral pulses, normal rate, regular rhythm Respiratory/Chest: chest wall non-tender, lungs clear, decreased breath sounds Abdomen: normal bowel sounds, non tender, soft Extremities: normal inspection Edema: no edema noted Arm (L), no edema noted Arm (R), no edema noted Leg (L), no edema noted Leg (R), no edema noted Pedal (L), no edema noted Pedal (R), no edema noted Generalized Neurologic: responsive, motor weakness Skin: normal pigmentation, warm/dry Objective drain in left chest VALENTIN SCHRADER Sep 03, 2016 13:27
[2016-09-03 16:15] VITALS: BP 91/47
--- NOTE | 2016-09-03 16:34 | Infectious Diseases Prog Note ---
Assessment/Plan Problems: (1) Chest wall abscess Assessment & Plan: most likely related to TB, had I&D, with minimal drainage out of it today, ok to remove drainage , will notify IR. fluid culture was negative for any bacterial growth , serology is negative for fungal etiology , T spot test is positive which is suggestive of TB infection, since no alternative diagnosis to explain it, started on four drugs regimen for TB. tolerated well the medications , notified [facility]. keep in airborne isolation for now (2) Empyema lung Assessment & Plan: suspect TB related , had lung biopsy with pathology showed necrotizing granuloma suggestive of TB , not Angel granulomatous , since his ANCA titer was negative , started on four drugs regimen for TB. discussed with [facility] Dr Garza , will send lung biopsy to [facility] for PCR, agreed on TB treatment for now. (3) Sepsis Assessment & Plan: due to the above, on wide spectrum antibiotics coverage, await culture (4) Pneumonia Assessment & Plan: suspect pulmonary TB, had lung biopsy which showed necrotizing granuloma, suggesting TB too . sputum for AFB x 3 are negative so far and culture is pending. will continue four drugs regimen for TB treatment , notified [facility], who agreed on the plan .they will coordinate his discharge plan of care with us. (5) ROMAN (acute kidney injury) Assessment & Plan: improving, continue IVF for hydration and monitor renal function, avoid nephrotoxic meds Subjective Constitutional: Denies: anorexia, chills, drenching sweats, fatigue, fever, no symptoms, other HEENT: Denies: congestion, coryza, dysphagia, hearing change, no symptoms, other, visual change Respiratory: Denies: dry cough, no symptoms, other, productive cough, shortness of breath Breasts: Denies: discharge, no symptoms, other, swelling, tenderness Cardiovascular: Denies: chest pain, dyspnea on exertion, no symptoms, other, palpitations Gastrointestinal/Abdominal: Denies: bloating, blood in stool, constipation, diarrhea, nausea, no symptoms, other, vomiting Genitourinary: Denies: dysuria, frequency, hematuria, no symptoms, nocturia, other Neurologic: Denies: confusion, headache, no symptoms, numbness, other, weakness Psychiatric: Denies: anxiety, depression, no symptoms, other Skin: Denies: no symptoms, other, rash, ulcer Endocrine: Denies: feels cold, feels warm, no symptoms, other Allergies: Coded Allergies: No Known Allergies (Unverified , 08/13/16) Subjective he tolerated oral intake well. no chest pain or SOB.still has surgical drainage in place for the left chest wall abscess Objective Vital Signs Last 24 Hour Vital Signs Date Time Temp Pulse Resp B/P Pulse Ox O2 Delivery O2 Flow Rate FiO2 09/03/16 16:15 96.3 78 19 91/47 100 Room Air 09/03/16 12:00 96.3 64 20 102/47 100 Room Air 09/03/16 08:00 97.7 65 20 106/66 100 Room Air 09/03/16 04:00 97.9 66 18 104/44 98 Room Air 09/03/16 00:00 98.2 73 18 106/45 99 Room Air 09/02/16 20:00 97.5 64 19 98/47 93 Room Air Height (Feet): 5 Height (Inches): 9.00 Weight (Pounds): 125 General Appearance: WD/WN, no acute distress HEENT: normocephalic, atraumatic, anicteric, mucous membranes moist Respiratory/Chest: lungs clear, normal breath sounds, no respiratory distress, no accessory muscle use, decreased breath sounds Cardiovascular: normal peripheral pulses, normal rate, regular rhythm, no gallop/murmur Abdomen: normal bowel sounds, soft, non tender, no organomegaly, non distended , no mass Extremities: no cyanosis, no clubbing Skin: no rash, no lesions, no ulcers Microbiology Date/Time Source Procedure Growth Status 09/01/16 02:00 Sputum AFB Specimen Processing Tissue - Final Resulted 09/01/16 02:00 Sputum Acid Fast Bacilli Smear - Final Resulted 09/01/16 02:00 Sputum Acid Fast Bacilli Culture Pending Resulted Laboratory Tests Test 09/03/16 07:55 White Blood Count 10.4 K/UL (4.8-10.8) Red Blood Count 4.16 M/UL (4.70-6.10) L Hemoglobin 12.2 G/DL (14.2-18.0) L Hematocrit 36.4 % (42.0-52.0) L Mean Corpuscular Volume 87 FL (80-99) Mean Corpuscular Hemoglobin 29.3 PG (27.0-31.0) Mean Corpuscular Hemoglobin Concent 33.5 G/DL (32.0-36.0) Red Cell Distribution Width 12.4 % (11.6-14.8) Platelet Count 402 K/UL (150-450) Mean Platelet Volume 5.9 FL (6.5-10.1) L Neutrophils (%) (Auto) 72.4 % (45.0-75.0) Lymphocytes (%) (Auto) 16.9 % (20.0-45.0) L Monocytes (%) (Auto) 7.0 % (1.0-10.0) Eosinophils (%) (Auto) 3.0 % (0.0-3.0) Basophils (%) (Auto) 0.7 % (0.0-2.0) Sodium Level 141 mEQ/L (135-145) Potassium Level 4.6 mEQ/L (3.4-4.9) Chloride Level 100 mEQ/L (98-107) Carbon Dioxide Level 25 mEQ/L (20-30) Anion Gap 16 (5-15) H Blood Urea Nitrogen 10 mg/dL (7-23) Creatinine 1.1 mg/dL (0.7-1.2) Estimat Glomerular Filtration Rate > 60 mL/min (>60) Glucose Level 91 mg/dL (74-106) Calcium Level 8.9 mg/dL (8.6-10.2) Total Bilirubin 0.3 mg/dL (0.0-1.2) Aspartate Amino Transf (AST/SGOT) 9 U/L (5-40) Alanine Aminotransferase (ALT/SGPT) 5 U/L (3-41) Alkaline Phosphatase 62 U/L (40-129) Total Protein 6.5 g/dL (6.6-8.7) L Albumin 3.3 g/dL (3.5-5.2) L Globulin 3.2 g/dL Albumin/Globulin Ratio 1.0 (1.0-2.7) Current Medications Medications (Trade) Dose Ordered Sig/Patricia Route PRN Reason Start Time Stop Time Status Last Admin Dose Admin Acetaminophen (Tylenol) 650 mg Q4H PRN ORAL T>100.5 08/20/16 06:30 09/19/16 06:29 08/30/16 20:52 Al Hydroxide/Mg Hydroxide (Mylanta II) 30 ml Q6H PRN ORAL dyspepsia 08/20/16 06:30 09/19/16 06:29 08/26/16 21:18 Dextrose STAT PRN IV Hypoglycemia 08/20/16 06:30 09/19/16 06:29 Ethambutol HCl (Myambutol) 50 mg DAILY ORAL 08/30/16 09:00 09/29/16 08:59 09/03/16 09:07 Ethambutol HCl (Myambutol) 800 mg DAILY ORAL 08/30/16 09:00 09/29/16 08:59 09/03/16 09:06 Heparin Sodium (Porcine) (Heparin 5000 units/ml) 5,000 units EVERY 12 HOURS SUBQ 08/20/16 09:00 09/19/16 08:59 09/03/16 09:13 Isoniazid (Inh) 300 mg DAILY ORAL 08/30/16 09:00 09/29/16 08:59 09/03/16 09:07 Ondansetron HCl (Zofran) 4 mg Q6H PRN IVP Nausea & Vomiting 08/20/16 06:30 09/19/16 06:29 08/27/16 21:57 Polyethylene Glycol (Miralax) 17 gm HSPRN PRN ORAL Constipation 08/20/16 21:00 09/19/16 20:59 Pyrazinamide (Pza) 1,000 mg DAILY ORAL 08/30/16 09:00 09/29/16 08:59 09/03/16 09:06 Pyridoxine HCl (Vitamin B6) 50 mg DAILY ORAL 08/30/16 09:00 09/29/16 08:59 09/03/16 09:06 Rifampin (Rifadin) 600 mg DAILY ORAL 08/30/16 17:00 09/29/16 16:59 09/03/16 09:07 Sodium Chloride (0.45% NS 1000ml) 1,000 ml @ 100 mls/hr Q10H IV 08/25/16 11:00 09/24/16 10:59 09/03/16 14:34 Zolpidem Tartrate (Ambien) 5 mg HSPRN PRN ORAL Insomnia 08/20/16 21:00 09/19/16 20:59 Srikanth Costello M.D. Sep 03, 2016 16:34
[2016-09-03 20:37] VITALS: BP 106/71
[2016-09-04] VITALS: BP 113/68
[2016-09-04 04:00] VITALS: BP 99/50
[2016-09-04 06:58] LABS: BASOPHILS % (AUTO) 0.7 % (0.0-2.0); EOSINOPHILS % (AUTO) 3.2 % (0.0-3.0); LYMPHOCYTES % (AUTO) 20.2 % (20.0-45.0); MEAN CORPUSCULAR HEMOGLOBIN 29.4 PG (27.0-31.0); MEAN CORPUSCULAR HGB CONC 32.6 G/DL (32.0-36.0); MEAN CORPUSCULAR VOLUME 90 FL (80-99); MEAN PLATELET VOLUME 5.4 FL (6.5-10.1); PLATELET COUNT 342 K/UL (150-450); RED CELL DISTRIBUTION WIDTH 12.2 % (11.6-14.8); WHITE BLOOD COUNT 10.2 K/UL (4.8-10.8)
[2016-09-04 07:07] LABS: ALANINE AMINOTRANSFERASE 5 U/L (3-41); ANION GAP 14 (5-15); ASPARTATE AMINO TRANSFERASE 9 U/L (5-40); CALCIUM 8.8 mg/dL (8.6-10.2); CARBON DIOXIDE 26 mEQ/L (20-30); CHLORIDE 102 mEQ/L (98-107); CREATININE 0.9 mg/dL (0.7-1.2); GLOMERULAR FILTRATION RATE > 60 mL/min (>60); HEMOLYSIS 2; POTASSIUM 4.2 mEQ/L (3.4-4.9); SODIUM 142 mEQ/L (135-145); TOTAL PROTEIN 6.2 g/dL (6.6-8.7)
[2016-09-04] MEDS: Pyridoxine 50mg tab ORAL SCH (08:32)
[2016-09-04] MEDS: Isoniazid 300mg tab ORAL SCH (08:33)
[2016-09-04] MEDS: ETHAMBUTOL 100 MG ORAL SCH (08:33)
[2016-09-04] MEDS: Heparin 5000 units/ml inj SUBQ SCH ×2 (08:33→21:00)
[2016-09-04 08:56] VITALS: BP 102/52
[2016-09-04 12:07] VITALS: BP 103/50
--- NOTE | 2016-09-04 15:09 | General Progress Note ---
Assessment/Plan Assessment/Plan Assessment: # Anemia 2/2 chronic disease - currently improved, >11.0 # Leukocytosis likely 2/2 underlying infection # Thrombocytosis - 2/2 reactive process, slowly better # Chest well abscess - potentially TB related, biopsy of lung shows necrotizing granuloma # Empyema of the lung, potentially TB related # Sepsis # PNA # ROMAN - has improved Recs: - Monitor counts - Peripheral smear reviewed - Monitor coagulopathy - Anemia workup reviewed - ABx as needed - DVT ppx with heparin sq - F/u on pulm, ID recs - DW Staff Thank you, Steven Medel MD Subjective Constitutional: Reports: no symptoms HEENT: Reports: no symptoms Cardiovascular: Reports: no symptoms Respiratory: Reports: no symptoms Gastrointestinal/Abdominal: Reports: poor appetite Genitourinary: Reports: no symptoms Neurologic/Psychiatric: Reports: no symptoms Endocrine: Reports: no symptoms Hematologic/Lymphatic: Reports: anemia Allergies: Coded Allergies: No Known Allergies (Unverified , 08/13/16) Subjective stable, no fevers, not bleeding at this time Objective Last 24 Hour Vital Signs Date Time Temp Pulse Resp B/P Pulse Ox O2 Delivery O2 Flow Rate FiO2 09/04/16 12:07 97.3 70 15 103/50 100 Room Air 09/04/16 08:56 97.0 63 15 102/52 99 Room Air 09/04/16 04:00 98.2 75 18 99/50 98 Room Air 09/04/16 00:00 97.5 77 18 113/68 99 Room Air 09/03/16 20:37 98.1 77 18 106/71 98 Room Air 09/03/16 16:15 96.3 78 19 91/47 100 Room Air Intake and Output 09/03/16 09/04/16 19:00 07:00 Intake Total 2540 ml 1430 ml Output Total 10 ml 18 ml Balance 2530 ml 1412 ml Intake Oral 1240 ml 620 ml IV Total 1300 ml 800 ml Other 10 ml Other 10 ml 18 ml # Voids 4 4 # Bowel Movements 1 Laboratory Tests 09/04/16 05:25: White Blood Count 10.2, Red Blood Count 3.80L, Hemoglobin 11.2L, Hematocrit 34.3L, Mean Corpuscular Volume 90, Mean Corpuscular Hemoglobin 29.4, Mean Corpuscular Hemoglobin Concent 32.6, Red Cell Distribution Width 12.2, Platelet Count 342, Mean Platelet Volume 5.4L, Neutrophils (%) (Auto) 72.0, Lymphocytes ( %) (Auto) 20.2, Monocytes (%) (Auto) 4.0, Eosinophils (%) (Auto) 3.2H, Basophils (%) (Auto) 0.7, Sodium Level 142, Potassium Level 4.2, Chloride Level 102, Carbon Dioxide Level 26, Anion Gap 14, Blood Urea Nitrogen 7, Creatinine 0.9, Estimat Glomerular Filtration Rate > 60, Glucose Level 96, Calcium Level 8.8, Total Bilirubin 0.3, Aspartate Amino Transf (AST/SGOT) 9, Alanine Aminotransferase (ALT/SGPT) 5, Alkaline Phosphatase 67, Total Protein 6.2L, Albumin 3.1L, Globulin 3.1, Albumin/Globulin Ratio 1.0, Coccidioides Antibody ( Comp Fix) [Pending] Height (Feet): 5 Height (Inches): 9.00 Weight (Pounds): 125 General Appearance: no apparent distress EENT: TMs normal Neck: normal inspection Cardiovascular: regular rhythm Respiratory/Chest: no respiratory distress Abdomen: no organomegaly Extremities: non-tender Edema: no edema noted Leg (L), no edema noted Leg (R) Edema: mild edema Neurologic: no motor/sensory deficits Skin: warm/dry Steven Medel Sep 04, 2016 15:09
--- NOTE | 2016-09-04 15:28 | General Progress Note ---
Assessment/Plan Problem List: (1) Mass of chest wall, left ICD Codes: R22.2 - Localized swelling, mass and lump, trunk SNOMED: 193903671 (2) Pneumonia ICD Codes: J18.9 - Pneumonia, unspecified organism SNOMED: 103563052 Status: stable, progressing, tolerating diet Assessment/Plan abx per id cbc bmp am dc plan Subjective Constitutional: Reports: weakness Allergies: Coded Allergies: No Known Allergies (Unverified , 08/13/16) All Systems: reviewed and negative except above Subjective calm no complaints Objective Last 24 Hour Vital Signs Date Time Temp Pulse Resp B/P Pulse Ox O2 Delivery O2 Flow Rate FiO2 09/04/16 12:07 97.3 70 15 103/50 100 Room Air 09/04/16 08:56 97.0 63 15 102/52 99 Room Air 09/04/16 04:00 98.2 75 18 99/50 98 Room Air 09/04/16 00:00 97.5 77 18 113/68 99 Room Air 09/03/16 20:37 98.1 77 18 106/71 98 Room Air 09/03/16 16:15 96.3 78 19 91/47 100 Room Air Intake and Output 09/03/16 09/04/16 19:00 07:00 Intake Total 2540 ml 1430 ml Output Total 10 ml 18 ml Balance 2530 ml 1412 ml Intake Oral 1240 ml 620 ml IV Total 1300 ml 800 ml Other 10 ml Other 10 ml 18 ml # Voids 4 4 # Bowel Movements 1 Laboratory Tests 09/04/16 05:25: White Blood Count 10.2, Red Blood Count 3.80L, Hemoglobin 11.2L, Hematocrit 34.3L, Mean Corpuscular Volume 90, Mean Corpuscular Hemoglobin 29.4, Mean Corpuscular Hemoglobin Concent 32.6, Red Cell Distribution Width 12.2, Platelet Count 342, Mean Platelet Volume 5.4L, Neutrophils (%) (Auto) 72.0, Lymphocytes ( %) (Auto) 20.2, Monocytes (%) (Auto) 4.0, Eosinophils (%) (Auto) 3.2H, Basophils (%) (Auto) 0.7, Sodium Level 142, Potassium Level 4.2, Chloride Level 102, Carbon Dioxide Level 26, Anion Gap 14, Blood Urea Nitrogen 7, Creatinine 0.9, Estimat Glomerular Filtration Rate > 60, Glucose Level 96, Calcium Level 8.8, Total Bilirubin 0.3, Aspartate Amino Transf (AST/SGOT) 9, Alanine Aminotransferase (ALT/SGPT) 5, Alkaline Phosphatase 67, Total Protein 6.2L, Albumin 3.1L, Globulin 3.1, Albumin/Globulin Ratio 1.0, Coccidioides Antibody ( Comp Fix) [Pending] Height (Feet): 5 Height (Inches): 9.00 Weight (Pounds): 125 General Appearance: alert EENT: normal ENT inspection Neck: normal alignment Cardiovascular: normal peripheral pulses, normal rate, regular rhythm Respiratory/Chest: chest wall non-tender, lungs clear, decreased breath sounds Abdomen: normal bowel sounds, non tender, soft Extremities: normal inspection Edema: no edema noted Arm (L), no edema noted Arm (R), no edema noted Leg (L), no edema noted Leg (R), no edema noted Pedal (L), no edema noted Pedal (R), no edema noted Generalized Neurologic: responsive, motor weakness Skin: normal pigmentation, warm/dry Objective drain in left chest VALENTIN SCHRADER Sep 04, 2016 15:27
[2016-09-04 16:09] VITALS: BP 100/49
[2016-09-04 20:26] VITALS: BP 110/60
--- NOTE | 2016-09-04 22:03 | Infectious Diseases Prog Note ---
Assessment/Plan Problems: (1) Chest wall abscess Assessment & Plan: most likely related to TB, had I&D , with fluid culture was negative for any bacterial growth , serology is negative for fungal etiology , T spot test is positive which is suggestive of TB infection, since [place] , immigrated a year ago to [facility], no alternative diagnosis to explain it, other work up has been negative , he was started on four drugs regimen for TB. he tolerated well the medications , notified IVÁN. keep in airborne isolation for now, further recommendation as per IV[facility]N. 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 (2) Empyema lung Assessment & Plan: suspect TB related , had lung biopsy with pathology showed necrotizing granuloma suggestive of TB , not Angel granulomatous , since his ANCA titer was negative ,nor fungal since his serology is negative for fungal infection, so most likely TB , he was started on four drugs regimen for TB. discussed with [facility], Dr Garza , who will send lung biopsy to [facility] for PCR, and agreed on TB treatment for now. (3) Pneumonia Assessment & Plan: suspect pulmonary TB, had lung biopsy which showed necrotizing granuloma, suggesting TB too . sputum for AFB x 3 are negative so far and culture is pending. will continue four drugs regimen for TB treatment , notified [facility], who agreed on the plan .they will coordinate his discharge plan of care with us. (4) ROMAN (acute kidney injury) Assessment & Plan: improving, continue IVF for hydration and monitor renal function, avoid nephrotoxic meds Subjective Constitutional: Denies: anorexia, chills, drenching sweats, fatigue, fever, no symptoms, other HEENT: Denies: congestion, coryza, dysphagia, hearing change, no symptoms, other, visual change Respiratory: Denies: dry cough, no symptoms, other, productive cough, shortness of breath Breasts: Denies: discharge, no symptoms, other, swelling, tenderness Cardiovascular: Denies: chest pain, dyspnea on exertion, no symptoms, other, palpitations Gastrointestinal/Abdominal: Denies: bloating, blood in stool, constipation, diarrhea, nausea, no symptoms, other, vomiting Genitourinary: Denies: dysuria, frequency, hematuria, no symptoms, nocturia, other Neurologic: Denies: confusion, headache, no symptoms, numbness, other, weakness Psychiatric: Denies: anxiety, depression, no symptoms, other Skin: Denies: no symptoms, other, rash, ulcer Endocrine: Denies: feels cold, feels warm, no symptoms, other Allergies: Coded Allergies: No Known Allergies (Unverified , 08/13/16) Subjective he tolerated oral intake well. no chest pain or SOB. no rash or itching. Objective Vital Signs Last 24 Hour Vital Signs Date Time Temp Pulse Resp B/P Pulse Ox O2 Delivery O2 Flow Rate FiO2 09/04/16 20:26 98.1 75 18 110/60 98 Room Air 09/04/16 16:09 97.9 69 19 100/49 100 Room Air 09/04/16 12:07 97.3 70 15 103/50 100 Room Air 09/04/16 08:56 97.0 63 15 102/52 99 Room Air 09/04/16 04:00 98.2 75 18 99/50 98 Room Air 09/04/16 00:00 97.5 77 18 113/68 99 Room Air Height (Feet): 5 Height (Inches): 9.00 Weight (Pounds): 125 General Appearance: WD/WN, no acute distress, cachetic HEENT: normocephalic, atraumatic, anicteric, mucous membranes moist, PERRL Respiratory/Chest: chest wall non-tender, lungs clear, no respiratory distress , no accessory muscle use, decreased breath sounds Cardiovascular: normal peripheral pulses, normal rate, regular rhythm, regularly irregular, no gallop/murmur, no JVD Abdomen: normal bowel sounds, soft, non tender, no organomegaly, non distended , no mass, no scars Extremities: no cyanosis, no clubbing Skin: no rash, no lesions, no ulcers Laboratory Tests Test 09/04/16 05:25 White Blood Count 10.2 K/UL (4.8-10.8) Red Blood Count 3.80 M/UL (4.70-6.10) L Hemoglobin 11.2 G/DL (14.2-18.0) L Hematocrit 34.3 % (42.0-52.0) L Mean Corpuscular Volume 90 FL (80-99) Mean Corpuscular Hemoglobin 29.4 PG (27.0-31.0) Mean Corpuscular Hemoglobin Concent 32.6 G/DL (32.0-36.0) Red Cell Distribution Width 12.2 % (11.6-14.8) Platelet Count 342 K/UL (150-450) Mean Platelet Volume 5.4 FL (6.5-10.1) L Neutrophils (%) (Auto) 72.0 % (45.0-75.0) Lymphocytes (%) (Auto) 20.2 % (20.0-45.0) Monocytes (%) (Auto) 4.0 % (1.0-10.0) Eosinophils (%) (Auto) 3.2 % (0.0-3.0) H Basophils (%) (Auto) 0.7 % (0.0-2.0) Sodium Level 142 mEQ/L (135-145) Potassium Level 4.2 mEQ/L (3.4-4.9) Chloride Level 102 mEQ/L (98-107) Carbon Dioxide Level 26 mEQ/L (20-30) Anion Gap 14 (5-15) Blood Urea Nitrogen 7 mg/dL (7-23) Creatinine 0.9 mg/dL (0.7-1.2) Estimat Glomerular Filtration Rate > 60 mL/min (>60) Glucose Level 96 mg/dL (74-106) Calcium Level 8.8 mg/dL (8.6-10.2) Total Bilirubin 0.3 mg/dL (0.0-1.2) Aspartate Amino Transf (AST/SGOT) 9 U/L (5-40) Alanine Aminotransferase (ALT/SGPT) 5 U/L (3-41) Alkaline Phosphatase 67 U/L (40-129) Total Protein 6.2 g/dL (6.6-8.7) L Albumin 3.1 g/dL (3.5-5.2) L Globulin 3.1 g/dL Albumin/Globulin Ratio 1.0 (1.0-2.7) Coccidioides Antibody (Comp Fix) Pending Current Medications Medications (Trade) Dose Ordered Sig/Patricia Route PRN Reason Start Time Stop Time Status Last Admin Dose Admin Acetaminophen (Tylenol) 650 mg Q4H PRN ORAL T>100.5 08/20/16 06:30 09/19/16 06:29 08/30/16 20:52 Al Hydroxide/Mg Hydroxide (Mylanta II) 30 ml Q6H PRN ORAL dyspepsia 08/20/16 06:30 09/19/16 06:29 08/26/16 21:18 Dextrose STAT PRN IV Hypoglycemia 08/20/16 06:30 09/19/16 06:29 Ethambutol HCl (Myambutol) 50 mg DAILY ORAL 08/30/16 09:00 09/29/16 08:59 09/04/16 08:33 Ethambutol HCl (Myambutol) 800 mg DAILY ORAL 08/30/16 09:00 09/29/16 08:59 09/04/16 08:32 Heparin Sodium (Porcine) (Heparin 5000 units/ml) 5,000 units EVERY 12 HOURS SUBQ 08/20/16 09:00 09/19/16 08:59 09/03/16 09:13 Isoniazid (Inh) 300 mg DAILY ORAL 08/30/16 09:00 09/29/16 08:59 09/04/16 08:33 Ondansetron HCl (Zofran) 4 mg Q6H PRN IVP Nausea & Vomiting 08/20/16 06:30 09/19/16 06:29 08/27/16 21:57 Polyethylene Glycol (Miralax) 17 gm HSPRN PRN ORAL Constipation 08/20/16 21:00 09/19/16 20:59 Pyrazinamide (Pza) 1,000 mg DAILY ORAL 08/30/16 09:00 09/29/16 08:59 09/04/16 08:33 Pyridoxine HCl (Vitamin B6) 50 mg DAILY ORAL 08/30/16 09:00 09/29/16 08:59 09/04/16 08:32 Rifampin (Rifadin) 600 mg DAILY ORAL 08/30/16 17:00 09/29/16 16:59 09/04/16 08:32 Sodium Chloride (0.45% NS 1000ml) 1,000 ml @ 100 mls/hr Q10H IV 08/25/16 11:00 09/24/16 10:59 09/04/16 21:00 Zolpidem Tartrate (Ambien) 5 mg HSPRN PRN ORAL Insomnia 08/20/16 21:00 09/19/16 20:59 Srikanth Costello M.D. Sep 04, 2016 22:03
--- NOTE | 2016-09-04 22:43 | Nephrology Progress Note ---
Assessment/Plan Problem List: (1) ROMAN (acute kidney injury) Assessment: ATN? 2/2 Vanco? resolved. (2) Pneumonia Assessment: TB? (3) Mass of chest wall, left (4) Sepsis (5) Empyema lung Plan f/u AFB cultures. smear neg. f/u pulm rec. renal fxn improved d/c IVF. will monitor labs. good UOP. Subjective Subjective remains in airborne isolation. no new c/o. Objective Objective Last 24 Hour Vital Signs Date Time Temp Pulse Resp B/P Pulse Ox O2 Delivery O2 Flow Rate FiO2 09/04/16 20:26 98.1 75 18 110/60 98 Room Air 09/04/16 16:09 97.9 69 19 100/49 100 Room Air 09/04/16 12:07 97.3 70 15 103/50 100 Room Air 09/04/16 08:56 97.0 63 15 102/52 99 Room Air 09/04/16 04:00 98.2 75 18 99/50 98 Room Air 09/04/16 00:00 97.5 77 18 113/68 99 Room Air Intake and Output 09/03/16 09/04/16 19:00 07:00 Intake Total 2540 ml 1430 ml Output Total 10 ml 18 ml Balance 2530 ml 1412 ml Intake Oral 1240 ml 620 ml IV Total 1300 ml 800 ml Other 10 ml Other 10 ml 18 ml # Voids 4 4 # Bowel Movements 1 Laboratory Tests 09/04/16 05:25: White Blood Count 10.2, Red Blood Count 3.80L, Hemoglobin 11.2L, Hematocrit 34.3L, Mean Corpuscular Volume 90, Mean Corpuscular Hemoglobin 29.4, Mean Corpuscular Hemoglobin Concent 32.6, Red Cell Distribution Width 12.2, Platelet Count 342, Mean Platelet Volume 5.4L, Neutrophils (%) (Auto) 72.0, Lymphocytes ( %) (Auto) 20.2, Monocytes (%) (Auto) 4.0, Eosinophils (%) (Auto) 3.2H, Basophils (%) (Auto) 0.7, Sodium Level 142, Potassium Level 4.2, Chloride Level 102, Carbon Dioxide Level 26, Anion Gap 14, Blood Urea Nitrogen 7, Creatinine 0.9, Estimat Glomerular Filtration Rate > 60, Glucose Level 96, Calcium Level 8.8, Total Bilirubin 0.3, Aspartate Amino Transf (AST/SGOT) 9, Alanine Aminotransferase (ALT/SGPT) 5, Alkaline Phosphatase 67, Total Protein 6.2L, Albumin 3.1L, Globulin 3.1, Albumin/Globulin Ratio 1.0, Coccidioides Antibody ( Comp Fix) [Pending] Height (Feet): 5 Height (Inches): 9.00 Weight (Pounds): 125 General Appearance: no apparent distress Cardiovascular: normal rate, regular rhythm Respiratory/Chest: lungs clear Abdomen: non tender, soft DAI ROSLAES Sep 04, 2016 22:43
[2016-09-05] VITALS: BP 106/49
[2016-09-05 04:00] VITALS: BP 103/53
[2016-09-05 07:08] LABS: EOSINOPHILS % (AUTO) 3.8 % (0.0-3.0); MEAN CORPUSCULAR HEMOGLOBIN 28.7 PG (27.0-31.0); MEAN CORPUSCULAR HGB CONC 31.9 G/DL (32.0-36.0); MEAN CORPUSCULAR VOLUME 90 FL (80-99); MEAN PLATELET VOLUME 5.6 FL (6.5-10.1); MONOCYTES % (AUTO) 6.3 % (1.0-10.0); NEUTROPHILS % (AUTO) 72.9 % (45.0-75.0); PLATELET COUNT 357 K/UL (150-450); RED BLOOD COUNT 4.06 M/UL (4.70-6.10); RED CELL DISTRIBUTION WIDTH 12.1 % (11.6-14.8); WHITE BLOOD COUNT 9.5 K/UL (4.8-10.8)
[2016-09-05 07:18] LABS: ALANINE AMINOTRANSFERASE 5 U/L (3-41); ANION GAP 16 (5-15); ASPARTATE AMINO TRANSFERASE 10 U/L (5-40); CARBON DIOXIDE 25 mEQ/L (20-30); CHLORIDE 102 mEQ/L (98-107); CREATININE 0.8 mg/dL (0.7-1.2); GLOMERULAR FILTRATION RATE > 60 mL/min (>60); HEMOLYSIS 2; POTASSIUM 4.1 mEQ/L (3.4-4.9); SODIUM 143 mEQ/L (135-145); TOTAL PROTEIN 6.3 g/dL (6.6-8.7)
[2016-09-05 08:00] VITALS: BP 101/47
[2016-09-05] MEDS: ETHAMBUTOL 100 MG ORAL SCH (08:56)
[2016-09-05] MEDS: Isoniazid 300mg tab ORAL SCH (08:57)
[2016-09-05] MEDS: Pyridoxine 50mg tab ORAL SCH (08:57)
[2016-09-05] MEDS: Heparin 5000 units/ml inj SUBQ SCH ×2 (08:57→21:00)
--- NOTE | 2016-09-05 10:41 | Nephrology Progress Note ---
Assessment/Plan Problem List: (1) Lipoma of anterior chest wall (2) Empyema lung (3) Sepsis (4) Chest wall abscess (5) Pneumonia (6) ROMAN (acute kidney injury) Plan Renal function-resolved ABX per ID Surg F/U Pulmo f/u Monitor I&O Avoid nephrotoxic agents Continue Isolation am labs Subjective Constitutional: Denies: chills, diaphoresis, fever, malaise, no symptoms, other , weakness HEENT: Denies: blurred vision, double vision, ear discharge, ear pain, eye pain , mouth pain, mouth swelling, no symptoms, nose congestion, nose pain, other, tearing, throat pain, throat swelling Genitourinary: Denies: burning, discharge, flank pain, frequency, hematuria, incontinence, no symptoms, other, pain, urgency Neurologic/Psychiatric: Denies: anxiety, depressed, emotional problems, headache, no symptoms, numbness, other, paresthesia, pre-existing deficit, seizure, tingling, tremors, weakness Subjective Denies discomfort, no overnight events Objective Objective Last 24 Hour Vital Signs Date Time Temp Pulse Resp B/P Pulse Ox O2 Delivery O2 Flow Rate FiO2 09/05/16 08:00 97.9 66 20 101/47 100 Room Air 09/05/16 04:00 97.9 72 18 103/53 98 Room Air 09/05/16 00:00 98.1 74 18 106/49 96 Room Air 09/04/16 20:26 98.1 75 18 110/60 98 Room Air 09/04/16 16:09 97.9 69 19 100/49 100 Room Air 09/04/16 12:07 97.3 70 15 103/50 100 Room Air Intake and Output 09/04/16 09/05/16 19:00 07:00 Intake Total 1500 ml 445 ml Output Total 2 ml 3 ml Balance 1498 ml 442 ml Intake Oral 800 ml 440 ml IV Total 700 ml Other 5 ml Other 2 ml 3 ml # Voids 3 Laboratory Tests 09/05/16 05:10: White Blood Count 9.5, Red Blood Count 4.06L, Hemoglobin 11.7L, Hematocrit 36.5L , Mean Corpuscular Volume 90, Mean Corpuscular Hemoglobin 28.7, Mean Corpuscular Hemoglobin Concent 31.9L, Red Cell Distribution Width 12.1, Platelet Count 357, Mean Platelet Volume 5.6L, Neutrophils (%) (Auto) 72.9, Lymphocytes (%) (Auto) 16.0L, Monocytes (%) (Auto) 6.3, Eosinophils (%) (Auto) 3.8H, Basophils (%) (Auto) 1.0, Sodium Level 143, Potassium Level 4.1, Chloride Level 102, Carbon Dioxide Level 25, Anion Gap 16H, Blood Urea Nitrogen 8, Creatinine 0.8, Estimat Glomerular Filtration Rate > 60, Glucose Level 99, Calcium Level 9.0, Total Bilirubin 0.2, Aspartate Amino Transf (AST/SGOT) 10, Alanine Aminotransferase (ALT/SGPT) 5, Alkaline Phosphatase 68, Total Protein 6.3L, Albumin 3.2L, Globulin 3.1, Albumin/Globulin Ratio 1.0 Height (Feet): 5 Height (Inches): 9.00 Weight (Pounds): 125 General Appearance: no apparent distress, alert EENT: normal ENT inspection Neck: normal alignment, supple, normal inspection Cardiovascular: normal rate, regular rhythm, no JVD Respiratory/Chest: lungs clear, normal breath sounds, no respiratory distress Abdomen: non tender, soft, no organomegaly Extremities: non-tender, normal inspection, no calf tenderness Neurologic: alert, oriented x 3, responsive, normal mood/affect Zeynep Presley N.P. Sep 05, 2016 10:41
[2016-09-05 11:57] VITALS: BP 101/58
--- NOTE | 2016-09-05 14:23 | General Progress Note ---
Assessment/Plan Problem List: (1) Mass of chest wall, left ICD Codes: R22.2 - Localized swelling, mass and lump, trunk SNOMED: 687115776 (2) Pneumonia ICD Codes: J18.9 - Pneumonia, unspecified organism SNOMED: 018115823 Status: stable, progressing, tolerating diet Assessment/Plan abx per id dc plan Subjective Constitutional: Reports: weakness Allergies: Coded Allergies: No Known Allergies (Unverified , 08/13/16) All Systems: reviewed and negative except above Subjective calm no complaints Objective Last 24 Hour Vital Signs Date Time Temp Pulse Resp B/P Pulse Ox O2 Delivery O2 Flow Rate FiO2 09/05/16 11:57 97.2 72 18 101/58 100 Room Air 09/05/16 08:00 97.9 66 20 101/47 100 Room Air 09/05/16 04:00 97.9 72 18 103/53 98 Room Air 09/05/16 00:00 98.1 74 18 106/49 96 Room Air 09/04/16 20:26 98.1 75 18 110/60 98 Room Air 09/04/16 16:09 97.9 69 19 100/49 100 Room Air Intake and Output 09/04/16 09/05/16 19:00 07:00 Intake Total 1500 ml 445 ml Output Total 2 ml 3 ml Balance 1498 ml 442 ml Intake Oral 800 ml 440 ml IV Total 700 ml Other 5 ml Other 2 ml 3 ml # Voids 3 Laboratory Tests 09/05/16 05:10: White Blood Count 9.5, Red Blood Count 4.06L, Hemoglobin 11.7L, Hematocrit 36.5L , Mean Corpuscular Volume 90, Mean Corpuscular Hemoglobin 28.7, Mean Corpuscular Hemoglobin Concent 31.9L, Red Cell Distribution Width 12.1, Platelet Count 357, Mean Platelet Volume 5.6L, Neutrophils (%) (Auto) 72.9, Lymphocytes (%) (Auto) 16.0L, Monocytes (%) (Auto) 6.3, Eosinophils (%) (Auto) 3.8H, Basophils (%) (Auto) 1.0, Sodium Level 143, Potassium Level 4.1, Chloride Level 102, Carbon Dioxide Level 25, Anion Gap 16H, Blood Urea Nitrogen 8, Creatinine 0.8, Estimat Glomerular Filtration Rate > 60, Glucose Level 99, Calcium Level 9.0, Total Bilirubin 0.2, Aspartate Amino Transf (AST/SGOT) 10, Alanine Aminotransferase (ALT/SGPT) 5, Alkaline Phosphatase 68, Total Protein 6.3L, Albumin 3.2L, Globulin 3.1, Albumin/Globulin Ratio 1.0 Height (Feet): 5 Height (Inches): 9.00 Weight (Pounds): 125 General Appearance: alert EENT: normal ENT inspection Neck: normal alignment Cardiovascular: normal peripheral pulses, normal rate, regular rhythm Respiratory/Chest: chest wall non-tender, lungs clear, decreased breath sounds Abdomen: normal bowel sounds Extremities: normal inspection Edema: no edema noted Arm (L), no edema noted Arm (R), no edema noted Leg (L), no edema noted Leg (R), no edema noted Pedal (L), no edema noted Pedal (R), no edema noted Generalized Neurologic: responsive, motor weakness Skin: normal pigmentation, warm/dry Objective drain in left chest VALENTIN SCHRADER Sep 05, 2016 14:23
[2016-09-05 16:00] VITALS: BP 101/56
--- NOTE | 2016-09-05 17:05 | Infectious Diseases Prog Note ---
Assessment/Plan Problems: (1) Chest wall abscess Assessment & Plan: most likely related to TB, had I&D , with fluid culture was negative for any bacterial growth , serology is negative for fungal etiology , T spot test is positive which is suggestive of TB infection, since [place] , immigrated a year ago to [facility], no alternative diagnosis to explain it, other work up has been negative , he was started on four drugs regimen for TB. he tolerated well the medications , notified IVÁN. keep in airborne isolation for now, further recommendation as per IVÁN. 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 (2) Empyema lung Assessment & Plan: suspect TB related , had lung biopsy with pathology showed necrotizing granuloma suggestive of TB , not Angel granulomatous , since his ANCA titer was negative ,nor fungal since his serology is negative for fungal infection, so most likely TB , he was started on four drugs regimen for TB. discussed with [facility], Dr Garza , who will send lung biopsy to [facility] for PCR, and agreed on TB treatment for now. (3) Pneumonia Assessment & Plan: suspect pulmonary TB, had lung biopsy which showed necrotizing granuloma, suggesting TB too . sputum for AFB x 3 are negative so far and culture is pending. will continue four drugs regimen for TB treatment , notified [facility], who agreed on the plan .they will coordinate his discharge plan of care with us. (4) ROMAN (acute kidney injury) Assessment & Plan: improving, continue IVF for hydration and monitor renal function, avoid nephrotoxic meds Subjective Constitutional: Denies: anorexia, chills, drenching sweats, fatigue, fever, no symptoms, other HEENT: Denies: congestion, coryza, dysphagia, hearing change, no symptoms, other, visual change Respiratory: Denies: dry cough, no symptoms, other, productive cough, shortness of breath Breasts: Denies: discharge, no symptoms, other, swelling, tenderness Cardiovascular: Denies: chest pain, dyspnea on exertion, no symptoms, other, palpitations Gastrointestinal/Abdominal: Denies: bloating, blood in stool, constipation, diarrhea, nausea, no symptoms, other, vomiting Genitourinary: Denies: dysuria, frequency, hematuria, no symptoms, nocturia, other Neurologic: Denies: confusion, headache, no symptoms, numbness, other, weakness Psychiatric: Denies: anxiety, depression, no symptoms, other Skin: Denies: no symptoms, other, rash, ulcer Endocrine: Denies: feels cold, feels warm, no symptoms, other Hematologic: Denies: bleeding, no symptoms, other, swollen lymph nodes Allergies: Coded Allergies: No Known Allergies (Unverified , 08/13/16) Subjective he tolerated oral intake well. no chest pain or SOB. no rash or itching. Objective Vital Signs Last 24 Hour Vital Signs Date Time Temp Pulse Resp B/P Pulse Ox O2 Delivery O2 Flow Rate FiO2 09/05/16 16:00 97.5 66 17 101/56 100 Room Air 09/05/16 11:57 97.2 72 18 101/58 100 Room Air 09/05/16 08:00 97.9 66 20 101/47 100 Room Air 09/05/16 04:00 97.9 72 18 103/53 98 Room Air 09/05/16 00:00 98.1 74 18 106/49 96 Room Air 09/04/16 20:26 98.1 75 18 110/60 98 Room Air Height (Feet): 5 Height (Inches): 9.00 Weight (Pounds): 125 General Appearance: WD/WN, no acute distress HEENT: normocephalic, atraumatic, anicteric, mucous membranes moist Respiratory/Chest: chest wall non-tender, normal breath sounds, no respiratory distress, no accessory muscle use, decreased breath sounds, crackles/rales Cardiovascular: normal peripheral pulses, normal rate, regular rhythm, no gallop/murmur, no JVD Abdomen: normal bowel sounds, soft, non tender, no organomegaly, non distended , no mass Extremities: no cyanosis, no clubbing Skin: no rash, no lesions, no ulcers Neurologic/Psychiatric: alert, oriented x 3 Laboratory Tests Test 09/05/16 05:10 White Blood Count 9.5 K/UL (4.8-10.8) Red Blood Count 4.06 M/UL (4.70-6.10) L Hemoglobin 11.7 G/DL (14.2-18.0) L Hematocrit 36.5 % (42.0-52.0) L Mean Corpuscular Volume 90 FL (80-99) Mean Corpuscular Hemoglobin 28.7 PG (27.0-31.0) Mean Corpuscular Hemoglobin Concent 31.9 G/DL (32.0-36.0) L Red Cell Distribution Width 12.1 % (11.6-14.8) Platelet Count 357 K/UL (150-450) Mean Platelet Volume 5.6 FL (6.5-10.1) L Neutrophils (%) (Auto) 72.9 % (45.0-75.0) Lymphocytes (%) (Auto) 16.0 % (20.0-45.0) L Monocytes (%) (Auto) 6.3 % (1.0-10.0) Eosinophils (%) (Auto) 3.8 % (0.0-3.0) H Basophils (%) (Auto) 1.0 % (0.0-2.0) Sodium Level 143 mEQ/L (135-145) Potassium Level 4.1 mEQ/L (3.4-4.9) Chloride Level 102 mEQ/L (98-107) Carbon Dioxide Level 25 mEQ/L (20-30) Anion Gap 16 (5-15) H Blood Urea Nitrogen 8 mg/dL (7-23) Creatinine 0.8 mg/dL (0.7-1.2) Estimat Glomerular Filtration Rate > 60 mL/min (>60) Glucose Level 99 mg/dL (74-106) Calcium Level 9.0 mg/dL (8.6-10.2) Total Bilirubin 0.2 mg/dL (0.0-1.2) Aspartate Amino Transf (AST/SGOT) 10 U/L (5-40) Alanine Aminotransferase (ALT/SGPT) 5 U/L (3-41) Alkaline Phosphatase 68 U/L (40-129) Total Protein 6.3 g/dL (6.6-8.7) L Albumin 3.2 g/dL (3.5-5.2) L Globulin 3.1 g/dL Albumin/Globulin Ratio 1.0 (1.0-2.7) Current Medications Medications (Trade) Dose Ordered Sig/Patricia Route PRN Reason Start Time Stop Time Status Last Admin Dose Admin Acetaminophen (Tylenol) 650 mg Q4H PRN ORAL T>100.5 08/20/16 06:30 09/19/16 06:29 08/30/16 20:52 Al Hydroxide/Mg Hydroxide (Mylanta II) 30 ml Q6H PRN ORAL dyspepsia 08/20/16 06:30 09/19/16 06:29 08/26/16 21:18 Dextrose (Dextrose 50%) STAT PRN IV Hypoglycemia 08/20/16 06:30 09/19/16 06:29 Ethambutol HCl (Myambutol) 50 mg DAILY ORAL 08/30/16 09:00 09/29/16 08:59 09/05/16 08:56 Ethambutol HCl (Myambutol) 800 mg DAILY ORAL 08/30/16 09:00 09/29/16 08:59 09/05/16 08:56 Heparin Sodium (Porcine) (Heparin 5000 units/ml) 5,000 units EVERY 12 HOURS SUBQ 08/20/16 09:00 09/19/16 08:59 09/03/16 09:13 Isoniazid (Inh) 300 mg DAILY ORAL 08/30/16 09:00 09/29/16 08:59 09/05/16 08:57 Ondansetron HCl (Zofran) 4 mg Q6H PRN IVP Nausea & Vomiting 08/20/16 06:30 09/19/16 06:29 08/27/16 21:57 Polyethylene Glycol (Miralax) 17 gm HSPRN PRN ORAL Constipation 08/20/16 21:00 09/19/16 20:59 Pyrazinamide (Pza) 1,000 mg DAILY ORAL 08/30/16 09:00 09/29/16 08:59 09/05/16 08:56 Pyridoxine HCl (Vitamin B6) 50 mg DAILY ORAL 08/30/16 09:00 09/29/16 08:59 09/05/16 08:57 Rifampin (Rifadin) 600 mg DAILY ORAL 08/30/16 17:00 09/29/16 16:59 09/05/16 08:57 Zolpidem Tartrate (Ambien) 5 mg HSPRN PRN ORAL Insomnia 08/20/16 21:00 09/19/16 20:59 Srikanth Costello M.D. Sep 05, 2016 17:05
--- NOTE | 2016-09-05 17:49 | General Progress Note ---
Assessment/Plan Assessment/Plan Assessment: # Anemia 2/2 chronic disease - currently improved, >11.0 # Leukocytosis likely 2/2 underlying infection # Thrombocytosis - 2/2 reactive process, slowly better # Chest well abscess - potentially TB related, biopsy of lung shows necrotizing granuloma # Empyema of the lung, potentially TB related # Sepsis # PNA # ROMAN - has improved Recs: - Monitor counts - Peripheral smear reviewed - Monitor coagulopathy - Anemia workup reviewed - ABx as needed - DVT ppx with heparin sq - F/u on pulm, ID recs - DW Staff Thank you, Steven Medel MD Subjective Constitutional: Reports: no symptoms HEENT: Reports: no symptoms Cardiovascular: Reports: no symptoms Respiratory: Reports: no symptoms Gastrointestinal/Abdominal: Reports: no symptoms Genitourinary: Reports: no symptoms Neurologic/Psychiatric: Reports: no symptoms Endocrine: Reports: no symptoms Hematologic/Lymphatic: Reports: anemia Allergies: Coded Allergies: No Known Allergies (Unverified , 08/13/16) Subjective stable, no fevers, not bleeding at this time Objective Last 24 Hour Vital Signs Date Time Temp Pulse Resp B/P Pulse Ox O2 Delivery O2 Flow Rate FiO2 09/05/16 16:00 97.5 66 17 101/56 100 Room Air 09/05/16 11:57 97.2 72 18 101/58 100 Room Air 09/05/16 08:00 97.9 66 20 101/47 100 Room Air 09/05/16 04:00 97.9 72 18 103/53 98 Room Air 09/05/16 00:00 98.1 74 18 106/49 96 Room Air 09/04/16 20:26 98.1 75 18 110/60 98 Room Air Intake and Output 09/04/16 09/05/16 19:00 07:00 Intake Total 1500 ml 445 ml Output Total 2 ml 3 ml Balance 1498 ml 442 ml Intake Oral 800 ml 440 ml IV Total 700 ml Other 5 ml Other 2 ml 3 ml # Voids 3 Laboratory Tests 09/05/16 05:10: White Blood Count 9.5, Red Blood Count 4.06L, Hemoglobin 11.7L, Hematocrit 36.5L , Mean Corpuscular Volume 90, Mean Corpuscular Hemoglobin 28.7, Mean Corpuscular Hemoglobin Concent 31.9L, Red Cell Distribution Width 12.1, Platelet Count 357, Mean Platelet Volume 5.6L, Neutrophils (%) (Auto) 72.9, Lymphocytes (%) (Auto) 16.0L, Monocytes (%) (Auto) 6.3, Eosinophils (%) (Auto) 3.8H, Basophils (%) (Auto) 1.0, Sodium Level 143, Potassium Level 4.1, Chloride Level 102, Carbon Dioxide Level 25, Anion Gap 16H, Blood Urea Nitrogen 8, Creatinine 0.8, Estimat Glomerular Filtration Rate > 60, Glucose Level 99, Calcium Level 9.0, Total Bilirubin 0.2, Aspartate Amino Transf (AST/SGOT) 10, Alanine Aminotransferase (ALT/SGPT) 5, Alkaline Phosphatase 68, Total Protein 6.3L, Albumin 3.2L, Globulin 3.1, Albumin/Globulin Ratio 1.0 Height (Feet): 5 Height (Inches): 9.00 Weight (Pounds): 125 General Appearance: WD/WN EENT: TMs normal Neck: supple Cardiovascular: regular rhythm Respiratory/Chest: lungs clear Abdomen: non tender Extremities: non-tender Edema: 1+ Leg (L), 1+ Leg (R) Edema: mild edema Neurologic: alert Skin: warm/dry Steven Medel Sep 05, 2016 17:49
[2016-09-05 20:00] VITALS: BP 117/50
[2016-09-06] VITALS: BP 117/46
[2016-09-06 04:00] VITALS: BP 105/46
[2016-09-06 07:08] LABS: ALANINE AMINOTRANSFERASE 7 U/L (3-41); ALBUMIN/GLOBULIN RATIO 1.2 (1.0-2.7); ANION GAP 16 (5-15); ASPARTATE AMINO TRANSFERASE 11 U/L (5-40); CALCIUM 9.1 mg/dL (8.6-10.2); CARBON DIOXIDE 26 mEQ/L (20-30); CHLORIDE 100 mEQ/L (98-107); CREATININE 0.8 mg/dL (0.7-1.2); GLOMERULAR FILTRATION RATE > 60 mL/min (>60); HEMOLYSIS 4; POTASSIUM 4.1 mEQ/L (3.4-4.9); SODIUM 142 mEQ/L (135-145); TOTAL PROTEIN 6.7 g/dL (6.6-8.7)
[2016-09-06 08:00] VITALS: BP 107/44
[2016-09-06] MEDS: Heparin 5000 units/ml inj SUBQ SCH (09:00)
[2016-09-06] MEDS: ETHAMBUTOL 100 MG ORAL SCH (09:04)
[2016-09-06] MEDS: Pyridoxine 50mg tab ORAL SCH (09:05)
[2016-09-06] MEDS: Isoniazid 300mg tab ORAL SCH (09:05)
--- NOTE | 2016-09-06 09:54 | Nephrology Progress Note ---
Assessment/Plan Problem List: (1) Lipoma of anterior chest wall (2) Empyema lung (3) Sepsis (4) Chest wall abscess (5) Pneumonia (6) ROMAN (acute kidney injury) Plan Renal function-resolved ABX per ID Surg F/U Pulmo f/u Monitor I&O Avoid nephrotoxic agents Continue Isolation am labs Subjective Constitutional: Denies: chills, diaphoresis, fever, malaise, no symptoms, other , weakness HEENT: Denies: blurred vision, double vision, ear discharge, ear pain, eye pain , mouth pain, mouth swelling, no symptoms, nose congestion, nose pain, other, tearing, throat pain, throat swelling Genitourinary: Denies: burning, discharge, flank pain, frequency, hematuria, incontinence, no symptoms, other, pain, urgency Neurologic/Psychiatric: Denies: anxiety, depressed, emotional problems, headache, no symptoms, numbness, other, paresthesia, pre-existing deficit, seizure, tingling, tremors, weakness Subjective Denies discomfort, no overnight events Objective Objective Last 24 Hour Vital Signs Date Time Temp Pulse Resp B/P Pulse Ox O2 Delivery O2 Flow Rate FiO2 09/06/16 08:00 97.2 59 18 107/44 Room Air 09/06/16 04:00 97.5 70 18 105/46 99 Room Air 09/06/16 00:00 97.2 71 18 117/46 98 Room Air 09/05/16 20:00 98.1 76 17 117/50 100 Room Air 09/05/16 16:00 97.5 66 17 101/56 100 Room Air 09/05/16 11:57 97.2 72 18 101/58 100 Room Air Intake and Output 09/05/16 09/06/16 19:00 07:00 Intake Total 840 ml 740 ml Balance 840 ml 740 ml Intake Oral 840 ml 740 ml # Voids 3 6 # Bowel Movements 2 Laboratory Tests 09/06/16 06:00: Sodium Level 142, Potassium Level 4.1, Chloride Level 100, Carbon Dioxide Level 26, Anion Gap 16H, Blood Urea Nitrogen 7, Creatinine 0.8, Estimat Glomerular Filtration Rate > 60, Glucose Level 99, Calcium Level 9.1, Total Bilirubin 0.2, Aspartate Amino Transf (AST/SGOT) 11, Alanine Aminotransferase (ALT/SGPT) 7, Alkaline Phosphatase 69, Total Protein 6.7, Albumin 3.7, Globulin 3.0, Albumin/ Globulin Ratio 1.2 Height (Feet): 5 Height (Inches): 9.00 Weight (Pounds): 125 General Appearance: no apparent distress, alert EENT: normal ENT inspection Neck: normal alignment, supple, normal inspection Cardiovascular: normal rate, regular rhythm, no JVD Respiratory/Chest: normal breath sounds, no respiratory distress Abdomen: soft, no organomegaly, no mass Extremities: non-tender, normal inspection, no calf tenderness, normal capillary refill Neurologic: alert, oriented x 3, responsive, normal mood/affect Zeynep Presley N.P. Sep 06, 2016 09:54
[2016-09-06 12:21] VITALS: BP 100/60
--- NOTE | 2016-09-06 14:00 | General Progress Note ---
Assessment/Plan Problem List: (1) Mass of chest wall, left ICD Codes: R22.2 - Localized swelling, mass and lump, trunk SNOMED: [id number] (2) Pneumonia ICD Codes: J18.9 - Pneumonia, unspecified organism SNOMED: 626837229 Status: stable, progressing, tolerating diet Assessment/Plan abx per id dc plan Subjective Constitutional: Reports: weakness Allergies: Coded Allergies: No Known Allergies (Unverified , 08/13/16) All Systems: reviewed and negative except above Subjective calm no complaints Objective Last 24 Hour Vital Signs Date Time Temp Pulse Resp B/P Pulse Ox O2 Delivery O2 Flow Rate FiO2 09/06/16 12:21 97.7 72 18 100/60 98 Room Air 09/06/16 08:00 97.2 59 18 107/44 Room Air 09/06/16 04:00 97.5 70 18 105/46 99 Room Air 09/06/16 00:00 97.2 71 18 117/46 98 Room Air 09/05/16 20:00 98.1 76 17 117/50 100 Room Air 09/05/16 16:00 97.5 66 17 101/56 100 Room Air Intake and Output 09/05/16 09/06/16 19:00 07:00 Intake Total 840 ml 740 ml Balance 840 ml 740 ml Intake Oral 840 ml 740 ml # Voids 3 6 # Bowel Movements 2 Laboratory Tests 09/06/16 06:00: Sodium Level 142, Potassium Level 4.1, Chloride Level 100, Carbon Dioxide Level 26, Anion Gap 16H, Blood Urea Nitrogen 7, Creatinine 0.8, Estimat Glomerular Filtration Rate > 60, Glucose Level 99, Calcium Level 9.1, Total Bilirubin 0.2, Aspartate Amino Transf (AST/SGOT) 11, Alanine Aminotransferase (ALT/SGPT) 7, Alkaline Phosphatase 69, Total Protein 6.7, Albumin 3.7, Globulin 3.0, Albumin/ Globulin Ratio 1.2 Height (Feet): 5 Height (Inches): 9.00 Weight (Pounds): 125 General Appearance: lethargic EENT: normal ENT inspection Neck: normal alignment Cardiovascular: normal peripheral pulses, normal rate, regular rhythm Respiratory/Chest: chest wall non-tender, lungs clear, normal breath sounds Abdomen: normal bowel sounds, non tender, soft Extremities: normal inspection Edema: no edema noted Arm (L), no edema noted Arm (R), no edema noted Leg (L), no edema noted Leg (R), no edema noted Pedal (L), no edema noted Pedal (R), no edema noted Generalized Neurologic: responsive, motor weakness Skin: normal pigmentation, warm/dry Objective drain in left chest VALENTIN SCHRADER Sep 06, 2016 14:00
--- NOTE | 2016-09-06 15:56 | General Progress Note ---
Assessment/Plan Assessment/Plan Assessment: # Anemia 2/2 chronic disease - currently improved, >11.0 # Leukocytosis likely 2/2 underlying infection # Thrombocytosis - 2/2 reactive process, slowly better # Chest well abscess - potentially TB related, biopsy of lung shows necrotizing granuloma # Empyema of the lung, potentially TB related # Sepsis # PNA # ROMAN - has improved Recs: - Monitor counts - Peripheral smear reviewed - Monitor coagulopathy - Anemia workup reviewed - ABx as needed - DVT ppx with heparin sq - F/u on pulm, ID recs - DW Staff Thank you, Steven Medel MD Subjective Constitutional: Reports: no symptoms HEENT: Reports: no symptoms Cardiovascular: Reports: no symptoms Respiratory: Reports: no symptoms Gastrointestinal/Abdominal: Reports: poor appetite Genitourinary: Reports: no symptoms Neurologic/Psychiatric: Reports: no symptoms Endocrine: Reports: no symptoms Hematologic/Lymphatic: Reports: anemia Allergies: Coded Allergies: No Known Allergies (Unverified , 08/13/16) Subjective stable, no fevers, not bleeding at this time Objective Last 24 Hour Vital Signs Date Time Temp Pulse Resp B/P Pulse Ox O2 Delivery O2 Flow Rate FiO2 09/06/16 12:21 97.7 72 18 100/60 98 Room Air 09/06/16 08:00 97.2 59 18 107/44 Room Air 09/06/16 04:00 97.5 70 18 105/46 99 Room Air 09/06/16 00:00 97.2 71 18 117/46 98 Room Air 09/05/16 20:00 98.1 76 17 117/50 100 Room Air 09/05/16 16:00 97.5 66 17 101/56 100 Room Air Intake and Output 09/05/16 09/06/16 19:00 07:00 Intake Total 840 ml 740 ml Balance 840 ml 740 ml Intake Oral 840 ml 740 ml # Voids 3 6 # Bowel Movements 2 Laboratory Tests 09/06/16 06:00: Sodium Level 142, Potassium Level 4.1, Chloride Level 100, Carbon Dioxide Level 26, Anion Gap 16H, Blood Urea Nitrogen 7, Creatinine 0.8, Estimat Glomerular Filtration Rate > 60, Glucose Level 99, Calcium Level 9.1, Total Bilirubin 0.2, Aspartate Amino Transf (AST/SGOT) 11, Alanine Aminotransferase (ALT/SGPT) 7, Alkaline Phosphatase 69, Total Protein 6.7, Albumin 3.7, Globulin 3.0, Albumin/ Globulin Ratio 1.2 Height (Feet): 5 Height (Inches): 9.00 Weight (Pounds): 125 General Appearance: no apparent distress EENT: TMs normal Neck: supple Cardiovascular: regular rhythm Respiratory/Chest: normal breath sounds Abdomen: soft Extremities: non-tender Edema: 1+ Leg (L), 1+ Leg (R) Edema: mild edema Neurologic: alert Skin: warm/dry Steven Medel Sep 06, 2016 15:56
[2016-09-06 16:00] VITALS: BP 115/71
--- NOTE | 2016-09-06 17:34 | Infectious Diseases Prog Note ---
Assessment/Plan Problems: (1) Chest wall abscess Assessment & Plan: suspect TB, S/P I&D , with fluid culture is negative for any bacterial growth , serology is negative for fungal etiology , T spot test is positive which is suggestive of TB infection, since [place] , immigrated a year ago to [facility], no alternative diagnosis to explain it, other work up has been negative , he was started on four drugs regimen for TB. he tolerated well the medications , notified [facility]. keep in airborne isolation for now, further recommendation as per [facility]. 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 (2) Empyema lung Assessment & Plan: suspect TB related , had lung biopsy with pathology showed necrotizing granuloma suggestive of TB , not Angel granulomatous , since his ANCA titer was negative ,nor fungal since his serology is negative for fungal infection, so most likely TB , he was started on four drugs regimen for TB. discussed with [facility], Dr Garza , who will send lung biopsy to [facility] for PCR, and agreed on TB treatment for now. lung biopsy was sent to [facility] for PCR test to identify the exact organisms (3) Pneumonia Assessment & Plan: suspect pulmonary TB, had lung biopsy which showed necrotizing granuloma, suggesting TB . sputum for AFB x 3 are negative so far and culture is pending. will continue four drugs regimen for TB treatment , notified [facility], who agreed on the plan .they will coordinate his discharge plan of care with us. (4) ROMAN (acute kidney injury) Assessment & Plan: improving, continue IVF for hydration and monitor renal function, avoid nephrotoxic meds Subjective Constitutional: Denies: anorexia, chills, drenching sweats, fatigue, fever, no symptoms, other HEENT: Denies: congestion, coryza, dysphagia, hearing change, no symptoms, other, visual change Respiratory: Denies: dry cough, no symptoms, other, productive cough, shortness of breath Breasts: Denies: discharge, no symptoms, other, swelling, tenderness Cardiovascular: Denies: chest pain, dyspnea on exertion, no symptoms, other, palpitations Gastrointestinal/Abdominal: Denies: bloating, blood in stool, constipation, diarrhea, nausea, no symptoms, other, vomiting Genitourinary: Denies: dysuria, frequency, hematuria, no symptoms, nocturia, other Neurologic: Denies: confusion, headache, no symptoms, numbness, other, weakness Psychiatric: Denies: anxiety, depression, no symptoms, other Skin: Denies: no symptoms, other, rash, ulcer Endocrine: Denies: feels cold, feels warm, no symptoms, other Hematologic: Denies: bleeding, no symptoms, other, swollen lymph nodes Allergies: Coded Allergies: No Known Allergies (Unverified , 08/13/16) Subjective he tolerated oral intake well. no chest pain or SOB. no rash or itching. Objective Vital Signs Last 24 Hour Vital Signs Date Time Temp Pulse Resp B/P Pulse Ox O2 Delivery O2 Flow Rate FiO2 09/06/16 16:00 97.9 66 18 115/71 100 Room Air 09/06/16 12:21 97.7 72 18 100/60 98 Room Air 09/06/16 08:00 97.2 59 18 107/44 Room Air 09/06/16 04:00 97.5 70 18 105/46 99 Room Air 09/06/16 00:00 97.2 71 18 117/46 98 Room Air 09/05/16 20:00 98.1 76 17 117/50 100 Room Air Height (Feet): 5 Height (Inches): 9.00 Weight (Pounds): 125 General Appearance: WD/WN, no acute distress HEENT: normocephalic, atraumatic, anicteric, mucous membranes moist Respiratory/Chest: chest wall non-tender, lungs clear, normal breath sounds, no respiratory distress, no accessory muscle use Cardiovascular: normal peripheral pulses, normal rate, regular rhythm, no gallop/murmur Abdomen: normal bowel sounds, soft, non tender, no organomegaly, non distended , no mass Extremities: no cyanosis, no clubbing Skin: no rash, no lesions, no ulcers Laboratory Tests Test 09/06/16 06:00 Sodium Level 142 mEQ/L (135-145) Potassium Level 4.1 mEQ/L (3.4-4.9) Chloride Level 100 mEQ/L (98-107) Carbon Dioxide Level 26 mEQ/L (20-30) Anion Gap 16 (5-15) H Blood Urea Nitrogen 7 mg/dL (7-23) Creatinine 0.8 mg/dL (0.7-1.2) Estimat Glomerular Filtration Rate > 60 mL/min (>60) Glucose Level 99 mg/dL (74-106) Calcium Level 9.1 mg/dL (8.6-10.2) Total Bilirubin 0.2 mg/dL (0.0-1.2) Aspartate Amino Transf (AST/SGOT) 11 U/L (5-40) Alanine Aminotransferase (ALT/SGPT) 7 U/L (3-41) Alkaline Phosphatase 69 U/L (40-129) Total Protein 6.7 g/dL (6.6-8.7) Albumin 3.7 g/dL (3.5-5.2) Globulin 3.0 g/dL Albumin/Globulin Ratio 1.2 (1.0-2.7) Current Medications Medications (Trade) Dose Ordered Sig/Patricia Route PRN Reason Start Time Stop Time Status Last Admin Dose Admin Acetaminophen (Tylenol) 650 mg Q4H PRN ORAL T>100.5 08/20/16 06:30 09/19/16 06:29 08/30/16 20:52 Al Hydroxide/Mg Hydroxide (Mylanta II) 30 ml Q6H PRN ORAL dyspepsia 08/20/16 06:30 09/19/16 06:29 08/26/16 21:18 Dextrose (Dextrose 50%) STAT PRN IV Hypoglycemia 08/20/16 06:30 09/19/16 06:29 Ethambutol HCl (Myambutol) 50 mg DAILY ORAL 08/30/16 09:00 09/29/16 08:59 09/06/16 09:04 Ethambutol HCl (Myambutol) 800 mg DAILY ORAL 08/30/16 09:00 09/29/16 08:59 09/06/16 09:04 Heparin Sodium (Porcine) (Heparin 5000 units/ml) 5,000 units EVERY 12 HOURS SUBQ 08/20/16 09:00 09/19/16 08:59 09/03/16 09:13 Isoniazid (Inh) 300 mg DAILY ORAL 08/30/16 09:00 09/29/16 08:59 09/06/16 09:05 Ondansetron HCl (Zofran) 4 mg Q6H PRN IVP Nausea & Vomiting 08/20/16 06:30 09/19/16 06:29 08/27/16 21:57 Polyethylene Glycol (Miralax) 17 gm HSPRN PRN ORAL Constipation 08/20/16 21:00 09/19/16 20:59 Pyrazinamide (Pza) 1,000 mg DAILY ORAL 08/30/16 09:00 09/29/16 08:59 09/06/16 09:05 Pyridoxine HCl (Vitamin B6) 50 mg DAILY ORAL 08/30/16 09:00 09/29/16 08:59 09/06/16 09:05 Rifampin (Rifadin) 600 mg DAILY ORAL 08/30/16 17:00 09/29/16 16:59 09/06/16 09:05 Zolpidem Tartrate (Ambien) 5 mg HSPRN PRN ORAL Insomnia 08/20/16 21:00 09/19/16 20:59 Srikanth Costello M.D. Sep 06, 2016 17:34
[2016-09-06 20:00] VITALS: BP 117/60
[2016-09-06] MEDS ORDERED: 1/2 NS 1000ml IV ONE (23:57)
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
--- NOTE | 2016-09-07 14:40 | Discharge Summary ---
Discharge Summary Hospital Course Date of Admission Aug 20, 2016 at 03:51 Date of Discharge Sep 06, 2016 at 23:58 Admitting Diagnosis abscess, pneumonia HPI Erasmo Lehman is a 20 year old male who was admitted on Aug 20, 2016 at 03:51 for Abscess,Pneumonia Hospital Course [id number] Discharge Discharge Disposition Patient was discharged to Home with Home Health(06) Discharge Diagnoses: Angelique Freitas NP Sep 07, 2016 14:40
--- NOTE | 2016-09-07 23:59 | Discharge Summary 2 SIG ---
DATE OF ADMISSION: 08/20/2016 DATE OF DISCHARGE: 09/06/2016 CONSULTANTS: 1. Srikanth Costello M.D. 2. Rama Handley M.D. 3. Joseph Arceo M.D. 4. Hunter Medel M.D. 5. Abiodun Woodruff M.D. BRIEF HOSPITAL COURSE: The patient is a 20-year-old male, who presented to the ED for the left chest swelling and tenderness. On evaluation at ED, CT scan of the chest showed subcutaneous hypodense fluid collections suggesting abscess. Dr. Costello was consulted and the patient was started empirically on vancomycin and Zosyn. AFB stain suspect TB. He was seen by Dr. Arceo and underwent CT-guided aspiration and placement of the catheter drainage on the left chest wall abscess. Fluids were sent for culture and was negative for bacterial growth. Serologies negative for fungal etiology. T-SPOT positive, which is suggestive of TB infection. He was started on 4-day drug regimen for TB and [facility] was notified. Sputum culture and AFB was negative x3. The patient on four drugs for TB treatment. On the day of discharge, he was given seven day supply of TB medications and was given clearance from [facility] for discharge. FINAL DIAGNOSES: 1. Chest wall abscess suspect tuberculosis. 2. Empyema of the lung, suggestive of tuberculosis. 3. Pneumonia. 4. Acute kidney injury. 5. Anemia secondary to chronic disease. 6. Leukocytosis and thrombocytosis secondary to infection and reactive process. 7. Lipoma of anterior chest wall. Brody Abrams D.O. I have been assigned to dictate discharge summary on this account and I was not involved in the patient's management. Angelique Freitas N.P. DR: MARIAH JOB#: [id number] CC: [place]
--- NOTE | 2016-10-31 14:18 | General Progress Note ---
Progress Note Progress Note On 10/04/2016, the pigtail drainage catheter in the left chest wall was removed SUJIT KAY M.D. Oct 31, 2016 14:18
== END 2016-09-06 23:58 | disposition home or self-care (01) | DRG 137 ==
LOC: ENRESERVTM → ENRESERVDT → ENRESERV → EMR 00:42 → 4E 03:51 → EDBEDREQ 04:01 → 3E 08-21 20:30
PROC: 0W9830Z Drainage of Chest Wall with Drainage Device, Percutaneous Approach (ICD-10-PCS; principal; 2016-08-20)
PROC: 0BBG3ZX Excision of Left Upper Lung Lobe, Percutaneous Approach, Diagnostic (ICD-10-PCS; 2016-08-22)
DX: A15.0 Tuberculosis of lung (principal); J86.9 Pyothorax without fistula; A41.9 Sepsis, unspecified organism; N17.9 Acute kidney failure, unspecified; L02.213 Cutaneous abscess of chest wall; J18.9 Pneumonia, unspecified organism; D63.8 Anemia in other chronic diseases classified elsewhere; D17.1 Benign lipomatous neoplasm of skin and subcutaneous tissue of trunk; D47.3 Essential (hemorrhagic) thrombocythemia
CPT/HCPCS: 36415; 36589; 71010; 71250; 71260; 75989; 76775; 80048; 80053; 80061; 80076; 80202; 82378; 82550; 83036; 83615; 84443; 85025; 85610; 85730; 86021; 86039; 86171; 86431; 86580; 86612; 86635; 86703; 86709; 86803; 87070; 87075; 87116; 87205; 87340; 87449; 87556; 88104; 97802; J2405; J3490